=== PATIENT | male | born 1960 | race Caucasian/White ===

== ENCOUNTER 2018-11-25 16:34 | Emergency (ER) | payer BC ==
[2018-11-25] MEDS ORDERED: DIPH,PERTUS(ACELL)TETVAC-LF 0.5 ML VIAL IM ONE (17:23)
--- NOTE | 2018-11-25 17:48 | ED ---
General Adult HPI - General Chief complaint: Wound/Laceration Stated complaint: Finger Lac Time Seen by Provider: 11/25/18 16:54 Source: patient, RN notes reviewed Mode of arrival: ambulatory Limitations: no limitations - History of Present Illness Initial comments: 58-year-old male percent to the emergency department for a chief of an of laceration. This occurred about one hour prior to arrival. Patient was working on duct work in his house when he accidentally lacerated the third and fourth digit of his right hand. Patient denies any difficulty with movement of the fingers. He denies any other injuries. Tetanus is not up-to-date. Patient has no other complaints at this time including shortness of breath, chest pain, abdominal pain, nausea or vomiting, headache, or visual changes. - Related Data Previous Rx's Medication Instructions Recorded Cephalexin [Keflex] 500 mg PO Q6HR 3 Days #12 cap 11/25/18 Allergies Allergy/AdvReac Type Severity Reaction Status Date / Time No Known Allergies Allergy Verified 11/25/18 16:45 Review of Systems ROS Statement: Those systems with pertinent positive or pertinent negative responses have been documented in the HPI. ROS Other: All systems not noted in ROS Statement are negative. Past Medical History Past Medical History: No Reported History History of Any Multi-Drug Resistant Organisms: None Reported Past Surgical History: Tonsillectomy Past Psychological History: No Psychological Hx Reported Smoking Status: Never smoker Past Alcohol Use History: Occasional Past Drug Use History: None Reported General Exam Limitations: no limitations General appearance: alert, in no apparent distress Head exam: Present: atraumatic, normocephalic, normal inspection Eye exam: Present: normal appearance, PERRL, EOMI. Absent: scleral icterus, conjunctival injection, periorbital swelling ENT exam: Present: normal exam, mucous membranes moist Neck exam: Present: normal inspection, full ROM. Absent: tenderness, meningismus, lymphadenopathy Respiratory exam: Present: normal lung sounds bilaterally. Absent: respiratory distress, wheezes, rales, rhonchi, stridor Cardiovascular Exam: Present: regular rate, normal rhythm, normal heart sounds. Absent: systolic murmur, diastolic murmur, rubs, gallop, clicks Extremities exam: Present: full ROM (Full range of motion of the right third MCP , PIP, and DIP joint. Full range of motion of the fourth right MCP, PIP, DIP joint.), normal capillary refill (Capillary refill less than 2 seconds in the third and fourth right fingers. Radial pulse 2+.), other (Patient does have a 1 cm laceration over the third dorsal DIP joint of the right finger as well as a 1.5 cm laceration over the fourth dorsal DIP joint of the right finger. No evidence of deep structure involvement. No foreign bodies on exam.) Neurological exam: Present: alert, oriented X3, CN II-XII intact Psychiatric exam: Present: normal affect, normal mood Course Vital Signs 11/25/18 16:42 Temperature 98.6 F Pulse Rate 65 Respiratory 20 Rate Blood Pressure 150/85 O2 Sat by Pulse 100 Oximetry Procedures - Laceration Laceration #1 Indication: laceration Site: other (Third right finger) Size (cm): 1 Description: linear Depth: simple, single layer Anesthetic Used: lidocaine 1% Anesthesia Technique: local infiltration Amount (mls): 2 Pre-repair: wound explored, irrigated extensively, deep structures intact Type of Sutures: other (ethilon) Size of Sutures: 5-0 Number of Sutures: 2 Technique: simple, interrupted Patient Tolerated Procedure: well, no complications Laceration #2 Consent Obtained: verbal consent Indication: laceration Site: other (4th finger) Size (cm): 2 Description: linear Depth: simple, single layer Anesthetic Used: lidocaine 1% Anesthesia Technique: local infiltration Amount (mls): 2 Pre-repair: wound explored, irrigated extensively, deep structures intact Type of Sutures: other (ethilon) Size of Sutures: 5-0 Number of Sutures: 3 Technique: simple, interrupted Patient Tolerated Procedure: well, no complications Medical Decision Making - Medical Decision Making 50-year-old male presents to the emergency department for chief complaint of laceration to the right third and fourth digits. Tetanus was updated. Patient has full range motion of the joints in the right third and fourth fingers, no evidence of tendon injury. No foreign bodies evident. Wound was cleaned thoroughly with soap and water and saline pressure irrigation. It was then sutured with simple interrupted sutures without any Medications. Patient was given 3 days of antibiotics as lacerations are on dorsal fingers. Discussed watching for signs of infection. Discussed returning in 7-10 days to have sutures removed. Patient will follow up with primary care for a wound recheck in one to 2 days. Disposition Clinical Impression: Laceration Disposition: HOME SELF-CARE Condition: Good Instructions (If sedation given, give patient instructions): Care For Your Stitches (ED), Laceration (ED) Additional Instructions: Please keep area clean. Monitor for signs of infection such as spreading or streaking redness and return if these occur. Take antibiotic as directed. Follow up with primary care for a wound recheck in one to 2 days. Return to have Sutures removed in 7-10 days. Return if you have any worsening symptoms or signs of infection. Prescriptions: Cephalexin [Keflex] 500 mg PO Q6HR 3 Days #12 cap Is patient prescribed a controlled substance at d/c from ED?: No Referrals: Rick Ventura MD [Primary Care Provider] - 1-2 days Time of Disposition: 17:46
[2018-11-25 18:05] VITALS: BP 139/81; PULSE 68; RESP 18; TEMP 98.1
== END 2018-11-25 18:05 | disposition home or self-care (01) ==
LOC: EC 16:34
DX: S61.212A Laceration without foreign body of right middle finger without damage to nail, initial encounter (principal); S61.214A Laceration without foreign body of right ring finger without damage to nail, initial encounter; Z23 Encounter for immunization; W26.8XXA Contact with other sharp object(s), not elsewhere classified, initial encounter; Y93.89 Activity, other specified; Y92.009 Unspecified place in unspecified non-institutional (private) residence as the place of occurrence of the external cause
CPT/HCPCS: 12002; 90471; 90715; 99282

== ENCOUNTER 2020-07-02 17:00 | Emergency (ER) | payer BC ==
[2020-07-02 17:10] VITALS: TEMP 98.3
--- NOTE | 2020-07-02 17:45 | ED ---
General Adult HPI - General Chief complaint: Wound/Laceration Stated complaint: wrist lac Time Seen by Provider: 07/02/20 17:16 Source: patient, RN notes reviewed Mode of arrival: ambulatory Limitations: no limitations - History of Present Illness Initial comments: 60-year-old male presents to the ER for laceration of the right wrist. Patient reports that he was using a utility knife when it slipped and cut him in the right wrist. States it was bleeding. Denies any pulsatile bleeding. Denies any numbness in his hand. Denies any difficulty flexing or extending his wrist. Patient is up-to-date on tetanus.Patient has no other complaints at this time including shortness of breath, chest pain, abdominal pain, nausea or vomiting, headache, or visual changes. - Related Data Previous Rx's Medication Instructions Recorded Cephalexin [Keflex] 500 mg PO Q6HR 3 Days #12 cap 11/25/18 Cephalexin [Keflex] 500 mg PO TID 7 Days #21 cap 07/02/20 Allergies Allergy/AdvReac Type Severity Reaction Status Date / Time No Known Allergies Allergy Verified 07/02/20 17:08 Review of Systems ROS Statement: Those systems with pertinent positive or pertinent negative responses have been documented in the HPI. ROS Other: All systems not noted in ROS Statement are negative. Past Medical History Past Medical History: Hyperlipidemia, Hypertension History of Any Multi-Drug Resistant Organisms: None Reported Past Surgical History: Tonsillectomy Past Psychological History: No Psychological Hx Reported Smoking Status: Former smoker Past Alcohol Use History: Daily Past Drug Use History: None Reported General Exam Limitations: no limitations General appearance: alert, in no apparent distress Head exam: Present: atraumatic, normocephalic, normal inspection Eye exam: Present: normal appearance ENT exam: Present: normal exam, mucous membranes moist Neck exam: Present: normal inspection. Absent: tenderness, meningismus, lymphadenopathy Respiratory exam: Present: normal lung sounds bilaterally. Absent: respiratory distress, wheezes, rales, rhonchi, stridor Cardiovascular Exam: Present: regular rate, normal rhythm, normal heart sounds. Absent: systolic murmur, diastolic murmur, rubs, gallop, clicks Extremities exam: Present: other (Patient has a 7 mm duration noted to the volar aspect of the right distal forearm about 6 cm from the flexor crease of the wrist. This is in the midline of the wrist and is not near radial or ulnar arteries.) Course Vital Signs 07/02/20 17:05 Temperature 98.3 F Pulse Rate 73 Respiratory 18 Rate Blood Pressure 198/98 O2 Sat by Pulse 98 Oximetry Procedures - Laceration Laceration #1 Consent Obtained: verbal consent Indication: laceration Site: upper extremity Size (cm): 1 Description: linear Depth: simple, single layer Type of Sutures: nylon Size of Sutures: 5-0 Number of Sutures: 1 Technique: simple, interrupted Patient Tolerated Procedure: well, no complications Medical Decision Making - Medical Decision Making No bleeding at this time. No history of pulsatile bleeding. Laceration does not involve area near arteries. It is less than a centimeter. No obvious tendon injury. Patient was started on antibiotics given dirty nature of wound. Sutured with one suture after thorough irrigation to approximate wound margins. Patient was given return parameters and follow-up instructions. Disposition Clinical Impression: Laceration Disposition: HOME SELF-CARE Condition: Good Instructions (If sedation given, give patient instructions): Care For Your Stitches (ED), Laceration (ED) Additional Instructions: Please clean the area thoroughly. Monitor for signs of infection such as spreading or streaking redness, drainage, fever and return if these occur. Take antibiotic as directed. Follow-up with your doctor. Return in 7-10 days for suture removal. Prescriptions: Cephalexin [Keflex] 500 mg PO TID 7 Days #21 cap Is patient prescribed a controlled substance at d/c from ED?: No Referrals: Rick Ventura MD [Primary Care Provider] - 1-2 days Time of Disposition: 17:44
[2020-07-02 18:01] VITALS: BP 143/98; PULSE 60; RESP 16
== END 2020-07-02 18:00 | disposition home or self-care (01) ==
LOC: EC 17:00
DX: S61.511A Laceration without foreign body of right wrist, initial encounter (principal); Z87.891 Personal history of nicotine dependence; W26.0XXA Contact with knife, initial encounter; Y93.9 Activity, unspecified
CPT/HCPCS: 12002; 99282

== ENCOUNTER → 2024-02-10 | Outpatient (CLI) | payer BC | END | disposition home or self-care (01) | LOC: LABWHC1 07:10 | PROVIDERS: ATTEND Urology | DX: R97.20 Elevated prostate specific antigen [PSA] (principal) | CPT/HCPCS: 36415; 84153 ==

== ENCOUNTER → 2024-03-08 | Outpatient (CLI) | payer BC ==
--- NOTE | 2024-03-08 20:18 | MR ---
EXAMINATION TYPE: MR Prostate wo/w con DATE OF EXAM: 03/08/2024 7:11 AM COMPARISON: None. CLINICAL INDICATION:Male, 64 years old with history of R97.20 ELEVATED PSA; Elevated PSA. TECHNIQUE: Multi-planar, multi-sequence imaging of the pelvis is performed prior to and following the uncomplicated administration of bolus intravenous gadolinium. CONTRAST: 9 Gadavist Interpretive Criteria: PI-RADS v2.1 SERUM PSA: 8.4 on 02/10/2024. 5.9 on 08/19/23. SURGICAL PATHOLOGY: No data available. FINDINGS: Prostatic dimensions: 4.5 x 5.2 x 3.1 cm. "Bullet" Volume:47.48 (PSA density=0.18 ng/mL/mL CENTRAL GLAND (Central and Transition Zones/CZ+TZ): Multiple bilateral, heterogenous appearing hypertrophic stromal nodules, without suspicious lesion. (PI-RADS 2) PERIPHERAL ZONE (PZ): No evidence of masslike abnormality, or localized perfusional hypervascularity, to further suggest a focus of clinically significant prostate cancer. (PI-RADS 2) SEMINAL VESICLES (SV): Symmetric and unremarkable. PERIPROSTATIC TISSUES: Unremarkable. LYMPH NODES: No enlarged pelvic lymph node. REMAINING PELVIS: Bladder wall is within normal limits given distention. No abnormal free or organized intrapelvic fluid collection. No pathologic bowel dilation or mural thickening. Bilateral fat containing inguinal hernias. OSSEOUS STRUCTURES: No suspicious osseous abnormality. IMPRESSION: 1. No specific features for high-risk prostate cancer. Maximum PI-RADS score: 2. 2. Mild BPH, estimated gland volume 47.48 mL. 3. No suspicious osseous lesion. No lymphadenopathy. No evidence of prostate adenocarcinoma involving the periprostatic tissues.
== END | disposition home or self-care (01) ==
LOC: RADMRIMAIN 06:05
PROVIDERS: ATTEND Urology
DX: N40.0 Benign prostatic hyperplasia without lower urinary tract symptoms (principal); R97.20 Elevated prostate specific antigen [PSA]
CPT/HCPCS: 72197; A9585

== ENCOUNTER → 2024-03-10 | Day surgery (SDC) | payer BC ==
[2024-03-06 15:03] VITALS: BMI 26.4
[~2024-03-10] MED LIST: PROPOFOL 10 MG/ML 20 ML VIAL IV ONE
[2024-03-10 10:31] VITALS: RESP 16; TEMP 97.6
[2024-03-10] MEDS: LACTATED RINGERS 1,000 ML IV SCH (10:34)
--- NOTE | 2024-03-10 11:38 | P.PCN ---
Date of Procedure: 03/10/24 Procedure(s) Performed: BRIEF HISTORY: Patient is a 64-year-old pleasant white male scheduled for an elective colonoscopy as a part of screening for colon cancer. PROCEDURE PERFORMED: Colonoscopy. PREOPERATIVE DIAGNOSIS: Screening for colon cancer. IV sedation per Anesthesia. PROCEDURE: After informed consent was obtained, the patient, was brought into the endoscopy unit. IV sedation was administered by Anesthesia under continuous monitoring. Digital rectal examination was normal. Initially the Olympus CF-160 flexible video colonoscope was then inserted in the rectum, gradually advanced into the cecum without any difficulty. Careful examination was performed as the scope was gradually being withdrawn. Ileocecal valve and the appendiceal orifice were visualized and appeared normal. Prep was excellent. Mucosa of the cecum, ascending colon, transverse colon, descending colon, sigmoid colon, and rectum appeared normal. Scattered sigmoid diverticulosis. Retroflexion was performed in the rectum and no lesions were seen. The patient tolerated the procedure well. IMPRESSION: Normal-appearing colon from rectum to cecum with no evidence of colorectal neoplasia. Scattered sigmoid diverticulosis. RECOMMENDATIONS: Findings of this examination were discussed with the patient as well as his family. He was advised to have repeat screening colonoscopy in 10 years..
[2024-03-10 12:25] VITALS: BP 121/65; PULSE 54
== END ==
LOC: ORWHC2ENDO 09:54
PROVIDERS: ATTEND Internal Medicine Gastroenterology
DX: Z12.11 Encounter for screening for malignant neoplasm of colon (principal); K57.30 Diverticulosis of large intestine without perforation or abscess without bleeding; I10 Essential (primary) hypertension; E78.5 Hyperlipidemia, unspecified; F17.200 Nicotine dependence, unspecified, uncomplicated; Z79.899 Other long term (current) drug therapy
CPT/HCPCS: 45378; J2704

== ENCOUNTER 2024-07-19 21:25 | Inpatient (IN) | payer BC ==
--- NOTE | 2024-07-19 21:53 | ED ---
Chest Pain HPI - General Source: patient, RN notes reviewed Mode of arrival: ambulatory Limitations: no limitations <Sita Summers - Last Filed: 07/19/24 21:51> <Basim Peacock - Last Filed: 07/20/24 05:03> - General Chief Complaint: Chest Pain Stated Complaint: Chest Pressure, Hypertension Time Seen by Provider: 07/19/24 21:45 - History of Present Illness Initial Comments: Quick Note: This is a 64-year-old male who presents to the emergency department for concerns of chest pressure. States that last night he started to develop a slight pressure in the left side of his chest. Reports some left arm discomfort as well. States that this is along the biceps, but may be related to an ongoing shoulder issue he has been dealing with. Denies any history of heart problems. Denies any shortness of breath. (Sita Summers) 64-year-old male history of hypertension hypercholesterolemia presenting with chest pressure over the past 24 hours with radiation to the left arm and shoulder. No known history of coronary artery disease. No diaphoresis. Pain is nonexertional and has been present for 24 hours. (Basim Peacock) - Related Data Home Medications Medication Instructions Recorded Confirmed Aspirin 81 mg PO DAILY 03/06/24 03/06/24 Labetalol HCl 300 mg PO BID 03/06/24 03/06/24 Pravastatin Sodium [Pravachol] 40 mg PO DAILY 03/06/24 03/06/24 amLODIPine BESYLATE/BENAZEPRIL 1 cap PO HS 03/06/24 03/06/24 [amLODIPine BESYLATE/BENAZEPRIL 10-40 mg] Allergies Allergy/AdvReac Type Severity Reaction Status Date / Time No Known Allergies Allergy Verified 03/10/24 10:16 Review of Systems ROS Other: All systems not noted in ROS Statement are negative. <Sita Summers - Last Filed: 07/19/24 21:51> ROS Other: All systems not noted in ROS Statement are negative. <Basim Peacock - Last Filed: 07/20/24 05:03> ROS Statement: Those systems with pertinent positive or pertinent negative responses have been documented in the HPI. Past Medical History Past Medical History: Hyperlipidemia, Hypertension Additional Past Medical History / Comment(s): prostate ca-radiation tx History of Any Multi-Drug Resistant Organisms: None Reported Past Surgical History: Prostate Surgery, Tonsillectomy Past Psychological History: No Psychological Hx Reported Smoking Status: Former smoker Past Alcohol Use History: Daily Past Drug Use History: None Reported <Sita Summers - Last Filed: 07/19/24 21:51> General Exam Limitations: no limitations <Sita Summers - Last Filed: 07/19/24 21:51> General appearance: alert, in no apparent distress Head exam: Present: atraumatic, normocephalic Eye exam: Present: normal appearance, PERRL ENT exam: Present: normal exam Neck exam: Present: normal inspection. Absent: tenderness, meningismus Respiratory exam: Present: normal lung sounds bilaterally. Absent: respiratory distress, wheezes Cardiovascular Exam: Present: normal rhythm, bradycardia GI/Abdominal exam: Present: soft. Absent: distended, tenderness Extremities exam: Present: normal inspection, normal capillary refill Neurological exam: Present: alert, oriented X3 Psychiatric exam: Present: normal affect, normal mood Skin exam: Present: warm, dry, intact. Absent: cyanosis, diaphoretic <Basim Peacock - Last Filed: 07/20/24 05:03> - General Exam Comments Initial Comments: Visual Physical Exam Vital signs reviewed General: Well-appearing, nontoxic, no acute distress. Head: Normocephalic, atraumatic Eyes: PERRLA, EOMI ENT: Airway patent Chest: Nonlabored breathing Skin: No visual rash, normal skin tone Neuro: Alert and oriented 3 Musculoskeletal: No gross abnormalities (Sita Summers) Course <Basim Peacock - Last Filed: 07/20/24 05:03> Vital Signs 07/19/24 07/20/24 07/20/24 23:58 00:10 00:20 Pulse Rate 50 L 47 L 50 L Respiratory 22 16 18 Rate Blood Pressure 116/62 153/80 O2 Sat by Pulse 96 98 97 Oximetry 07/20/24 07/20/24 07/20/24 00:23 02:00 04:00 Pulse Rate 49 L 52 L 49 L Respiratory 18 18 16 Rate Blood Pressure 153/80 147/83 125/74 O2 Sat by Pulse 96 96 95 Oximetry - Reevaluation(s) Reevaluation #1: 07/20/24 04:46 Patient reevaluated, resting comfortably. Patient denies current chest pain (Basim Peacock) Chest Pain MDM <Sita Summers - Last Filed: 07/19/24 21:51> <EmigdioBasim dubon Lucina - Last Filed: 07/20/24 05:03> - MDM I performed the QuickNote portion of this chart. Signed Sita Summers PA-C. (Sita Summers) Was pt. sent in by a medical professional or institution ([facility], [employer] [facility], urgent care, hospital, or residential...) When possible be specific @ -No Did you speak to anyone other than the patient for history (EMS, parent, family, police, friend...)? What history was obtained from this source @ -No Did you review nursing and triage notes (agree or disagree)? Why? @ -I reviewed and agree with nursing and triage notes Were old charts reviewed (outside hosp., previous admission, EMS record, old EKG, old radiological studies, urgent care reports/EKG's, residential records)? Report findings @ -No old charts were reviewed Differential Chest Pain: Stable Angina, Unstable Angina, STEMI, NSTEMI Aortic Dissection, Pneumothorax, Musculoskeletal, Esophageal Spasm GERD, Cholecystitis, Pancreatitis, Zoster, this is not meant to be an all-inclusive list. EKG interpreted by me (3pts min.). @ -Sinus bradycardia rate of 51, TX interval 171, QRS duration 92, QTc 387, no ST segment elevation X-rays interpreted by me (1pt min.). @ -Chest x-ray is clear CT interpreted by me (1pt min.). @ -None done U/S interpreted by me (1pt. min.). @ -None done What testing was considered but not performed or refused? (CT, X-rays, U/S, labs)? Why? @ -None What meds were considered but not given or refused? Why? @ -None Did you discuss the management of the patient with other professionals (professionals i.e. [facility], [employer] WAITRESS, lab, RT, psych nurse, social work supervisor, school photographs detailer, teacher, community services officer, immigration case manager)? Give summary @Dr. Duval will admit, case discussed with Dr. Gerald albrecht for Cardiology. Was smoking cessation discussed for >3mins.? @ -No Was critical care preformed (if so, how long)? @ -Yes, 35 minutes Were there social determinants of health that impacted care today? How? (Homelessness, low income, unemployed, alcoholism, drug addiction, transportation, low edu. Level, literacy, decrease access to med. care, senior living, rehab)? @ -No Was there de-escalation of care discussed even if they declined (Discuss DNR or withdrawal of care, Hospice)? DNR status @ -No What co-morbidities impacted this encounter? (DM, HTN, Smoking, COPD, CAD, Cancer, CVA, ARF, Chemo, Hep., AIDS, mental health diagnosis, sleep apnea, morbid obesity)? @Hypertension hyperlipidemia Was patient admitted / discharged? Hospital course, mention meds given and route, prescriptions, significant lab abnormalities, going to OR and other pertinent info. @ -64-year-old male with chest pain over the past 24 hours. EKG shows Q-wave in lead III and aVF, no ST segment elevation. Patient appears comfortable on exam. Chest x-ray is clear. Normal CBC, normal CMP, initial troponin is 0.38 consistent with non-ST segment elevated [place]. Patient admitted to internal medicine with cardiology on consultation. Undiagnosed new problem with uncertain prognosis? @ -No Drug Therapy requiring intensive monitoring for toxicity (Heparin, Nitro, Insulin, Cardizem)? @ -No Were any procedures done? @ -No Diagnosis/symptom? @ -NSTEMI Acute, or Chronic, or Acute on Chronic? @ -Acute Uncomplicated (without systemic symptoms) or Complicated (systemic symptoms)? @ -Default Side effects of treatment? @ -No Exacerbation, Progression, or Severe Exacerbation? @ -No Poses a threat to life or bodily function? How? (Chest pain, [place], [place], pneumonia, PE, COPD, DKA, ARF, appy, cholecystitis, CVA, Diverticulitis, Homicidal, Suicidal, threat to staff... and all critical care pts) @ -[Yes, ACS (Basim Peacock) Critical Care Time Critical Care Time: Yes Total Critical Care Time: 35 <Basim Peacock - Last Filed: 07/20/24 05:03> Disposition <Sita Summers - Last Filed: 07/19/24 21:51> Is patient prescribed a controlled substance at d/c from ED?: No Time of Disposition: 00:21 <Basim Peacock - Last Filed: 07/20/24 05:03> Clinical Impression: Acute non-ST elevation myocardial infarction (NSTEMI) Disposition: ADMITTED IP TO THIS HOSP Condition: Stable
[2024-07-19 22:26] LABS: Basophils % (A) 0 %; Eosinophils # (A) 0.3 k/uL (0-0.7); Eosinophils % (A) 4 %; HCT 41.5 % (39.0-53.0); HGB 13.4 gm/dL (13.0-17.5); Lymphocytes # (A) 1.4 k/uL (1.0-4.8); Lymphocytes % (A) 22 %; MCH 29.6 pg (25.0-35.0); MCHC 32.3 g/dL (31.0-37.0); MCV 91.6 fL (80.0-100.0); Mean Platelet Volume 7.1; Monocytes # (A) 0.4 k/uL (0-1.0); Monocytes % (A) 6 %; Neutrophils # (A) 4.2 k/uL (1.3-7.7); Neutrophils % (A) 66 %; Platelet Count 314 k/uL (150-450); RBC 4.53 m/uL (4.30-5.90); RDW 13.1 % (11.5-15.5); WBC 6.4 k/uL (3.8-10.6)
[2024-07-19 22:35] LABS: ALT 21 U/L (4-49); African American GFR (CKD) >90 (>60 ml/min/1.73 sqM); Anion Gap 5 mmol/L; Blood Urea Nitrogen 14 mg/dL (9-20); Calcium 9.7 mg/dL (8.4-10.2); Carbon Dioxide 22 mmol/L (22-30); Chloride 110 mmol/L (98-107); Glucose 117 mg/dL (74-99); Non-African American GFR(CKD) >90 (>60 ml/min/1.73 sqM); Sodium 137 mmol/L (137-145); Total Bilirubin 0.7 mg/dL (0.2-1.3)
[2024-07-19 22:38] LABS: INR 0.9 (<1.2); Partial Thromboplastin Time 25.6 sec (22.0-30.0); Prothrombin Time 10.1 sec (10.0-12.5)
[2024-07-19 22:39] LABS: AST 38 U/L (17-59); Albumin 4.2 g/dL (3.5-5.0); Alkaline Phosphatase 49 U/L (38-126); Magnesium 1.9 mg/dL (1.6-2.3); Potassium 4.6 mmol/L (3.5-5.1); Total Protein 6.8 g/dL (6.3-8.2)
--- NOTE | 2024-07-20 00:08 | XR ---
EXAM: XR Chest, 2 Views CLINICAL HISTORY: ITS.REASON XR Reason: Chest Pain TECHNIQUE: Frontal and lateral views of the chest. COMPARISON: No relevant prior studies available. FINDINGS: Lungs: Unremarkable. No consolidation. Pleural space: Unremarkable. No pneumothorax. Heart: Unremarkable. No cardiomegaly. Mediastinum: Unremarkable. Normal mediastinal contour. Bones/joints: Unremarkable. No acute fracture. IMPRESSION: No consolidation.
[2024-07-20] MEDS ORDERED: NITROGLYCERIN SL TABS 0.4 MG TAB SUBLINGUAL PRN ×2 (00:10→08:45)
[2024-07-20] MEDS: HEPARIN SODIUM 1,000 UN/ML (10ML VL) IV ONE (00:25)
[2024-07-20] MEDS: HEPARIN SOD,PORK IN 0.45% NACL 25,000 UNIT in 0.45% NACL 1 250ML.BAG IV SCH ×2 (00:27→17:51)
[2024-07-20] MEDS: ASPIRIN 325 MG TAB PO STA ×2 (00:39→09:23)
[2024-07-20] MEDS: NITROGLYCERIN OINT 1 INCH/GM PACKET TOPICAL STA (01:09)
--- NOTE | 2024-07-20 01:31 | P.HPIM ---
History of Present Illness H&P Date: 07/20/24 Patient is a 64-year-old male with a PMH of prostate cancer currently undergoing radiation therapy, hypertension, hyperlipidemia, and remote history of tobacco abuse who presented to the emergency room with complaints of chest and arm discomfort. Patient reported that over the past 3 to 4 days he has been experiencing left arm soreness which was making it difficult for him to sleep. He noted that roughly 24 hours ago he developed substernal chest pressure, 5 out of 10 at maximal intensity, with some radiation down to the left arm, nonexertional, with no alleviating or exacerbating features. Reported ongoing pain at the time of interview, 4 out of 10. He denied any associated symptoms. Denied experiencing shortness of breath, nausea, vomiting, diaphoresis, or dizziness. Also denies fever, chills, cough, abdominal pain, diarrhea. In the emergency room and EKG revealed sinus rhythm at 51 bpm with inferior lead Q waves with no additional ST/T wave changes noted as reviewed by me. Chest x- ray revealed no abnormalities. Laboratory evaluation was remarkable for troponin of 0.386 with a WBC count 6.4, hemoglobin 13.4, and sodium 137. ED documentation reviewed and case discussed with ED provider. Review of systems: Pertinent positives and negatives as discussed in HPI, a complete review of systems was performed and all other systems are negative. Physical examination: Vital signs reviewed General: non toxic, no distress, appears at stated age, overweight Derm: no unusual rashes/lesions, warm Head: atraumatic, normocephalic, symmetric Eyes: EOMI, no lid lag, anicteric sclera, pupils equal round reactive to light ENT: Nose and ears atraumatic Neck: No cervical lymphadenopathy, trachea midline, supple Mouth: no lip lesion, mucus membranes moist Cardiovascular: S1S2 reg, no murmur, positive dorsalis pedis pulse bilateral, no edema Lungs: CTA bilateral, no rhonchi, no rales, no accessory muscle use Abdominal: soft, nontender to palpation, no guarding Ext: muscle strength 5 out of 5 in all 4 extremities grossly, no gross muscle atrophy, no contractures, Neuro: CN II-XI grossly intact, no gross focal neuro deficits Psych: Alert, oriented, appropriate affect Assessment: Non-ST elevation TN Chronic conditions: Hypertension, hyperlipidemia Imaging: In the emergency room and EKG revealed sinus rhythm at 51 bpm with inferior lead Q waves with no additional ST/T wave changes noted as reviewed by me. Chest x- ray revealed no abnormalities. Data Review: Laboratory evaluation was remarkable for troponin of 0.386 with a WBC count 6.4, hemoglobin 13.4, and sodium 137. Plan: Continue with heparin infusion Cardiology consulted Cardiac monitoring N.p.o. for now Continue with aspirin and statin Trend troponin Echocardiogram ordered Follow-up A1c and lipid panel Resume home antihypertensive once reconciled Nitro-Bid ordered DVT prophylaxis: Heparin infusion The patient is admitted with an anticipated greater than 2 midnight stay for evaluation of non-ST elevation TN CODE STATUS: Full Code Discussed with: Patient Anticipated discharge place: Home Past Medical History Past Medical History: Hyperlipidemia, Hypertension Additional Past Medical History / Comment(s): prostate ca-radiation tx History of Any Multi-Drug Resistant Organisms: None Reported Past Surgical History: Prostate Surgery, Tonsillectomy Past Psychological History: No Psychological Hx Reported Smoking Status: Former smoker Past Alcohol Use History: Daily Past Drug Use History: None Reported - Past Family History Father Additional Family Medical History / Comment(s): prostate cancer in uncle Medications and Allergies Home Medications Medication Instructions Recorded Confirmed Type Aspirin 81 mg PO DAILY 03/06/24 03/06/24 History Labetalol HCl 300 mg PO BID 03/06/24 03/06/24 History Pravastatin Sodium [Pravachol] 40 mg PO DAILY 03/06/24 03/06/24 History amLODIPine BESYLATE/BENAZEPRIL 1 cap PO HS 03/06/24 03/06/24 History [amLODIPine BESYLATE/BENAZEPRIL 10-40 mg] Allergies Allergy/AdvReac Type Severity Reaction Status Date / Time No Known Allergies Allergy Verified 03/10/24 10:16 Physical Exam Vitals: Vital Signs Pulse Resp BP Pulse Ox 07/20/24 00:20 50 L 18 153/80 97 07/20/24 00:10 47 L 16 98 07/19/24 23:58 50 L 22 116/62 96 Intake and Output 07/19/24 07/19/24 07/20/24 14:59 22:59 06:59 Other: Weight 86.183 kg Results CBC & Chem 7: 07/19/24 22:14 07/19/24 22:14 Labs: Abnormal Lab Results - Last 24 Hours (Table) 07/19/24 07/19/24 Range/Units 22:14 22:14 Chloride 110 H (98-107) mmol/L Glucose 117 H (74-99) mg/dL Troponin I 0.386 H* (0.000-0.034) ng/mL
[2024-07-20] MEDS: ATORVASTATIN 80 MG TAB PO ONE (01:58)
[2024-07-20] MEDS: HEPARIN SODIUM 1,000 UN/ML (10ML VL) MISCELLANE ONE (06:08)
[2024-07-20] MEDS: ASPIRIN 81 MG PO SCH (07:53)
[2024-07-20] MEDS ORDERED: ALPRAZolam 0.5 MG TAB PO PRN (08:45)
[2024-07-20] MEDS ORDERED: ALPRAZolam 0.25 MG TAB PO PRN (08:45)
[2024-07-20] MEDS ORDERED: METOPROLOL TARTRATE 25 MG TAB PO SCH (09:00)
[2024-07-20] MEDS: LABETALOL 100 MG TAB PO SCH (09:21)
[2024-07-20] MEDS: ATORVASTATIN 80 MG TAB PO STA (09:21)
[2024-07-20] MEDS: SODIUM CHLORIDE 0.9% 1,000 ML IV SCH ×2 (09:21→12:08)
[2024-07-20] MEDS: ASPIRIN 81 MG PO STA (09:21)
[2024-07-20 09:42] LABS: Chol/HDL Ratio 3.16 Ratio; LDL Cholesterol,Calculated 96.6 mg/dL (0.0-131.0); VLDL Calculation 13.36 mg/dL (5.00-40.00)
[2024-07-20] MEDS: SODIUM CHLORIDE 0.9% 1,000 ML IV ONE (11:14)
[2024-07-20] MEDS: HEPARIN SODIUM,PORCINE 10,000 UNIT in SODIUM CHLORIDE 0.9% 1,000 ML IRRIGATION ONE (11:14)
[2024-07-20] MEDS: HEPARIN SODIUM,PORCINE (1 ML) 2,500 UNIT in SODIUM CHLORIDE 0.9% 250 ML IRRIGATION ONE (11:14)
[2024-07-20] MEDS: fentaNYL (PF) 50 MCG/ML 2 ML AMP IVP ONE (11:35)
[2024-07-20] MEDS: LIDOCAINE 1% INJ 10MG/ML (20 ML MDV) SQ ONE (11:39)
[2024-07-20] MEDS: VERAPAMIL SYRINGE (5 MG/10 ML) INTRAARTER ONE (11:40)
[2024-07-20] MEDS: HEPARIN SODIUM 1,000 UN/ML (10ML VL) IVP ONE (11:44)
[2024-07-20] MEDS: IOPAMIDOL-370 100ML BTL INJ ONE (11:53)
[2024-07-20] MEDS ORDERED: RX INFO: IV CONTRAST WAS GIVEN 1 EACH MISC MISCELLANE PRN (12:11)
--- NOTE | 2024-07-20 12:20 | P.CARDCATH ---
Date of Procedure: 07/20/24 Description of Procedure: Cardiac Catheterization: The patient is a 64-year-old male with known history of hypertension, hyperlipidemia, history of prostate cancer who is being evaluated for radiation therapy who presented with symptoms of chest discomfort, radiating to the left arm with no significant EKG changes but with troponin abnormalities consistent with non-STEMI. Recommendations were made regarding cardiac catheterization, the risks and the complications were discussed with the patient who is in full understanding and agreement. Procedure Description: Patient was brought to parking lot laborer in fasting semi-sedated state after receiving Fentanyl and Benadryl achieiving moderate conscious sedated state. Using Xylocaine Anesthesia and modified Seldinger technique, a 6-Moroccan sheath was introduced in the right radial artery . Subsequently, selective coronary angiography was performed using a 5-Moroccan 3.5 bend Viji catheter. Multiple views of the coronary artery including hemiaxial views were obtained. The 6 Moroccan pigtail catheter was used to cross the aortic valve and LVEDP was calculated. Following that, catheter and sheath were removed. Hemostasis was obtained with deployment of vascular band . There was no immediate complication. Patient was returned to room in stable condition. Of note, the patient received a total of 4500 units of intravenous heparin as well as intra-arterial verapamil. Findings: Fluoroscopy: Calcifications in the proximal LAD was noted Left main: This is a large size vessel, bifurcating into LAD and left circumflex, left main has no high-grade stenosis LAD: This is a large size vessel, reaching to the apex with a wraparound apex segment. In the proximal LAD at the takeoff of the first septal supplier quality specialist and the diagonal branch there is a 90% stenosis involving the takeoff of the diagonal branch. The diagonal branch is moderate to large in caliber. The rest of the vessel has mild intimal disease with no high-grade stenosis. Left circumflex: This is a codominant vessel, large in caliber, giving rise to 2 obtuse marginal branch. The first obtuse marginal branch has a 70% stenosis proximally. The left circumflex after the obtuse marginal branch takeoff is tortuous the second obtuse marginal branch has no high-grade stenosis. RCA: This is a codominant, bifurcating distally to PDA and PLV. The PLV is subtotally occluded with a NINA I flow. The takeoff of the PLV has a 99% stenosis. The proximal RCA has a 70% stenosis and there is another 60 to 70% plaque in the mid RCA after the takeoff of the acute marginal branch that has a tubular lesion proximally of about 70%. Left Ventriculogram: Not performed Hemodynamics: There was no gradient across aortic valve, LVEDP was 26-30 mmHg Conclusion: 1. Severe triple-vessel disease with slow flow in the PLV that could be the culprit lesion 2. Codominant system 3. Elevated LVEDP Recommendations: In view of the anatomy I have recommended to obtain surgical evaluation for CABG in the meantime he will continue on aggressive coronary risks modifications awaiting the input of the cardiovascular surgical team. The findings and the recommendations were discussed with the patient and the family and they were in full understanding and agreement. Duration of sedation is 18 minutes.
[2024-07-20 13:26] LABS: Basophils % (A) 0 %; Eosinophils # (A) 0.2 k/uL (0-0.7); Eosinophils % (A) 3 %; HCT 40.1 % (39.0-53.0); Lymphocytes # (A) 1.2 k/uL (1.0-4.8); Lymphocytes % (A) 20 %; MCHC 32.5 g/dL (31.0-37.0); MCV 92.5 fL (80.0-100.0); Mean Platelet Volume 7.7; Monocytes # (A) 0.2 k/uL (0-1.0); Monocytes % (A) 4 %; Neutrophils # (A) 4.5 k/uL (1.3-7.7); Neutrophils % (A) 72 %; Platelet Count 306 k/uL (150-450); RBC 4.33 m/uL (4.30-5.90); RDW 13.2 % (11.5-15.5); WBC 6.3 k/uL (3.8-10.6)
[2024-07-20 13:34] LABS: Prothrombin Time 10.7 sec (10.0-12.5)
--- NOTE | 2024-07-20 13:43 | P.GSCN ---
History of Present Illness Consult date: 07/20/24 Reason for Consult: Coronary artery disease, non-STEMI this admission Requesting physician: Meir Castillo History of present illness: This is a 64-year-old gentleman who follows outpatient with Dr. Dey for internal medicine and Dr. Castillo for cardiology. He has a previous medical history of hypertension, hyperlipidemia, prostate cancer in the process of getting radiation therapy, previous tobacco dependence, and daily wine usage. He presented to [facility] emergency room with complaints of chest pain with radiation to the left arm, denied shortness of breath, nausea, diaphoresis, or any other significant symptoms. States he has never had this kind of pain before. EKG demonstrated sinus bradycardia with heart rate in the low 50s. Chest x-ray was unremarkable. Lab work was unremarkable except elevated troponin 0.386, patient was ruled in for non-STEMI and admitted for evaluation and treatment. He was taken to the [facility] this morning by Dr. Castillo, catheterization showed proximal LAD stenosis 90%, first obtuse marginal artery stenosis 70%, PLV subtotally occluded, proximal RCA stenosis 70%, and mid RCA stenosis 60 to 70%. Due to these findings consultation was placed to Dr. Dey for surgical revascularization recommendations. Review of Systems Review of systems was completed and was negative except as noted - Cardiovascular Reports as per HPI, Reports chest pain Past Medical History Past Medical History: Coronary Artery Disease (CAD), Hyperlipidemia, Hypertension Additional Past Medical History / Comment(s): prostate ca-radiation tx History of Any Multi-Drug Resistant Organisms: None Reported Past Surgical History: Tonsillectomy Past Psychological History: No Psychological Hx Reported Smoking Status: Former smoker Past Alcohol Use History: Daily Additional Past Alcohol Use History / Comment(s): Drinks wine daily Past Drug Use History: None Reported Additional History: Quit smoking 34 years ago - Past Family History Father Family Medical History: Myocardial Infarction (DC) Additional Family Medical History / Comment(s): Parkinson's; prostate cancer in uncle Medications and Allergies Home Medications Medication Instructions Recorded Confirmed Type Aspirin 81 mg PO DAILY 03/06/24 07/20/24 History Labetalol HCl 300 mg PO Q12H 03/06/24 07/20/24 History Pravastatin Sodium [Pravachol] 40 mg PO DAILY 03/06/24 07/20/24 History amLODIPine BESYLATE/BENAZEPRIL 1 cap PO HS 03/06/24 07/20/24 History [amLODIPine BESYLATE/BENAZEPRIL 10-40 mg] Allergies Allergy/AdvReac Type Severity Reaction Status Date / Time No Known Allergies Allergy Verified 07/20/24 07:24 Surgical - Exam Vital Signs Pulse Resp BP Pulse Ox 50 L 22 116/62 96 07/19/24 23:58 07/19/24 23:58 07/19/24 23:58 07/19/24 23:58 CONSTITUTIONAL: Awake and alert, appears comfortable, cooperative, well- developed, well-nourished, no pain, no acute distress EYES: Pupils equal, round, reactive to light, normal ocular movement ENT: Moist mucous membranes without oral lesions present NECK: No masses, no bruits, trachea midline RESPIRATORY: Lungs sounds clear to auscultation bilaterally. Respirations even, nonlabored. Currently on room air with oxygen saturation 96%. Strong cough. No chest wall deformities. No clubbing or cyanosis present CARDIOVASCULAR: S1, S2 present. Regular rate and rhythm, sinus rhythm on telemetry. Palpable peripheral pulses bilaterally. No edema present. No calf pain or tenderness noted. No significant lower extremity varicosities noted GASTROINTESTINAL: Abdomen soft, nontender, nondistended without masses or organomegaly noted. There is no rebound or guarding present. Active bowel sounds present 4 quadrants. GENITOURINARY: Deferred INTEGUMENTARY: Skin is warm and dry with evidence of good perfusion. NEUROLOGIC: Cranial nerves II through XII intact, normal coordination, no obvious motor or sensory deficits, speech is normal MUSKULOSKELETAL: Able to move all extremities, strength equal bilaterally, normal posture PSYCHIATRIC: Alert and oriented to person place and time, appropriate affect, intact judgment and insight CLINICAL FRAILTY SCORE 2 Results - Labs 07/20/24 13:04 07/19/24 22:14 Abnormal Lab Results - Last 24 Hours (Table) 07/19/24 07/19/24 07/20/24 Range/Units 22:14 22:14 00:09 APTT (22.0-30.0) sec Chloride 110 H (98-107) mmol/L Glucose 117 H (74-99) mg/dL Troponin I 0.386 H* 1.130 H* (0.000-0.034) ng/mL 07/20/24 07/20/24 07/20/24 Range/Units 04:08 04:12 09:46 APTT 39.3 H 52.0 H (22.0-30.0) sec Chloride (98-107) mmol/L Glucose (74-99) mg/dL Troponin I 2.530 H* (0.000-0.034) ng/mL Diabetes panel 07/19/24 07/20/24 07/20/24 Range/Units 22:14 04:12 04:12 Sodium 137 (137-145) mmol/L Potassium 4.6 (3.5-5.1) mmol/L Chloride 110 H (98-107) mmol/L Carbon Dioxide 22 (22-30) mmol/L BUN 14 (9-20) mg/dL Creatinine 0.85 (0.66-1.25) mg/dL Glucose 117 H (74-99) mg/dL Hemoglobin A1c 5.7 (<=6.0) % Calcium 9.7 (8.4-10.2) mg/dL AST 38 (17-59) U/L ALT 21 (4-49) U/L Alkaline Phosphatase 49 (38-126) U/L Total Protein 6.8 (6.3-8.2) g/dL Albumin 4.2 (3.5-5.0) g/dL Triglycerides 66.80 (0.00-149.00) mg/dL HDL Cholesterol 51.00 (40.00-60.00) mg/dL Calcium panel 07/19/24 Range/Units 22:14 Calcium 9.7 (8.4-10.2) mg/dL Albumin 4.2 (3.5-5.0) g/dL Pituitary panel 07/19/24 Range/Units 22:14 Sodium 137 (137-145) mmol/L Potassium 4.6 (3.5-5.1) mmol/L Chloride 110 H (98-107) mmol/L Carbon Dioxide 22 (22-30) mmol/L BUN 14 (9-20) mg/dL Creatinine 0.85 (0.66-1.25) mg/dL Glucose 117 H (74-99) mg/dL Calcium 9.7 (8.4-10.2) mg/dL Adrenal panel 07/19/24 Range/Units 22:14 Sodium 137 (137-145) mmol/L Potassium 4.6 (3.5-5.1) mmol/L Chloride 110 H (98-107) mmol/L Carbon Dioxide 22 (22-30) mmol/L BUN 14 (9-20) mg/dL Creatinine 0.85 (0.66-1.25) mg/dL Glucose 117 H (74-99) mg/dL Calcium 9.7 (8.4-10.2) mg/dL Total Bilirubin 0.7 (0.2-1.3) mg/dL AST 38 (17-59) U/L ALT 21 (4-49) U/L Alkaline Phosphatase 49 (38-126) U/L Total Protein 6.8 (6.3-8.2) g/dL Albumin 4.2 (3.5-5.0) g/dL - Imaging Chest x-ray: report reviewed, image reviewed EKG: image reviewed Additional studies: Heart catheterization films reviewed with Dr. Dey Assessment and Plan Assessment: Triple-vessel coronary artery disease, non-STEMI this admission Chest pain on admission History of hypertension Hyperlipidemia, treated, cholesterol 161, LDL 97 Previous tobacco dependence Daily wine usage Prostate cancer, pending radiation therapy Plan: The patient was seen and examined at the bedside on the cardiac stepdown unit sitting up in no acute distress. Currently denies any chest pain or shortness of breath. The usual perioperative course of open heart surgery was discussed in detail with the patient and his , risks and benefits were reviewed, all questions were answered. We will initiate preoperative testing, once completed we will calculate STS risk score and discuss with the patient. Will perform 5 m walk test. The case will be discussed in detail with Dr. Dey. Recommend continuing aspirin, statin, beta-eliud therapy. Increase activity as tolerated. More recommendations to follow once testing has been completed. Thank you Dr. Castillo for this consult. I have personally seen and examined the patient, performed the documentation and the assessment and plan as written. Number of minutes spent on the visit: 30. DAVINA Aguilar
[2024-07-20 13:45] LABS: Anion Gap 5 mmol/L; Carbon Dioxide 24 mmol/L (22-30); Chloride 111 mmol/L (98-107); Glucose 125 mg/dL (74-99); Potassium 4.1 mmol/L (3.5-5.1); Sodium 140 mmol/L (137-145)
[2024-07-20 13:46] LABS: African American GFR (CKD) >90 (>60 ml/min/1.73 sqM); Blood Urea Nitrogen 11 mg/dL (9-20); Calcium 9.6 mg/dL (8.4-10.2); Non-African American GFR(CKD) >90 (>60 ml/min/1.73 sqM)
--- NOTE | 2024-07-20 14:01 | P.CRDCN ---
History of Present Illness Consult date: 07/20/24 ( ) Reason for Consult (text): NSTEMI History of present illness: This is a 64-year-old male with no previous cardiac history and does not follow with a lab tech. Patient has a past medical history of hypertension hyperlipidemia. He states he developed chest pain and soreness in the left arm which he never had before. It started during the night it went away initially and then came back. No shortness of breath, no sweats, no dizziness. No palpitations. He states he is normally very active he does not have any symptom s of chest pain or dyspnea on exertion. He has no pain at the time of this evaluation. He denies any lower extremity edema no fever no cough no wheezing. He does have a history of smoking but quit many years ago. Blood pressure 127/84, heart rate 54, pulse ox 97% on room air. EKG: Sinus rhythm, 51 bpm, no acute ST-T wave changes. Chest x-ray: No consolidation Laboratory studies: CBC unremarkable. Potassium 4.1, creatinine 0.87. Troponins 2.53, 1.13, 0.386.Triglycerides 66, cholesterol 161, LDL 96, HDL 51 Home cardiac medications: Amlodipine/benazepril 10-40 mg 1 at bedtime, aspirin 81 mg daily, labetalol 300 mg every 12 hours, pravastatin 40 mg daily. Review Of Systems: At the time of my exam: CONSTITUTIONAL: Denies fever or chills. HEENT: Denies blurred vision, vision changes, or eye pain. Denies hemoptysis CARDIOVASCULAR: Denies chest pain. Denies orthopnea. Denies PND. Denies palpitations RESPIRATORY: Denies shortness of breath. GASTROINTESTINAL: Denies abdominal pain. Denies nausea or vomiting. HEMATOLOGIC: Denies bleeding disorders. GENITOURINARY: Denies any blood in urine. SKIN: Denies puritis. Denies rash. Physical examination: Gen: This is a 64-year-old male in no acute distress he had a murmur that seem VS: reviewed HEENT: Head is atraumatic, normocephalic. Pupils equal, round. Sclerae is anicteric. NECK: Supple. No JVD. LUNGS: Clear to auscultation. No wheezes or rhonchi. No intercostal retractions. HEART: Regular rate and rhythm. 2/6 holosystolic murmur, 2/6 systolic ejection murmur. ABDOMEN: Soft No tenderness. EXTREMITIES: No pedal edema. No calf tenderness. NEUROLOGICAL: Patient is awake, alert and oriented x3. Assessment: Non-ST elevated myocardial infarction Hypertension Hyperlipidemia Plan: Start patient on aspirin 81 mg daily, atorvastatin 80 mg at bedtime, resume labetalol 300 mg every 12 hours, lisinopril 5 mg twice daily Continue heparin drip Schedule patient for cardiac catheterization today with Dr. Castillo Obtain 2-D echocardiogram and Doppler study to assess cardiac structure and function Further recommendations to follow based upon clinical course Thank you kindly for this consultation. Nurse practitioner note has been reviewed, I agree with documented findings and plan of care. Patient was seen and examined. Past Medical History Past Medical History: Hyperlipidemia, Hypertension Additional Past Medical History / Comment(s): prostate ca-radiation tx History of Any Multi-Drug Resistant Organisms: None Reported Past Surgical History: Prostate Surgery, Tonsillectomy Past Psychological History: No Psychological Hx Reported Smoking Status: Former smoker Past Alcohol Use History: Daily Past Drug Use History: None Reported - Past Family History Father Additional Family Medical History / Comment(s): prostate cancer in uncle Medications and Allergies Home Medications Medication Instructions Recorded Confirmed Type Aspirin 81 mg PO DAILY 03/06/24 07/20/24 History Labetalol HCl 300 mg PO Q12H 03/06/24 07/20/24 History Pravastatin Sodium [Pravachol] 40 mg PO DAILY 03/06/24 07/20/24 History amLODIPine BESYLATE/BENAZEPRIL 1 cap PO HS 03/06/24 07/20/24 History [amLODIPine BESYLATE/BENAZEPRIL 10-40 mg] Allergies Allergy/AdvReac Type Severity Reaction Status Date / Time No Known Allergies Allergy Verified 07/20/24 07:24 Physical Exam Vitals: Vital Signs Temp Pulse Resp BP Pulse Ox 07/20/24 07:50 99.1 F 54 L 16 127/84 97 07/20/24 05:08 98.0 F 07/20/24 04:00 49 L 16 125/74 95 07/20/24 02:00 52 L 18 147/83 96 07/20/24 00:23 49 L 18 153/80 96 07/20/24 00:20 50 L 18 153/80 97 07/20/24 00:10 47 L 16 98 07/19/24 23:58 50 L 22 116/62 96 Intake and Output 07/19/24 07/20/24 07/20/24 22:59 06:59 14:59 Intake Total 56.316 Balance 56.316 Intake: Intake, IV Titration 56.316 Amount Heparin Sod,Pork in 0.45% 56.316 NaCl 25,000 unit In 0.45 % NaCl 1 250ml.bag @ 11.6 UNITS/KG/HR 9.997 mls/hr IV .Q24H [facility] Rx#: [id number] Other: Weight 86.183 kg Results 07/20/24 13:04 07/19/24 22:14 Cardiac Enzymes 07/19/24 07/19/24 07/20/24 Range/Units 22:14 22:14 00:09 AST 38 (17-59) U/L Troponin I 0.386 H* 1.130 H* (0.000-0.034) ng/mL 07/20/24 Range/Units 04:08 AST (17-59) U/L Troponin I 2.530 H* (0.000-0.034) ng/mL Coagulation 07/19/24 07/20/24 Range/Units 22:14 04:12 PT 10.1 (10.0-12.5) sec APTT 25.6 39.3 H (22.0-30.0) sec CBC 07/19/24 Range/Units 22:14 WBC 6.4 (3.8-10.6) k/uL RBC 4.53 (4.30-5.90) m/uL Hgb 13.4 (13.0-17.5) gm/dL Hct 41.5 (39.0-53.0) % Plt Count 314 (150-450) k/uL Comprehensive Metabolic Panel 07/19/24 Range/Units 22:14 Sodium 137 (137-145) mmol/L Potassium 4.6 (3.5-5.1) mmol/L Chloride 110 H (98-107) mmol/L Carbon Dioxide 22 (22-30) mmol/L BUN 14 (9-20) mg/dL Creatinine 0.85 (0.66-1.25) mg/dL Glucose 117 H (74-99) mg/dL Calcium 9.7 (8.4-10.2) mg/dL AST 38 (17-59) U/L ALT 21 (4-49) U/L Alkaline Phosphatase 49 (38-126) U/L Total Protein 6.8 (6.3-8.2) g/dL Albumin 4.2 (3.5-5.0) g/dL Current Medications Generic Name Dose Route Start Last Admin Trade Name Freq PRN Reason Stop Dose Admin Acetaminophen 650 mg 07/20/24 01:03 Acetaminophen Tab 325 Mg Tab PO Q6HR PRN Fever and/ or Pain Aspirin 325 mg 07/21/24 09:00 Aspirin 325 Mg Tab PO DAILY [facility] Aspirin 81 mg 07/20/24 09:00 07/20/24 07:53 Aspirin 81 Mg PO 81 mg DAILY [facility] Administration Atorvastatin Calcium 80 mg 07/20/24 21:00 Atorvastatin 80 Mg Tab PO HS [facility] Heparin Sodium/Sodium Chloride 250 mls @ 9.997 mls/hr 07/20/24 00:15 07/20/24 06:05 25,000 unit/ Sodium Chloride IV 13.6 units/kg/hr .Q24H KRYS 11.721 mls/hr Titration Protocol 11.6 UNITS/KG/HR Nitroglycerin 0.4 mg 07/20/24 00:10 Nitroglycerin Sl Tabs 0.4 Mg Tab SUBLINGUAL Q5M PRN Chest Pain Intake and Output 07/19/24 07/20/24 07/20/24 22:59 06:59 14:59 Intake Total 56.316 Balance 56.316 Intake: Intake, IV Titration 56.316 Amount Heparin Sod,Pork in 0.45% 56.316 NaCl 25,000 unit In 0.45 % NaCl 1 250ml.bag @ 11.6 UNITS/KG/HR 9.997 mls/hr IV .Q24H [facility] [place] Rx#: [id number] Other: Weight 86.183 kg 07/19/24 22:14 07/19/24 22:14
--- NOTE | 2024-07-20 14:45 | US ---
EXAMINATION TYPE: Pre-Operative Non-Invasive Evaluation of the hand for Potential Radial Artery Mary Ellen wong, Measurements only DATE OF EXAM: 07/20/2024 2:36 PM Exam done portable CLINICAL INDICATION: Male, 64 years old with history of measurements only; Pre op cardiac surgery SIDE PERFORMED: Left TECHNIQUE: Radial artery is measured utilizing real time linear array sonography. Dominant hand: Right Duplex Findings: Radial Artery: Color flow seen Measurements in mm, transverse view: Left Radial: Proximal: 2.8 x 3.0 mm Mid: 2.7 x 2.6 mm Distal: 2.1 x 2.5 mm IMPRESSION: 1. Left Radial artery measurements listed above. 2. Performing surgeon to determine viability as conduit. [facility], , 07/20/2024 2:42 PM
--- NOTE | 2024-07-20 14:52 | US ---
EXAMINATION TYPE: US vein mapping BILAT DATE OF EXAM: 07/20/2024 2:36 PM Exam done portable COMPARISON: NONE CLINICAL INDICATION: Male, 64 years old with history of preop cardiac surgery; Pre op cardiac surgery SIDE PERFORMED: Bilateral TECHNIQUE: Lower extremity saphenous vein is examined and measured utilizing real time linear array sonography. DUPLEX FINDINGS: Greater Saphenous: Color flow seen Lesser Saphenous: Color flow seen Measurements in mm: Right Greater Saphenous: Groin: 9.7 x 9.6 mm High Thigh: 7.4 x 7.7 mm Mid Thigh: 6.8 x 7.8 mm Above Knee: 6.3 x 6.6 mm Knee: 6.1 x 6.7 mm Below Knee: 6.3 x 6.2 mm Mid Calf: 4.6 x 5.3 mm At Ankle: 3.7 x 4.0 mm Left Greater Saphenous: Groin: 5.3 x 5.3 mm High Thigh: 3.5 x 3.5 mm Mid Thigh: 3.2 x 3.1 mm Above Knee: 2.6 x 3.1 mm Knee: 3.5 x 4.0 mm Below Knee: 2.5 x 3.0 mm Mid Calf: 1.5 x 1.6 mm At Ankle: 2.8 x 3.1 mm IMPRESSION: 1. Bilateral GSV measurements listed above. 2. Performing surgeon to determine viability as conduit. [facility], , 07/20/2024 2:49 PM
--- NOTE | 2024-07-20 15:00 | CT ---
EXAMINATION TYPE: CT chest wo con DATE OF EXAM: 07/20/2024 COMPARISON: None HISTORY: eval aorta for sx CT DLP: 412.[address] of the chest was performed with lung and mediastinal window settings submitted. The la ck of contrast limits evaluation of the vascular, mediastinal and parenchymal structures including th e upper abdomen. LUNGS: The lungs are clear and free of infiltrate. No atelectasis. There are a few scattered pulmonar y nodules noted bilaterally largest at the left lung base measuring 6.8 mm. Follow-up CT in 6 months is recommended of the chest. No pleural effusion. No CT evidence of interstitial lung disease. MEDIASTINUM/ABBY: Thoracic aorta is of normal caliber with limited evaluation given lack of contrast . Ascending thoracic aorta measures 3.8 cm without significant atheromatous change. Mild atheromatou s changes noted at the distal aortic arch. Ascending thoracic aorta is normal caliber with scattered calcific plaque. Small hiatal hernia seen. The heart is not enlarged. No evidence for mediastinal ma ss. No lymph nodes greater than 1cm. UPPER ABDOMEN: No significant abnormality is seen. OTHER: No significant other abnormality. IMPRESSION: 1. Normal caliber ascending thoracic aorta without significant calcific atheromatous change seen. 2. Scattered pulmonary nodules see above. [facility], , 07/20/2024 2:58 PM
--- NOTE | 2024-07-20 15:20 | US ---
EXAMINATION TYPE: US arterial LE single level DATE OF EXAM: 07/20/2024 3:11 PM CLINICAL INDICATION: Male, 64 years old with history of Ankle Brachial Index (ROBERT); pre open heart Doppler Waveforms: Right: Multiphasic Left: Multiphasic Right Brachial Pressure: radial cath site Left Brachial Pressure: 144 Ankle-Brachial Indices: Right: 1.3 Left: 1.3 (Vessel hardening > 1.4; Normal 0.9 - 1.4, Moderate 0.7 - 0.9, Severe 0.5-0.7) IMPRESSION: Normal bilateral ROBERT. [facility], , 07/20/2024 3:18 PM
[2024-07-20] MEDS: NITROGLYCERIN OINT 1 INCH/GM PACKET TOPICAL SCH (17:50)
[2024-07-20] MEDS: ATORVASTATIN 80 MG TAB PO SCH (19:54)
[2024-07-20] MEDS: ACETAMINOPHEN TAB 325 MG TAB PO PRN (19:54)
[2024-07-20] MEDS: hydrALAZINE HCL 25 MG TAB PO SCH (19:54)
--- NOTE | 2024-07-20 20:04 | CA ---
Transthoracic Echo Report Name: Anibal Kamara Age: 64 Gender: M : 1960 Exam Date: 07/20/2024 16:22 Exam Location: [place] Echo Ht (in): 71 Wt (lb): 190 Ordering Physician: Basim Peacock MD Attending/Referring Phys: [id number], Ayush [employer] Consultant Denice Presley RDCS Procedure CPT: Indications: nstemi Cardiac Hx: Technical Quality: Fair Contrast 1: Total Dose (mL): Contrast 2: Total Dose (mL): MEASUREMENTS (Male / Female) Normal Values 2D ECHO LV Diastolic Diameter PLAX 5.5 cm 4.2 - 5.9 / 3.9 - 5.3 cm LV Systolic Diameter PLAX 2.5 cm IVS Diastolic Thickness 1.3 cm 0.6 - 1.0 / 0.6 - 0.9 cm LVPW Diastolic Thickness 0.9 cm 0.6 - 1.0 / 0.6 - 0.9 cm LV Relative Wall Thickness 0.4 RV Internal Dim ED PLAX 3.8 cm LVOT Diameter 2.2 cm LA Volume 59.0 cm??? 18 - 58 / 22 - 52 cm??? LA Volume Index 28.2 cm???/m??? 16 - 28 cm???/m??? M-MODE Aortic Root Diameter MM 2.8 cm LA Systolic Diameter MM 4.5 cm LA Ao Ratio MM 1.6 AV Cusp Separation MM 1.6 cm DOPPLER AV Peak Velocity 269.7 cm/s AV Peak Gradient 29.1 mmHg AV Mean Velocity 142.4 cm/s AV Mean Gradient 12.5 mmHg AV Velocity Time Integral 52.5 cm AI Peak Velocity 479.1 cm/s AI Peak Gradient 91.8 mmHg AI Pressure Half Time 504.0 ms LVOT Peak Velocity 125.0 cm/s LVOT Peak Gradient 6.2 mmHg LVOT Velocity Time Integral 28.2 cm LVOT Stroke Volume 107.2 cm??? LVOT Stroke Volume Index 51.9 ml/m??? LVOT Cardiac Index 2973.8 cm???/min???m??? AV Area Cont Eq vti 2.0 cm??? AV Area Cont Eq pk 1.8 cm??? MV Area PHT 3.6 cm??? Mitral E Point Velocity 123.3 cm/s Mitral A Point Velocity 84.7 cm/s Mitral E to A Ratio 1.5 MV Deceleration Time 209.3 ms MV E' Velocity 8.9 cm/s Mitral E to MV E' Ratio 13.8 TR Peak Velocity 232.9 cm/s TR Peak Gradient 21.7 mmHg Right Ventricular Systolic Press 24.7 mmHg FINDINGS Left Ventricle Mildly increased left ventricular wall thickness. Left ventricular cavity size normal. Normal left ventricular systolic function with no obvious regional wall motion abnormalities. Grade 1 diastolic dysfunction. Left ventricular ejection fraction is estimated at 55-60 %. Right Ventricle Mild right ventricular dilatation. Right ventricular systolic pressure within normal limits. Right Atrium Mild right atrial dilatation. Left Atrium Mildly increased left atrial volume. Mildly increased left atrial area. Mitral Valve Structurally normal mitral valve. No evidence for mitral valve prolapse. No mitral stenosis. Trace mitral regurgitation. Aortic Valve Trileaflet aortic valve. Mild aortic stenosis with a peak gradient of 29 mmHg and a mean gradient of 13 mmHg. Mild aortic regurgitation. Tricuspid Valve Structurally normal tricuspid valve. Mild tricuspid regurgitation. Pulmonic Valve Structurally normal pulmonic valve. Mild pulmonic regurgitation. Pericardium No pericardial effusion. Aorta Normal size aortic root and proximal ascending aorta. CONCLUSIONS Diagnosis chest pain non-Q wave myocardial infarction Preserved LV size and function Biatrial enlargement Mild aortic stenosis Previewed by: Dr. Addi Hughes MD (Electronically Signed) Final Date: 20 July 2024 20:03
[2024-07-20] MEDS ORDERED: lisinopriL 5 MG TAB PO SCH (21:00)
[2024-07-20] MEDS: MUPIROCIN 2% OINT 22 GM TUBE NASAL SCH (21:09)
[2024-07-21 01:57] LABS: Partial Thromboplastin Time 33.4 sec (22.0-30.0); Prothrombin Time 10.7 sec (10.0-12.5)
[2024-07-21] MEDS ORDERED: HEPARIN SODIUM,PORCINE 10,000 UNIT in SODIUM CHLORIDE 0.9% 1,000 ML IRRIGATION PRN (07:00)
[2024-07-21] MEDS ORDERED: HEPARIN SODIUM,PORCINE (1 ML) 2,500 UNIT in SODIUM CHLORIDE 0.9% 250 ML IRRIGATION PRN (07:00)
[2024-07-21 08:31] LABS: Basophils % (A) 0 %; Eosinophils # (A) 0.2 k/uL (0-0.7); Eosinophils % (A) 3 %; Lymphocytes # (A) 1.4 k/uL (1.0-4.8); Lymphocytes % (A) 20 %; MCH 29.5 pg (25.0-35.0); MCHC 31.8 g/dL (31.0-37.0); MCV 92.7 fL (80.0-100.0); Mean Platelet Volume 7.2; Monocytes # (A) 0.3 k/uL (0-1.0); Monocytes % (A) 4 %; Neutrophils % (A) 72 %; Platelet Count 289 k/uL (150-450); RBC 4.42 m/uL (4.30-5.90); RDW 13.3 % (11.5-15.5); WBC 6.9 k/uL (3.8-10.6)
[2024-07-21] MEDS ORDERED: ASPIRIN 325 MG TAB PO SCH (09:00)
--- NOTE | 2024-07-21 13:19 | P.PN ---
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 Patient has a past medical history of hypertension hyperlipidemia. He states he developed chest pain and soreness in the left arm which he never had before. It started during the night it went away initially and then came back. No shortness of breath, no sweats, no dizziness. No palpit ations. He states he is normally very active he does not have any symptoms of chest pain or dyspnea on exertion. He has no pain at the time of this evaluation. He denies any lower extremity edema no fever no cough no wheezing. He does have a history of smoking but quit many years ago. Blood pressure 127/84, heart rate 54, pulse ox 97% on room air. EKG: Sinus rhythm, 51 bpm, no acute ST-T wave changes. Chest x-ray: No consolidation Laboratory studies: CBC unremarkable. Potassium 4.1, creatinine 0.87. Troponins 2.53, 1.13, 0.386.Triglycerides 66, cholesterol 161, LDL 96, HDL 51 Home cardiac medications: Amlodipine/benazepril 10-40 mg 1 at bedtime, aspirin 81 mg daily, labetalol 300 mg every 12 hours, pravastatin 40 mg daily. 07/21 Patient is seen today in follow-up. Yesterday he underwent cardiac catheterization which revealed severe triple-vessel coronary artery disease with slow flow in the PLV that could be the culprit lesion. Codominant system, elevated LVEDP. Patient was seen by cardiothoracic surgery with plan for CABG on Wednesday. Patient has been maintained on heparin drip. Medication changes made yesterday by cardiothoracic surgery and relationship to amlodipine, lisinopril were both discontinued and patient started on hydralazine. Blood p ressure 169/81, heart rate 63, pulse ox 96% on room air. Repeat CBC unremarkable. Physical examination: Gen: This is a 64-year-old male in no acute distress VS: reviewed HEENT: Head is atraumatic, normocephalic. Pupils equal, round. Sclerae is anicteric. NECK: Supple. No JVD. LUNGS: Clear to auscultation. No wheezes or rhonchi. No intercostal retractions. HEART: Regular rate and rhythm. 2/6 holosystolic murmur, 2/6 systolic ejection murmur. ABDOMEN: Soft No tenderness. EXTREMITIES: No pedal edema. No calf tenderness. NEUROLOGICAL: Patient is awake, alert and oriented x3. Assessment: Non-ST elevated myocardial infarction with triple-vessel disease found on cardiac cath Hypertension Hyperlipidemia Plan: Continue patient on aspirin 81 mg daily, atorvastatin 80 mg at bedtime, hydra lazine 25 mg twice daily, labetalol 300 mg every 12 hours, Nitropaste every 8 hours Continue heparin drip Patient is scheduled for CABG on Wednesday Further recommendations to follow based upon clinical course Nurse practitioner note has been reviewed, I agree with documented findings and plan of care. Patient was seen and examined. Objective - Vital Signs Vital signs: Vital Signs Temp 98.6 F 07/21/24 00:23 Pulse 79 07/21/24 00:23 Resp 14 07/21/24 00:23 BP 120/66 07/21/24 00:23 Pulse Ox 96 07/21/24 07:41 FiO2 21 07/21/24 07:41 Intake & Output 07/20/24 07/21/24 07/21/24 18:59 06:59 18:59 Intake Total 150 89.980 442.628 Balance 150 89.980 442.628 Weight 86.183 kg 89.1 kg Intake: IV 75 Intake, IV Titration 75 89.980 82.628 Amount Heparin Sod,Pork in 0.45% 89.980 82.628 NaCl 25,000 unit In 0.45 % NaCl 1 250ml.bag @ 11. 603 UNITS/KG/HR 10 mls/hr IV .Q24H KRYS Rx#: [id number] Sodium Chloride 0.9% 1, 75 000 ml @ 75 mls/hr IV . [id number] KRYS Rx#:[id number] Oral 360 Other: Voiding Method Toilet # Voids 2 - Labs CBC & Chem 7: 07/21/24 07:49 07/20/24 13:17 Labs: Abnormal Lab Results - Last 24 Hours (Table) 07/20/24 07/20/24 07/20/24 Range/Units 09:46 13:04 13:17 APTT 52.0 H 67.0 H (22.0-30.0) sec Chloride 111 H (98-107) mmol/L Glucose 125 H (74-99) mg/dL Troponin I (0.000-0.034) ng/mL 07/21/24 07/21/24 07/21/24 Range/Units 01:17 07:49 07:49 APTT 33.4 H 39.5 H (22.0-30.0) sec Chloride (98-107) mmol/L Glucose (74-99) mg/dL Troponin I 3.660 H* (0.000-0.034) ng/mL
--- NOTE | 2024-07-21 14:20 | P.PN ---
Subjective Progress Note Date: 07/21/24 64-year-old male with a PMH of prostate cancer currently undergoing radiation therapy, hypertension, hyperlipidemia, and remote history of tobacco abuse who presented to the emergency room with complaints of chest and arm discomfort. In the emergency room and EKG revealed sinus rhythm at 51 bpm with inferior lead Q waves with no additional ST/T wave changes. Chest x-ray revealed no abnormalities. Laboratory evaluation was remarkable for troponin of 0.386 with a WBC count 6.4, hemoglobin 13.4, and sodium 137. He was started on a heparin infusion and admitted for Cardiology evaluation. Troponin trended 1.13, 2.53. He underwent cardiac cath which showed proximal LAD stenosis 90%, first obtuse marginal artery stenosis 70%, PLV subtotally occluded, proximal RCA stenosis 70%, and mid RCA stenosis 60 to 70%. Cardiothoracic surgery consulted. 07/21 Patient was seen and examined. No chest pain. CBC unremarkable. Troponin 3.660. Echo shows EF 55-60% G1DD and mild . CT chest shows pulmonary nodules. Lipid panel T. Chol 161, LDL 96.6. A1c 5.7. APTT today 33.4. Maintained on Heparin drip at 14.6 units/kg/hr. General: non toxic, no distress, appears at stated age Derm: warm, dry Head: atraumatic, normocephalic, symmetric Eyes: EOMI, no lid lag, anicteric sclera Mouth: no lip lesion, mucus membranes moist Cardiovascular: S1S2 reg, no murmur Lungs: Clear to auscultation bilaterally, no rhonchi, no rales , no accessory muscle use Ext: no gross muscle atrophy, no edema, no contractures Neuro: no focal neuro deficits Psych: Alert, oriented, appropriate affect Based on my assessment of this patient, this patient meets a high complexity level of care. NSTEMI: ASA 81 mg PO QD. Lipitor 80 mg PO QHS. Continue Heparin drip. CT surgery evaluating for possible CABG on Wednesday. Telemetry monitoring. Cardiology on board. Hypertension: Labetalol 300 mg PO BID. Hydralazine 25 mg PO BID. Dyslipidemia: Lipitor as above. CODE STATUS: FULL CODE. DVT Prophylaxis: Heparin drip GI Prophylaxis: Designated medical POA if patient is not able to make medical decisions for themselves: Dispo: Pending clinical course. I have reviewed the following customer sales consultant notes: Cardiology, CT surgery, cath note. I have reviewed the results of the following tests: Echo. CT chest. Lipid panel. Coag panel. I have ordered the following tests: I have discussed the care of this patient with the following independent historian: . I have independently interpreted the following test below: I have discussed the management of this patient with the following physician: Objective - Vital Signs Vital signs: Vital Signs Temp 98.6 F 07/21/24 00:23 Pulse 79 07/21/24 00:23 Resp 14 07/21/24 00:23 BP 120/66 07/21/24 00:23 Pulse Ox 96 07/21/24 07:41 FiO2 21 07/21/24 07:41 Intake & Output 07/20/24 07/21/24 07/21/24 18:59 06:59 18:59 Intake Total 150 89.980 Balance 150 89.980 Weight 86.183 kg 89.1 kg Intake: IV 75 Intake, IV Titration 75 89.980 Amount Heparin Sod,Pork in 0.45% 89.980 NaCl 25,000 unit In 0.45 % NaCl 1 250ml.bag @ 11. 603 UNITS/KG/HR 10 mls/hr IV .Q24H KRYS Rx#: [id number] Sodium Chloride 0.9% 1, 75 000 ml @ 75 mls/hr IV . [id number] KRYS Rx#:[id number] Other: Voiding Method Toilet # Voids 2 - Labs CBC & Chem 7: 07/21/24 07:49 07/20/24 13:17 Labs: Abnormal Lab Results - Last 24 Hours (Table) 07/20/24 07/20/24 07/20/24 Range/Units 09:46 13:04 13:17 APTT 52.0 H 67.0 H (22.0-30.0) sec Chloride 111 H (98-107) mmol/L Glucose 125 H (74-99) mg/dL 07/21/24 Range/Units 01:17 APTT 33.4 H (22.0-30.0) sec Chloride (98-107) mmol/L Glucose (74-99) mg/dL
[2024-07-21] MEDS ORDERED: LIDOCAINE 1% (10MG/ML) FOR IV START INTRADERMA PRN (14:37)
[2024-07-21] MEDS: LACTATED RINGERS 1,000 ML IV SCH (14:52)
--- NOTE | 2024-07-21 14:55 | US ---
EXAMINATION TYPE: US carotid duplex BILAT DATE OF EXAM: 07/21/2024 COMPARISON: NONE CLINICAL INDICATION: Male, 64 years old with history of Pre op cardiac surgery; Open heart TECHNIQUE: Carotid duplex ultrasound examination. Indirect Doppler criteria was utilized. FINDINGS: EXAM MEASUREMENTS: RIGHT: Peak Systolic Velocity (PSV) cm/sec ----- Right CCA: 117 ----- Right ICA: 248 ----- Right ECA: 190 ICA/CCA ratio: 2.1 RIGHT: End Diastole cm/sec ----- Right CCA: 15.6 ----- Right ICA: 37.7 ----- Right ECA: 0 LEFT: Peak Systolic Velocity (PSV) cm/sec ----- Left CCA: 102 ----- Left ICA: 205 ----- Left ECA: 275 ICA/CCA ratio: 2.0 LEFT: End Diastole cm/sec ----- Left CCA: 15.2 ----- Left ICA: 18.6 ----- Left ECA: 0 VERTEBRALS (direction of flow): Right Vertebral: Antegrade Left Vertebral: Antegrade Rhythm: Normal SCENE SHIFTER NOTES: Bilateral plaque visualized. No significant stenosis seen IMPRESSION: Bilateral plaque with findings suggestive of a 50-69% stenosis bilaterally. Consider CTA correlation. Criteria for Assigning % of Stenosis / Diameter reduction (Estimation based on the indirect measurements of the internal carotid artery velocities (ICA PSV). 1. Normal (no stenosis)=ICA PSV < 125 cm/s: ratio < 2.0: ICA EDV<40 cm/s. 2. Less than 50% stenosis=ICA PSV < 125 cm/s: ratio < 2.0: ICA EDV<40 cm/s. 3. 50 to 69% stenosis=ICA PSV of 125 to 230 cm/s: ration 2.0 ? 4.0: ICA EDV 40-100 cm/s. 4. Greater than 70% stenosis to near occlusion= ICA PSV > 230 cm/s: ratio > 4.0: ICA EDV > 100 cm/s. 5. Near occlusion= ICA PSV velocities may be low or undetectable: variable ratio and ICA EDV. 6. Total occlusion=unable to detect flow. [facility], , 07/21/2024 2:52 PM
--- NOTE | 2024-07-21 15:46 | P.PN ---
Subjective Progress Note Date: 07/21/24 Principal diagnosis: Coronary artery disease, non-STEMI this admission. Past medical history of hypertension, hyperlipidemia, prostate cancer in the process of getting radiation therapy, previous tobacco dependence, and daily wine usage. The patient was seen and examined in follow-up today July 21, 2024 at his bedside on the third floor cardiac stepdown unit. Patient is currently sitting up to the bedside edge, is awake, alert, oriented x 3 and is in no acute apparen t distress. He denies any complaints of pain or shortness of breath at this time. Denies any further symptoms of chest pressure at this time. Heparin drip is infusing per protocol. Oxygen saturations are 96% on room air and he is achieving 3500 mL on his incentive spirometry with encouragement. Remote telemetry showing normal sinus rhythm heart rate 65 bpm. Preoperative testing and preoperative teaching is in progress. A 5 m walk test was completed with the patient, time 1: 3.40 Seconds, time 2: 3.88 Seconds, time 3: 3.58 Seconds. The patient tolerated the 5 m walk test well without complaints. A clinical frailty score was calculated yesterday which equaled 2. An STS risk or has been also calculated and discussed with the patient. The patient is scheduled for myocardial vascularization surgery on July 24 to be performed by Dr. Briggs with left internal mammary artery, endoscopic vein harvest, endoscopic left radial artery harvest, intraoperative transesophageal echocardiogram and exclusion left atrial appendage. Objective - Vital Signs Vital signs: Vital Signs Temp 98.1 F 07/21/24 08:00 Pulse 54 L 07/21/24 12:00 Resp 14 07/21/24 08:00 BP 150/75 07/21/24 12:00 Pulse Ox 96 07/21/24 12:00 FiO2 21 07/21/24 07:41 Intake & Output 07/20/24 07/21/24 07/21/24 18:59 06:59 18:59 Intake Total 150 89.980 442.628 Balance 150 89.980 442.628 Weight 86.183 kg 89.1 kg Intake: IV 75 Intake, IV Titration 75 89.980 82.628 Amount Heparin Sod,Pork in 0.45% 89.980 82.628 NaCl 25,000 unit In 0.45 % NaCl 1 250ml.bag @ 11. 603 UNITS/KG/HR 10 mls/hr IV .Q24H KRYS Rx#: [id number] Sodium Chloride 0.9% 1, 75 000 ml @ 75 mls/hr IV . [id number] KRYS Rx#:[id number] Oral 360 Other: Voiding Method Toilet Toilet # Voids 2 - Exam CONSTITUTIONAL: Appears comfortable, cooperative, no apparent acute distress. HEENT: Neck is supple, no JVD, no lymphadenopathy. RESPIRATORY: Lungs sounds essentially clear throughout. Respirations are symmetrical and nonlabored. CARDIOVASCULAR: Regular rhythm and rate. S1 and S2 present, negative for S3, gallop or murmur. GASTROINTESTINAL: Abdomen soft, nontender, nondistended. Active bowel sounds present 4 quadrants. Tolerating diet. Passing flatus. No guarding or rigidity. GENITOURINARY: Continues to void. INTEGUMENTARY: Skin is warm and dry with no evidence of clubbing or cyanosis. NEUROLOGIC: Cranial nerves II through XII intact. No focal deficits. MUSKULOSKELETAL: Able to move all extremities, strength equal bilaterally. PSYCHIATRIC: Alert and oriented to person place and time, appropriate affect, intact judgment and insight. - Allied health notes Allied health notes reviewed: nursing - Labs CBC & Chem 7: 07/21/24 07:49 07/20/24 13:17 Labs: Abnormal Lab Results - Last 24 Hours (Table) 07/20/24 07/20/24 07/21/24 Range/Units 13:04 13:17 01:17 APTT 67.0 H 33.4 H (22.0-30.0) sec Chloride 111 H (98-107) mmol/L Glucose 125 H (74-99) mg/dL Troponin I (0.000-0.034) ng/mL 07/21/24 07/21/24 Range/Units 07:49 07:49 APTT 39.5 H (22.0-30.0) sec Chloride (98-107) mmol/L Glucose (74-99) mg/dL Troponin I 3.660 H* (0.000-0.034) ng/mL - Imaging and Cardiology Chest x-ray: report reviewed, image reviewed CT scan - chest: report reviewed, image reviewed Transthoracic 2D echocardiogram results reviewed. Assessment and Plan Assessment: Triple-vessel coronary artery disease Non-STEMI this admission Chest pain on admission History of hypertension Hyperlipidemia, treated, cholesterol 161, LDL 97 Previous tobacco dependence, preoperative FEV1 76% of predicted value Daily wine usage Prostate cancer, pending radiation therapy Plan: A 5 m walk test was completed with the patient, time 1: 3.40 Seconds, time 2: 3.88 Seconds, time 3: 3.58 Seconds. A clinical frailty score was calculated yesterday which equaled 2. An STS risk or has been also calculated and discussed with the patient. The patient is scheduled for myocardial vascularization surgery on Wednesday, July 24 to be performed by Dr. Briggs with left internal mammary artery, endoscopic vein harvest, endoscopic left radial artery harvest, intraoperative transesophageal echocardiogram and exclusion left atrial appendage. N.p.o. after midnight on July 24, 2024. Continue to discuss and reinforce preoperative teaching. Heparin drip management and recommendations per cardiology. Medical management and other comorbidities per internal medicine service and cardiology. More recommendations to follow based on patient's clinical course. Time with Patient: Greater than 30
--- NOTE | 2024-07-22 11:23 | P.PN ---
Subjective HISTORY OF PRESENT ILLNESS: This is a 64-year-old male with no previous cardiac history and does not follow with a environmental compliance engineer. Patient has a past medical history of hypertension hyperlipidemia. He states he developed chest pain and soreness in the left arm which he never had before. It started during the night it went away initially and then came back. No shortness of breath, no sweats, no dizziness. No palpitations. He states he is normally very active he does not have any symptoms of chest pain or dyspnea on exertion. He has no pain at the time of this evaluation. He denies any lower extremity edema no fever no cough no wheezing. He does have a history of smoking but quit many years ago. Blood pressure 127/84, heart rate 54, pulse ox 97% on room air. EKG: Sinus rhythm, 51 bpm, no acute ST-T wave changes. Chest x-ray: No consolidation Laboratory studies: CBC unremarkable. Potassium 4.1, creatinine 0.87. Troponins 2.53, 1.13, 0.386.Triglycerides 66, cholesterol 161, LDL 96, HDL 51 Home cardiac medications: Amlodipine/benazepril 10-40 mg 1 at bedtime, aspirin 81 mg daily, labetalol 300 mg every 12 hours, pravastatin 40 mg daily. 07/21 Patient is seen today in follow-up. Yesterday he underwent cardiac catheterization which revealed severe triple-vessel coronary artery disease with slow flow in the PLV that could be the culprit lesion. Codominant system, elevated LVEDP. Patient was seen by cardiothoracic surgery with plan for CABG on Wednesday. Patient has been maintained on heparin drip. Medication changes made yesterday by cardiothoracic surgery and relationship to amlodipine, shahzad nopril were both discontinued and patient started on hydralazine. Blood pressure 169/81, heart rate 63, pulse ox 96% on room air. Repeat CBC unremarkable. 07/22/2024 Patient examined this morning at the bedside. Patient's family is present. Patient currently denies chest pain or pressure. He denies shortness of breath. He is about to take a shower at the time of examination. He remains on IV heparin. Blood pressure slightly elevated with recent readings of 146/72 and 168/84. PHYSICAL EXAM: VITAL SIGNS: Reviewed. GENERAL: Well-developed in no acute distress. NECK: Supple. No JVD or thyromegaly LUNGS: Respirations even and unlabored. Lungs essentially clear to auscultation bilaterally. HEART: Regular rate and rhythm. S1 and S2 heard. Systolic murmur noted EXTREMITIES: Normal range of motion. No clubbing or cyanosis. Peripheral pulses intact. No lower extremity edema ASSESSMENT: Non-STEMI, status post cardiac catheterization revealing triple-vessel disease Hypertension Hyperlipidemia Daily alcohol use Prostate cancer Former nicotine dependence PLAN: Continue current cardiac medications Increase hydralazine to TID dosing for optimal blood pressure control Continue IV Heparin Patient is tentatively scheduled for CABG on Wednesday, August 23, 2024 Further recommendations pending patient course Nurse practitioner note has been reviewed by physician. Signing provider agrees with the documented findings, assessment, and plan of care documented by AD OPERATIONS COORDINATOR as a scribe. Objective - Vital Signs Vital signs: Vital Signs Temp 98.2 F 07/22/24 08:40 Pulse 63 07/22/24 08:40 Resp 16 07/22/24 08:40 BP 146/72 07/22/24 08:40 Pulse Ox 97 07/22/24 08:40 FiO2 21 07/21/24 07:41 Intake & Output 07/21/24 07/22/24 07/22/24 18:59 06:59 18:59 Intake Total 1212.009 360 Output Total 1700 Balance 1212.009 -1700 360 Weight 91.6 kg Intake: Intake, IV Titration 734.009 Amount Heparin Sod,Pork in 0.45% 134.009 NaCl 25,000 unit In 0.45 % NaCl 1 250ml.bag @ 11. 603 UNITS/KG/HR 10 mls/hr IV .Q24H [facility] Rx#: [id number] Sodium Chloride 0.9% 1, 600 000 ml @ 75 mls/hr IV . [id number] [facility] Rx#:[id number] Oral 478 360 Output: Urine 1700 Other: Voiding Method Toilet Toilet Toilet # Voids 1 - Labs CBC & Chem 7: 07/21/24 07:49 07/20/24 13:17 Labs: Abnormal Lab Results - Last 24 Hours (Table) 07/21/24 07/22/24 Range/Units 15:38 07:00 APTT 45.2 H 44.4 H (22.0-30.0) sec
--- NOTE | 2024-07-22 11:39 | P.PN ---
Subjective Progress Note Date: 07/22/24 64-year-old male with a PMH of prostate cancer currently undergoing radiation therapy, hypertension, hyperlipidemia, and remote history of tobacco abuse who presented to the emergency room with complaints of chest and arm discomfort. In the emergency room and EKG revealed sinus rhythm at 51 bpm with inferior lead Q waves with no additional ST/T wave changes. Chest x-ray revealed no abnormalities. Laboratory evaluation was remarkable for troponin of 0.386 with a WBC count 6.4, hemoglobin 13.4, and sodium 137. He was started on a heparin infusion and admitted for Cardiology evaluation. Troponin trended 1.13, 2.53. He underwent cardiac cath which showed proximal LAD stenosis 90%, first obtuse marginal artery stenosis 70%, PLV subtotally occluded, proximal RCA stenosis 70%, and mid RCA stenosis 60 to 70%. Cardiothoracic surgery consulted, workup underway for CABG planned on Wednesday. 07/22 Patient was seen and examined. No chest pain. APTT today 44.4. Maintained on Heparin drip at 14.6 units/kg/hr. General: non toxic, no distress, appears at stated age Derm: warm, dry Head: atraumatic, normocephalic, symmetric Eyes: EOMI, no lid lag, anicteric sclera Mouth: no lip lesion, mucus membranes moist Cardiovascular: S1S2 reg, no murmur Lungs: Clear to auscultation bilaterally, no rhonchi, no rales , no accessory muscle use Ext: no gross muscle atrophy, no edema, no contractures Neuro: no focal neuro deficits Psych: Alert, oriented, appropriate affect Based on my assessment of this patient, this patient meets a high complexity level of care. NSTEMI: ASA 81 mg PO QD. Lipitor 80 mg PO QHS. NitroBid TOP Q8H. Continue Heparin drip. CT surgery evaluating for CABG on Wednesday. Telemetry monitoring. Cardiology on board. Pulmonary nodules: Repeat CT chest in 6 months. Hypertension: Labetalol 300 mg PO BID. Hydralazine 25 mg PO BID. Dyslipidemia: Lipitor as above. CODE STATUS: FULL CODE. DVT Prophylaxis: Heparin drip GI Prophylaxis: Designated medical POA if patient is not able to make medical decisions for themselves: Dispo: Pending clinical course. I have reviewed the following application development consultant notes: Cardiology, CT surgery. I have reviewed the results of the following tests: APTT. I have ordered the following tests: Monitor coag panel while on Heparin drip. I have discussed the care of this patient with the following independent historian: . RN I have independently interpreted the following test below: I have discussed the management of this patient with the following physician: Objective - Vital Signs Vital signs: Vital Signs Temp 98.1 F 07/22/24 03:52 Pulse 63 07/22/24 03:52 Resp 16 07/22/24 03:52 BP 168/84 07/22/24 03:52 Pulse Ox 96 07/22/24 03:52 FiO2 21 07/21/24 07:41 Intake & Output 07/21/24 07/22/24 07/22/24 18:59 06:59 18:59 Intake Total 1212.009 Output Total 1700 Balance 1212.009 -1700 Weight 91.6 kg Intake: Intake, IV Titration 734.009 Amount Heparin Sod,Pork in 0.45% 134.009 NaCl 25,000 unit In 0.45 % NaCl 1 250ml.bag @ 11. 603 UNITS/KG/HR 10 mls/hr IV .Q24H [facility] Rx#: [id number] Sodium Chloride 0.9% 1, 600 000 ml @ 75 mls/hr IV . [id number] [facility] Rx#:[id number] Oral 478 Output: Urine 1700 Other: Voiding Method Toilet Toilet # Voids 1 - Labs CBC & Chem 7: 07/21/24 07:49 07/20/24 13:17 Labs: Abnormal Lab Results - Last 24 Hours (Table) 07/21/24 07/21/24 07/21/24 Range/Units 07:49 07:49 15:38 APTT 39.5 H 45.2 H (22.0-30.0) sec Troponin I 3.660 H* (0.000-0.034) ng/mL 07/22/24 Range/Units 07:00 APTT 44.4 H (22.0-30.0) sec Troponin I (0.000-0.034) ng/mL
--- NOTE | 2024-07-22 15:15 | P.PN ---
Subjective Progress Note Date: 07/22/24 Principal diagnosis: Coronary artery disease, non-STEMI this admission. Past medical history of hypertension, hyperlipidemia, prostate cancer in the process of getting radiation therapy, previous tobacco dependence, and daily wine usage. The patient was seen and examined at his bedside today July 22, 2024. He is currently sitting up to the bedside edge, is awake, alert, oriented x 3 and is in no acute apparent distress. Dr. Briggs met with the patient today and his present at his bedside. Dr. Briggs discussed risks and benefits of surgery including the STS risk score. He is scheduled for myocardial vascularization surgery with left internal mammary artery, endoscopic vein harvest and left endoscopic radial artery harvest on Wednesday, July 24, 2024 to be completed by Dr. Briggs. Patient's questions were answered by Dr. Briggs. Objective - Vital Signs Vital signs: Vital Signs Temp 98.2 F 07/22/24 08:40 Pulse 63 07/22/24 08:40 Resp 16 07/22/24 08:40 BP 146/72 07/22/24 08:40 Pulse Ox 97 07/22/24 08:40 FiO2 21 07/21/24 07:41 Intake & Output 07/21/24 07/22/24 07/22/24 18:59 06:59 18:59 Intake Total 1212.009 360 Output Total 1700 Balance 1212.009 -1700 360 Weight 91.6 kg Intake: Intake, IV Titration 734.009 Amount Heparin Sod,Pork in 0.45% 134.009 NaCl 25,000 unit In 0.45 % NaCl 1 250ml.bag @ 11. 603 UNITS/KG/HR 10 mls/hr IV .Q24H [facility] Rx#: [id number] Sodium Chloride 0.9% 1, 600 000 ml @ 75 mls/hr IV . [id number] [facility] Rx#:[id number] Oral 478 360 Output: Urine 1700 Other: Voiding Method Toilet Toilet Toilet # Voids 1 - Exam CONSTITUTIONAL: Appears comfortable, cooperative, no apparent acute distress. HEENT: Neck is supple, no JVD, no lymphadenopathy. RESPIRATORY: Lungs sounds essentially clear throughout. Respirations are symmetrical and nonlabored. CARDIOVASCULAR: Regular rhythm and rate. S1 and S2 present, negative for S3, gallop or murmur. GASTROINTESTINAL: Abdomen soft, nontender, nondistended. Active bowel sounds present 4 quadrants. Tolerating diet. Passing flatus. No guarding or rigidity. GENITOURINARY: Continues to void. INTEGUMENTARY: Skin is warm and dry with no evidence of clubbing or cyanosis. NEUROLOGIC: Cranial nerves II through XII intact. No focal deficits. MUSKULOSKELETAL: Able to move all extremities, strength equal bilaterally. PSYCHIATRIC: Alert and oriented to person place and time, appropriate affect, intact judgment and insight. - Allied health notes Allied health notes reviewed: nursing - Labs CBC & Chem 7: 07/21/24 07:49 07/20/24 13:17 Labs: Abnormal Lab Results - Last 24 Hours (Table) 07/21/24 07/22/24 Range/Units 15:38 07:00 APTT 45.2 H 44.4 H (22.0-30.0) sec Microbiology - Last 24 Hours (Table) 07/20/24 16:45 Nasal Screen MRSA/MSSA - Final Nasal Swab Assessment and Plan Assessment: Triple-vessel coronary artery disease Non-STEMI this admission Chest pain on admission Bilateral carotid artery stenosis 50 to 69% per carotid duplex study History of hypertension Hyperlipidemia, treated, cholesterol 161, LDL 97 Previous tobacco dependence, preoperative FEV1 76% of predicted value Daily wine usage Prostate cancer, pending radiation therapy Plan: A 5 m walk test was completed yesterday July 21, 2024 with the patient, time 1: 3.40 Seconds, time 2: 3.88 Seconds, time 3: 3.58 Seconds. A clinical frailty score has been calculated yesterday which equaled 2. An STS risk or has been also calculated and discussed with the patient. The patient is scheduled for myocardial vascularization surgery on July 24 to be performed by Dr. Briggs with left internal mammary artery, endoscopic vein harvest, endoscopic left radial artery harvest, intraoperative transesophageal echocardiogram and exclusion left atrial appendage. N.p.o. after midnight on July 24, 2024. Continue to discuss and reinforce preoperative teaching. Heparin drip management and recommendations per cardiology. Medical management and other comorbidities per internal medicine service and c ardiology. More recommendations to follow based on patient's clinical course. Time with Patient: Greater than 30
[2024-07-22] MEDS: hydrALAZINE HCL 25 MG TAB PO SCH (16:03)
[2024-07-23 07:35] LABS: Basophils % (A) 0 %; Eosinophils # (A) 0.1 k/uL (0-0.7); Eosinophils % (A) 2 %; HCT 37.7 % (39.0-53.0); HGB 12.4 gm/dL (13.0-17.5); Lymphocytes # (A) 1.3 k/uL (1.0-4.8); Lymphocytes % (A) 18 %; MCH 30.2 pg (25.0-35.0); MCHC 32.9 g/dL (31.0-37.0); MCV 91.8 fL (80.0-100.0); Mean Platelet Volume 7.6; Monocytes # (A) 0.4 k/uL (0-1.0); Monocytes % (A) 6 %; Neutrophils # (A) 5.1 k/uL (1.3-7.7); Neutrophils % (A) 72 %; Platelet Count 276 k/uL (150-450); RDW 13.2 % (11.5-15.5); WBC 7.1 k/uL (3.8-10.6)
[2024-07-23 07:54] LABS: ALT 36 U/L (4-49); AST 44 U/L (17-59); African American GFR (CKD) >90 (>60 ml/min/1.73 sqM); Albumin 3.4 g/dL (3.5-5.0); Alkaline Phosphatase 60 U/L (38-126); Anion Gap 8 mmol/L; Blood Urea Nitrogen 7 mg/dL (9-20); Calcium 9.2 mg/dL (8.4-10.2); Carbon Dioxide 23 mmol/L (22-30); Chloride 110 mmol/L (98-107); Glucose 90 mg/dL (74-99); Non-African American GFR(CKD) >90 (>60 ml/min/1.73 sqM); Potassium 3.9 mmol/L (3.5-5.1); Sodium 141 mmol/L (137-145); Total Bilirubin 0.5 mg/dL (0.2-1.3); Total Protein 5.9 g/dL (6.3-8.2)
--- NOTE | 2024-07-23 08:55 | P.PN ---
Subjective Progress Note Date: 07/23/24 Principal diagnosis: Coronary artery disease, non-STEMI this admission. Past medical history of hypertension, hyperlipidemia, prostate cancer in the process of getting radiation therapy, previous tobacco dependence, and daily wine usage. The patient was seen and examined at his bedside today July 23, 2024. He is currently sitting up to the bedside chair, is awake, alert, oriented x 3 and is in no acute apparent distress. Denies any complaints of shortness of breath, nausea, vomiting, chest pain or chest pressure. Heparin drip remains infusing per protocol and will be turned off on-call to the operating room tomorrow July 24, 2024. Preoperative testing has been completed, and preoperative teaching has been reinforced with the patient. He is scheduled for myocardial revascularization surgery with left internal mammary artery, endoscopic vein harvest, endoscopic left radial artery harvest, exclusion left atrial appendage and intraoperative transesophageal echocardiogram tomorrow Wednesday, July 24, 2024 to be performed by Dr. Joss Briggs. Laboratory results reviewed. Objective - Vital Signs Vital signs: Vital Signs Temp 98.6 F 07/23/24 04:14 Pulse 76 07/23/24 04:14 Resp 16 07/23/24 04:14 BP 151/71 07/23/24 04:14 Pulse Ox 95 07/23/24 06:54 FiO2 21 07/21/24 07:41 Intake & Output 07/22/24 07/23/24 07/23/24 18:59 06:59 18:59 Intake Total 728 540 Output Total 1900 Balance 728 -1360 Weight 91.7 kg Intake: Intake, IV Titration 250 Amount Heparin Sod,Pork in 0.45% 250 NaCl 25,000 unit In 0.45 % NaCl 1 250ml.bag @ 11. 603 UNITS/KG/HR 10 mls/hr IV .Q24H [facility] Rx#: [id number] Oral 478 540 Output: Urine 1900 Other: Voiding Method Toilet Toilet # Voids 2 1 - Exam CONSTITUTIONAL: Appears comfortable, cooperative, no apparent acute distress. HEENT: Neck is supple, no JVD, no lymphadenopathy. RESPIRATORY: Lungs sounds essentially clear throughout. Respirations are symmetrical and nonlabored. CARDIOVASCULAR: Regular rhythm and rate. S1 and S2 present, negative for S3, gallop or murmur. GASTROINTESTINAL: Abdomen soft, nontender, nondistended. Active bowel sounds present 4 quadrants. Tolerating diet. Passing flatus. No guarding or rigidity. GENITOURINARY: Continues to void. INTEGUMENTARY: Skin is warm and dry with no evidence of clubbing or cyanosis. NEUROLOGIC: Cranial nerves II through XII intact. No focal deficits. MUSKULOSKELETAL: Able to move all extremities, strength equal bilaterally. PSYCHIATRIC: Alert and oriented to person place and time, appropriate affect, intact judgment and insight. - Allied health notes Allied health notes reviewed: nursing - Labs CBC & Chem 7: 07/23/24 06:47 07/23/24 06:47 Labs: Abnormal Lab Results - Last 24 Hours (Table) 07/22/24 Range/Units 07:00 APTT 44.4 H (22.0-30.0) sec Microbiology - Last 24 Hours (Table) 07/20/24 16:45 Nasal Screen MRSA/MSSA - Final Nasal Swab Assessment and Plan Assessment: Triple-vessel coronary artery disease Non-STEMI this admission Chest pain on admission Bilateral carotid artery stenosis 50 to 69% per carotid duplex study History of hypertension Hyperlipidemia, treated, cholesterol 161, LDL 97 Previous tobacco dependence, preoperative FEV1 76% of predicted value Daily wine usage Prostate cancer, pending radiation therapy Plan: A 5 m walk test was completed with the patient on July 21, 2024 with the patient, time 1: 3.40 Seconds, time 2: 3.88 Seconds, time 3: 3.58 Seconds. A clinical frailty score has been calculated yesterday which equaled 2. An STS risk or has been also calculated and discussed with the patient. The patient is scheduled for myocardial vascularization surgery tomorrow July 24 to be performed by Dr. Briggs with left internal mammary artery, endoscopic vein harvest, endoscopic left radial artery harvest, intraoperative transesophageal echocardiogram and exclusion left atrial appendage. N.p.o. after midnight on July 24, 2024. Continue to discuss and reinforce preoperative teaching. Heparin drip management and recommendations per cardiology. Heparin drip will be discontinued on-call to the operating room. Medical management and other comorbidities per internal medicine service and cardiology. More recommendations to follow based on patient's clinical course. Time with Patient: Greater than 30
[2024-07-23] MEDS: HEPARIN SODIUM 1,000 UN/ML (10ML VL) IV PRN (10:40)
--- NOTE | 2024-07-23 11:09 | P.PN ---
Subjective Progress Note Date: 07/23/24 64-year-old male with a PMH of prostate cancer currently undergoing radiation therapy, hypertension, hyperlipidemia, and remote history of tobacco abuse who presented to the emergency room with complaints of chest and arm discomfort. In the emergency room and EKG revealed sinus rhythm at 51 bpm with inferior lead Q waves with no additional ST/T wave changes. Chest x-ray revealed no abnormalities. Laboratory evaluation was remarkable for troponin of 0.386 with a WBC count 6.4, hemoglobin 13.4, and sodium 137. He was started on a heparin infusion and admitted for Cardiology evaluation. Troponin trended 1.13, 2.53. He underwent cardiac cath which showed proximal LAD stenosis 90%, first obtuse marginal artery stenosis 70%, PLV subtotally occluded, proximal RCA stenosis 70%, and mid RCA stenosis 60 to 70%. Cardiothoracic surgery consulted, workup underway for CABG planned on Wednesday. 07/23 Patient was seen and examined. No chest pain. APTT today 42.6. Maintained on Heparin drip at 14.6 units/kg/hr and Nitropaste. CBC, CMP significant for RBC 4.1, Hg 12.4, Hct 37.7, Cl 110, BUN 7, alb 3.4. General: non toxic, no distress, appears at stated age Derm: warm, dry Head: atraumatic, normocephalic, symmetric Eyes: EOMI, no lid lag, anicteric sclera Mouth: no lip lesion, mucus membranes moist Cardiovascular: S1S2 reg, no murmur Lungs: Clear to auscultation bilaterally, no rhonchi, no rales , no accessory muscle use Ext: no gross muscle atrophy, no edema, no contractures Neuro: no focal neuro deficits Psych: Alert, oriented, appropriate affect Based on my assessment of this patient, this patient meets a high complexity level of care. NSTEMI: ASA 81 mg PO QD. Lipitor 80 mg PO QHS. NitroBid TOP Q8H. Continue Heparin drip. CT surgery evaluating for CABG on Wednesday. Telemetry monitoring. Cardiology on board. Pulmonary nodules: Repeat CT chest in 6 months. Hypertension: Labetalol 300 mg PO BID. Hydralazine 25 mg PO BID. Dyslipidemia: Lipitor as above. CODE STATUS: FULL CODE. DVT Prophylaxis: Heparin drip GI Prophylaxis: Designated medical POA if patient is not able to make medical decisions for themselves: Dispo: Pending clinical course. I have reviewed the following databases software consultant notes: CT surgery. I have reviewed the results of the following tests: APTT. CBC, CMP. I have ordered the following tests: Monitor coag panel while on Heparin drip. I have discussed the care of this patient with the following independent historian: , RN. I have independently interpreted the following test below: I have discussed the management of this patient with the following physician: Objective - Vital Signs Vital signs: Vital Signs Temp 98.6 F 07/23/24 04:14 Pulse 76 07/23/24 04:14 Resp 16 07/23/24 04:14 BP 151/71 07/23/24 04:14 Pulse Ox 95 07/23/24 06:54 FiO2 21 07/21/24 07:41 Intake & Output 07/22/24 07/23/24 07/23/24 18:59 06:59 18:59 Intake Total 728 540 Output Total 1900 Balance 728 -1360 Weight 91.7 kg Intake: Intake, IV Titration 250 Amount Heparin Sod,Pork in 0.45% 250 NaCl 25,000 unit In 0.45 % NaCl 1 250ml.bag @ 11. 603 UNITS/KG/HR 10 mls/hr IV .Q24H [facility] Rx#: [id number] Oral 478 540 Output: Urine 1900 Other: Voiding Method Toilet Toilet # Voids 2 1 - Labs CBC & Chem 7: 07/23/24 06:47 07/23/24 06:47 Labs: Abnormal Lab Results - Last 24 Hours (Table) 07/23/24 07/23/24 07/23/24 Range/Units 06:47 06:47 06:47 RBC 4.10 L (4.30-5.90) m/uL Hgb 12.4 L (13.0-17.5) gm/dL Hct 37.7 L (39.0-53.0) % APTT 42.6 H (22.0-30.0) sec Chloride 110 H (98-107) mmol/L BUN 7 L (9-20) mg/dL Total Protein 5.9 L (6.3-8.2) g/dL Albumin 3.4 L (3.5-5.0) g/dL Microbiology - Last 24 Hours (Table) 07/20/24 16:45 Nasal Screen MRSA/MSSA - Final Nasal Swab
--- NOTE | 2024-07-23 11:52 | P.PN ---
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 Patient has a past medical history of hypertension hyperlipidemia. He states he developed chest pain and soreness in the left arm which he never had before. It started during the night it went away initially and then came back. No shortness of breath, no sweats, no dizziness. No palpitations. He states he is normally very active he does not have any symptoms of chest pain or dyspnea on exertion. He has no pain at the time of this evaluation. He denies any lower extremity edema no fever no cough no wheezing. He does have a history of smoking but quit many years ago. Blood pressure 127/84, heart rate 54, pulse ox 97% on room air. EKG: Sinus rhythm, 51 bpm, no acute ST-T wave changes. Chest x-ray: No consolidation Laboratory studies: CBC unremarkable. Potassium 4.1, creatinine 0.87. Troponins 2.53, 1.13, 0.386.Triglycerides 66, cholesterol 161, LDL 96, HDL 51 Home cardiac medications: Amlodipine/benazepril 10-40 mg 1 at bedtime, aspirin 81 mg daily, labetalol 300 mg every 12 hours, pravastatin 40 mg daily. 07/21 Patient is seen today in follow-up. Yesterday he underwent cardiac catheterization which revealed severe triple-vessel coronary artery disease with slow flow in the PLV that could be the culprit lesion. Codominant system, elevated LVEDP. Patient was seen by cardiothoracic surgery with plan for CABG on Wednesday. Patient has been maintained on heparin drip. Medication changes made yesterday by cardiothoracic surgery and relationship to amlodipine, shahzad nopril were both discontinued and patient started on hydralazine. Blood pressure 169/81, heart rate 63, pulse ox 96% on room air. Repeat CBC unremarkable. 07/22/2024 Patient examined this morning at the bedside. Patient's family is present. Patient currently denies chest pain or pressure. He denies shortness of breath. He is about to take a shower at the time of examination. He remains on IV heparin. Blood pressure slightly elevated with recent readings of 146/72 and 168/84. 07/23/2024 Patient examined this morning the bedside. Patient's family is present. He currently denies chest pain or pressure. He denies shortness of breath. He remains on IV heparin. Blood pressure this morning 151/71. His hydralazine was increased yesterday. He is anticipating surgery tomorrow. PHYSICAL EXAM: VITAL SIGNS: Reviewed. GENERAL: Well-developed in no acute distress. NECK: Supple. No JVD or thyromegaly LUNGS: Respirations even and unlabored. Lungs essentially clear to auscultation bilaterally. HEART: Regular rate and rhythm. S1 and S2 heard. Systolic murmur noted EXTREMITIES: Normal range of motion. No clubbing or cyanosis. Peripheral pulses intact. No lower extremity edema ASSESSMENT: Non-STEMI, status post cardiac catheterization revealing triple-vessel disease Hypertension Hyperlipidemia Daily alcohol use Prostate cancer Former nicotine dependence PLAN: Continue current cardiac medications Continue IV Heparin Patient is tentatively scheduled for CABG on Wednesday, August 23, 2024 Further recommendations pending patient course Nurse practitioner note has been reviewed by physician. Signing provider agrees with the documented findings, assessment, and plan of care documented by SOFTWARE LICENSING SPECIALIST as a scribe. Objective - Vital Signs Vital signs: Vital Signs Temp 97.5 F L 07/23/24 10:00 Pulse 57 L 07/23/24 10:00 Resp 16 07/23/24 10:00 BP 189/88 07/23/24 10:00 Pulse Ox 98 07/23/24 10:00 FiO2 21 07/21/24 07:41 Intake & Output 07/22/24 07/23/24 07/23/24 18:59 06:59 18:59 Intake Total 728 540 362.321 Output Total 1900 Balance 728 -1360 362.321 Weight 91.7 kg Intake: Intake, IV Titration 250 162.321 Amount Heparin Sod,Pork in 0.45% 250 162.321 NaCl 25,000 unit In 0.45 % NaCl 1 250ml.bag @ 11. 603 UNITS/KG/HR 10 mls/hr IV .Q24H [facility] Rx#: [id number] Oral 478 540 200 Output: Urine 1900 Other: Voiding Method Toilet Toilet # Voids 2 1 - Labs CBC & Chem 7: 07/23/24 06:47 07/23/24 06:47 Labs: Abnormal Lab Results - Last 24 Hours (Table) 07/23/24 07/23/24 07/23/24 Range/Units 06:47 06:47 06:47 RBC 4.10 L (4.30-5.90) m/uL Hgb 12.4 L (13.0-17.5) gm/dL Hct 37.7 L (39.0-53.0) % APTT (22.0-30.0) sec Chloride 110 H (98-107) mmol/L BUN 7 L (9-20) mg/dL Total Protein 5.9 L (6.3-8.2) g/dL Albumin 3.4 L (3.5-5.0) g/dL Crossmatch See Detail 07/23/24 Range/Units 06:47 RBC (4.30-5.90) m/uL Hgb (13.0-17.5) gm/dL Hct (39.0-53.0) % APTT 42.6 H (22.0-30.0) sec Chloride (98-107) mmol/L BUN (9-20) mg/dL Total Protein (6.3-8.2) g/dL Albumin (3.5-5.0) g/dL Crossmatch Microbiology - Last 24 Hours (Table) 07/20/24 16:45 Nasal Screen MRSA/MSSA - Final Nasal Swab
--- NOTE | 2024-07-23 13:27 | P.CNPUL ---
History of Present Illness Consult date: 07/23/24 Reason for consult: chest pain History of present illness: This is a 64-year-old male patient with known history of hypertension hyperlipidemia prostate cancer and remote history of smoking, came into the hospital because of chest pain and the patient was found to have elevated troponins and he ruled in for non-ST segment elevation myocardial infarction. Subsequent cardiac catheterization showed 90% LAD, 70% first obtuse marginal branch, subtotally occluded PLV, 70% proximal RCA and 60 to 70% mid RCA. Following that, patient was seen by cardiothoracic surgery and the patient is being considered for bypass surgery. In fact, the patient will be taken for bypass tomorrow. CAT scan of the chest was done on 07/20/2024 and showed some sc attered bilateral pulmonary nodules that needs to be further monitored on outpatient basis. These are nonspecific findings. No other acute abnormalities have been noted. Echocardiogram done on 07/20/2024 preserved LV function without any significant abnormalities. The white cell count is at 7.1 with a hemoglobin 12.4 and a platelet count of 276. Electrolytes are all within normal limits. The patient is currently on room air oxygen. Is ambulating. Bedside spirometry was done and his FEV1 is in order of 76% of predicted. Review of Systems Constitutional: Denies chills, Denies fever Eyes: denies as per HPI, denies blurred vision, denies bulging eye, denies decreased vision, denies diplopia, denies discharge, denies dry eye, denies irritation, denies itching, denies pain, denies photophobia, denies loss of peripheral vision, denies loss of vision, denies tunnel vision/blind spots Ears: deny: decreased hearing, ear discharge, earache, tinnitus Ears, nose, mouth and throat: Reports as per HPI Breasts: absent: as per HPI, gynecomastia Cardiovascular: Reports chest pain Respiratory: Reports as per HPI Gastrointestinal: Reports as per HPI Genitourinary: Reports as per HPI Musculoskeletal: Reports as per HPI Musculoskeletal: absent: ankle pain, ankle stiffness, ankle swelling, as per HPI, elbow pain, elbow stiffness, elbow swelling, foot pain, foot stiffness, foot swelling, hand pain, hand stiffness, hand swelling, hip pain, hip stiffness, hip swelling, knee pain, knee stiffness, knee swelling, shoulder pain, shoulder stiffness, shoulder swelling, wrist pain, wrist stiffness, wrist swelling Integumentary: Reports as per HPI Neurological: Reports as per HPI Psychiatric: Reports as per HPI Endocrine: Reports as per HPI Hematologic/Lymphatic: Reports as per HPI Allergic/Immunologic: Reports as per HPI Past Medical History Past Medical History: Coronary Artery Disease (CAD), Hyperlipidemia, Hyp ertension Additional Past Medical History / Comment(s): prostate ca-radiation tx History of Any Multi-Drug Resistant Organisms: None Reported Past Surgical History: Prostate Surgery, Tonsillectomy Past Psychological History: No Psychological Hx Reported Smoking Status: Former smoker Past Alcohol Use History: Daily Past Drug Use History: None Reported - Past Family History Father Family Medical History: Myocardial Infarction ([place]) Additional Family Medical History / Comment(s): prostate cancer in uncle Medications and Allergies Home Medications Medication Instructions Recorded Confirmed Type Aspirin 81 mg PO DAILY 03/06/24 07/20/24 History Labetalol HCl 300 mg PO Q12H 03/06/24 07/20/24 History Pravastatin Sodium [Pravachol] 40 mg PO DAILY 03/06/24 07/20/24 History amLODIPine BESYLATE/BENAZEPRIL 1 cap PO HS 03/06/24 07/20/24 History [amLODIPine BESYLATE/BENAZEPRIL 10-40 mg] Allergies Allergy/AdvReac Type Severity Reaction Status Date / Time No Known Allergies Allergy Verified 07/20/24 07:24 Physical Exam Vitals: Vital Signs Temp Pulse Pulse Resp BP Pulse Ox 07/23/24 06:54 95 07/23/24 04:14 98.6 F 76 16 151/71 96 07/22/24 23:39 98.4 F 60 16 160/79 94 L 07/22/24 19:56 98.4 F 56 L 16 161/85 96 07/22/24 16:00 98.2 F 57 L 16 168/78 97 07/22/24 14:00 63 16 07/22/24 12:00 97.8 F 59 L 16 152/74 97 Intake and Output 07/22/24 07/23/24 07/23/24 22:59 06:59 14:59 Intake Total 658 200 Output Total 1000 900 Balance -342 -900 200 Intake: Oral 658 200 Output: Urine 1000 900 Other: Voiding Method Toilet Toilet # Voids 1 Weight 91.7 kg The patient appeared well nourished and normally developed. Vital signs as documented. Head exam is unremarkable. No scleral icterus or corneal arcus noted. Neck is without jugular venous distension, thyromegaly, or carotid bruits. Carotid upstrokes are brisk bilaterally. Lungs are clear to auscultation and percussion. Cardiac exam reveals the PMI to be normally sized and situated. Rhythm is re gular. First and second heart sounds normal. No murmurs, rubs or gallops. Abdominal exam reveals normal bowel sounds, no masses, no organomegaly and no aortic enlargement. Extremities are nonedematous and both femoral and pedal pulses are normal. Examination of the skin revealed no evidence of significant rashes, suspicious appearing nevi or other concerning lesions. Neurologically, the patient is awake and alert and the patient does not have any focal neurological deficit. Cranial nerves are essentially intact. Results - Laboratory Findings CBC and BMP: 07/23/24 06:47 07/23/24 06:47 PT/INR, D-dimer PT 10.7 sec (10.0-12.5) 07/21/24 01:17 INR 1.0 (<1.2) 07/21/24 01:17 Abnormal lab findings: Abnormal Labs 07/19/24 07/19/24 07/20/24 22:14 22:14 00:09 RBC Hgb Hct APTT Chloride 110 H BUN Glucose 117 H Troponin I 0.386 H* 1.130 H* Total Protein Albumin 07/20/24 07/20/24 07/20/24 04:08 04:12 09:46 RBC Hgb Hct APTT 39.3 H 52.0 H Chloride BUN Glucose Troponin I 2.530 H* Total Protein Albumin 07/20/24 07/20/24 07/21/24 13:04 13:17 01:17 RBC Hgb Hct APTT 67.0 H 33.4 H Chloride 111 H BUN Glucose 125 H Troponin I Total Protein Albumin 07/21/24 07/21/24 07/21/24 07:49 07:49 15:38 RBC Hgb Hct APTT 39.5 H 45.2 H Chloride BUN Glucose Troponin I 3.660 H* Total Protein Albumin 07/22/24 07/23/24 07/23/24 07:00 06:47 06:47 RBC 4.10 L Hgb 12.4 L Hct 37.7 L APTT 44.4 H Chloride 110 H BUN 7 L Glucose Troponin I Total Protein 5.9 L Albumin 3.4 L 07/23/24 06:47 RBC Hgb Hct APTT 42.6 H Chloride BUN Glucose Troponin I Total Protein Albumin - Diagnostic Findings CT scan - chest: image reviewed Assessment and Plan Plan: Triple-vessel coronary artery disease, awaiting coronary bypass surgery and the patient is scheduled to undergo bypass on 07/24/2024. Clinically stable. Hemodynamically stable. Acute Non-STEMI secondary to above Bilateral carotid artery stenosis 50 to 69% per carotid duplex study hypertension Hyperlipidemia, , LDL 97 Previous tobacco dependence, preoperative FEV1 76% of predicted value Prostate cancer, pending radiation therapy Plan Patient is currently on room air oxygen. The patient is using incentive spirometer. The patient is hemodynamically stable. The patient has been free of any chest pain. The plan is to proceed with coronary artery bypass surgery this will be done tomorrow. Will be involved in the postoperative care including managing the mechanical ventilator and attending to any postoperative pulmonary issues. The patient has no other complaints for now. Will continue to follow.
[2024-07-23 15:58] LABS: Appearance,Urine Clear (Clear); Bilirubin,Urine Negative (Negative); Blood,Urine Negative (Negative); Color,Urine Colorless; Glucose,Urine (UA) Negative (Negative); Ketones,Urine Negative (Negative); Leukocyte Esterase,Urine Negative (Negative); Nitrite,Urine Negative (Negative); Protein,Urine Negative (Negative); Specific Gravity,Urine 1.008 (1.001-1.035); Urobilinogen,Urine <2.0 mg/dL (<2.0)
[2024-07-24] MEDS: ATORVASTATIN 10 MG TAB PO ONE (04:48)
[2024-07-24] MEDS: ASPIRIN 325 MG TAB PO ONE (04:48)
[2024-07-24] MEDS: METOPROLOL TARTRATE 12.5 MG TAB PO ONE (04:48)
[2024-07-24] MEDS ORDERED: NOREPINEPHRINE 4 MG in SODIUM CHLORIDE 0.9% 250 ML IV SCH (05:00)
[2024-07-24] MEDS ORDERED: INSULIN REGULAR 100 UNIT in SODIUM CHLORIDE 0.9% 100 ML IV SCH (05:00)
[2024-07-24 05:34] LABS: Glucose,Whole Blood 103 mg/dL (70-110)
[2024-07-24] MEDS: IV FLUID CONTINUATION 1,000 ML IV ONE (06:47)
[2024-07-24] MEDS ORDERED: VECURONIUM 10 MG VIAL IV ONE (07:31)
[2024-07-24] MEDS ORDERED: PROPOFOL 10 MG/ML 20 ML VIAL IV ONE (07:31)
[2024-07-24] MEDS ORDERED: PROTAMINE SULFATE 10 MG/ML 25 ML VIAL IV ONE (07:31)
[2024-07-24] MEDS ORDERED: TRANEXAMIC 1,000 MG/100ML-NACL PREMIX BAG ONE (07:31)
[2024-07-24] MEDS ORDERED: MIDAZOLAM HCL 10 MG/10 ML VIAL ONE (07:31)
[2024-07-24] MEDS ORDERED: ePHEDrine 50 MG/ML 1 ML VIAL ONE (07:31)
[2024-07-24] MEDS ORDERED: fentaNYL (PF) 50 MCG/ML 50 ML VIAL ONE (07:31)
[2024-07-24] MEDS: SODIUM CHLORIDE 0.9% 50 ML with ceFAZolin 2,000 MG IV ONE (08:20)
[2024-07-24] MEDS: SODIUM CHLORIDE 0.9% 500 ML 500 ML with HEPARIN SODIUM,PORCINE (1 ML) 5,000 UNIT IV ONE (09:03)
[2024-07-24] MEDS: PAPAVERINE 360 MG in SODIUM CHLORIDE 0.9% 90 ML IV ONE (09:04)
[2024-07-24] MEDS: ceFAZolin 1,000 MG in SODIUM CHLORIDE 0.9% 1,000 ML IRRIGATION ONE (09:04)
[2024-07-24] MEDS ORDERED: DEXMEDETOMIDINE/0.9% NACL(PMX) 400 MCG in EMPTY BAG 1 BAG IV SCH (14:47)
[2024-07-24] MEDS ORDERED: CALCIUM GLUCONATE IN NACL 2 GM in SALINE 1 100ML.BAG IVPB PRN (14:47)
[2024-07-24] MEDS ORDERED: Magnesium Replacement Protocol 1 EACH MISC MISCELLANE PRN (14:47)
[2024-07-24] MEDS ORDERED: DEXTROSE 50% SYRINGE 50 ML IVP PRN ×2 (14:47)
[2024-07-24] MEDS ORDERED: IPRATROPIUM-ALBUTEROL 3 ML NEB INHALATION PRN (14:47)
[2024-07-24] MEDS ORDERED: BENZOCAINE/MENTHOL LOZENG 1 EACH LOZENGE MUCOUS MEM PRN (14:47)
[2024-07-24] MEDS ORDERED: hydrALAZINE HCL 20 MG/ML 1 ML VIAL IVP PRN (14:47)
[2024-07-24] MEDS ORDERED: ONDANSETRON 4 MG/2 ML VIAL IVP PRN (14:47)
[2024-07-24] MEDS ORDERED: Phosphorus Replacement Protoco 1 EACH MISC MISCELLANE PRN (14:47)
[2024-07-24] MEDS ORDERED: Potassium Replacement Protocol 1 EACH MISC MISCELLANE PRN (14:47)
[2024-07-24] MEDS: IPRATROPIUM-ALBUTEROL 3 ML NEB INHALATION SCH ×2 (15:14→20:30)
[2024-07-24 15:25] LABS: Basophils % (A) 0 %; Eosinophils # (A) 0.1 k/uL (0-0.7); Eosinophils % (A) 1 %; HCT 31.1 % (39.0-53.0); HGB 10.1 gm/dL (13.0-17.5); Lymphocytes # (A) 1.3 k/uL (1.0-4.8); Lymphocytes % (A) 11 %; MCHC 32.5 g/dL (31.0-37.0); MCV 92.3 fL (80.0-100.0); Mean Platelet Volume 8.6; Monocytes # (A) 0.3 k/uL (0-1.0); Monocytes % (A) 3 %; Neutrophils # (A) 9.9 k/uL (1.3-7.7); Neutrophils % (A) 84 %; Platelet Count 173 k/uL (150-450); RBC 3.37 m/uL (4.30-5.90); RDW 13.5 % (11.5-15.5); WBC 11.8 k/uL (3.8-10.6)
[2024-07-24] MEDS: CLEVIDIPINE BUTYRATE 25 MG in EMPTY BAG 1 BAG IV SCH (15:25)
[2024-07-24] MEDS: SODIUM CHLORIDE 0.9% 1,000 ML IV SCH (15:26)
[2024-07-24] MEDS: NITROGLYCERIN-D5W PMX 50 MG in DEXTROSE/WATER 1 250ML.BAG IV SCH (15:26)
[2024-07-24 15:36] LABS: INR 1.1 (<1.2); Partial Thromboplastin Time 28.3 sec (22.0-30.0); Prothrombin Time 12.3 sec (10.0-12.5)
[2024-07-24 15:39] LABS: Ionized Calcium 4.7 mg/dL (4.5-5.3)
[2024-07-24 15:44] LABS: Glucose,Whole Blood 123 mg/dL (70-110)
[2024-07-24 15:49] LABS: ALT 58 U/L (4-49); AST 90 U/L (17-59); African American GFR (CKD) >90 (>60 ml/min/1.73 sqM); Albumin 2.5 g/dL (3.5-5.0); Alkaline Phosphatase 45 U/L (38-126); Anion Gap 2 mmol/L; Blood Urea Nitrogen 10 mg/dL (9-20); Calcium 8.1 mg/dL (8.4-10.2); Carbon Dioxide 24 mmol/L (22-30); Chloride 115 mmol/L (98-107); Glucose 104 mg/dL (74-99); Magnesium 2.5 mg/dL (1.6-2.3); Non-African American GFR(CKD) >90 (>60 ml/min/1.73 sqM); Sodium 141 mmol/L (137-145); Total Bilirubin 0.8 mg/dL (0.2-1.3); Total Protein 4.4 g/dL (6.3-8.2)
--- NOTE | 2024-07-24 15:58 | XR ---
EXAMINATION TYPE: XR chest 1V portable DATE OF EXAM: 07/24/2024 3:52 PM CLINICAL INDICATION: Male, 64 years old with history of Post Operative Cardiac Surgery; [facility] COMPARISON: Chest radiographs from 07/19/2024 TECHNIQUE: XR chest 1V portable Frontal view of the chest. FINDINGS: Lungs/Pleura: There is no evidence of pleural effusion, focal consolidation, or pneumothorax. Pulmonary vascularity: Unremarkable. Heart/mediastinum: Cardiomediastinal silhouette is unremarkable. Musculoskeletal: No acute osseous pathology. Midline sternotomy wires are noted. Other findings: None Lines/Tubes: Poorly visualized in the thecal tube tip due to overlapping structures but is thought to be above the adwoa at least 1.8 cm. Nasogastric tube with side-port projecting over the distal esophagus. There is a Mckean-Konrad catheter with tip projecting over the spine. Left thoracotomy tube is present without evidence of pneumothorax. Drainage tubes with tips projecting over the mediastinum. IMPRESSION: 1. Nasogastric tube side-port near the distal esophagus consider advancement of [address] acement. 2. Poorly visualized endotracheal tube tip but it is thought to be above the adwoa. 3. No postop location definitively visualized. [facility], , 07/24/2024 3:56 PM
[2024-07-24 16:02] LABS: ABG Base Excess -2.5 mmol/L; ABG HCO3 24 mmol/L (21-25); ABG Oxygen Saturation 99.3 % (94-97); ABG PCO2 47 mmHg (35-45); ABG PH 7.32 (7.35-7.45); ABG PO2 141 mmHg (83-108); ABG TCO2 25 mmol/L (19-24)
[2024-07-24] MEDS: HEPARIN SODIUM,PORCINE 5,000 UNIT/ML 1 ML VIAL SQ SCH (16:46)
[2024-07-24] MEDS: ACETAMINOPHEN IV (For NPO) 1,000 MG in EMPTY BAG 1 BAG IVPB SCH (16:46)
[2024-07-24 16:59] LABS: Glucose,Whole Blood 132 mg/dL (70-110)
[2024-07-24 17:03] LABS: Basophils % (A) 0 %; Eosinophils # (A) 0.1 k/uL (0-0.7); Eosinophils % (A) 1 %; HCT 33.8 % (39.0-53.0); HGB 11.4 gm/dL (13.0-17.5); Lymphocytes % (A) 7 %; MCH 30.8 pg (25.0-35.0); MCHC 33.6 g/dL (31.0-37.0); MCV 91.7 fL (80.0-100.0); Monocytes # (A) 0.4 k/uL (0-1.0); Monocytes % (A) 3 %; Neutrophils # (A) 12.3 k/uL (1.3-7.7); Neutrophils % (A) 88 %; Platelet Count 239 k/uL (150-450); RBC 3.69 m/uL (4.30-5.90); RDW 13.8 % (11.5-15.5); WBC 13.9 k/uL (3.8-10.6)
[2024-07-24] MEDS: INSULIN REGULAR 100 UNIT in SODIUM CHLORIDE 0.9% 100 ML IV SCH (17:07)
--- NOTE | 2024-07-24 17:09 | P.ANPRN ---
Procedure Note - Anesthesia - Invasive Line Right Tripoli Konrad Time Out Performed: Yes (0707) Date of Procedure: 07/24/24 Time of Procedure: 07:22 Location of Patient: PreOp Preparation: Sterile Prep, Sterile Dressing [place] Konrad Line Location: Internal Jugular (right) Ultrasound Used: No Purpose - Visualization and Identification of Vasculature: No Image Stored and Saved: No Narrative: Invasive line placement per sterile protocol utilized. Anesthesia note Procedure right Tri[place]i-Konrad catheter placed through right internal jugular central venous catheter Sterile protocol maintained from previous procedure. [place]-Konrad catheter sterilely placed in sheath and flushed prior to insertion. After advancing 15 cm Tri[place]-Konrad catheter was then slowly inserted with balloon up. Advanced through CVP, RV to PA waveform. [place]-Konrad catheter wedged around 51 cm. Balloon down. Catheter withdrawn 5 cm. . No wedge. Proximal and distal sites locked on sheath. Attempts x1. Sterile drapes removed and dressings applied.
--- NOTE | 2024-07-24 17:09 | P.ANPRN ---
Procedure Note - Anesthesia - Invasive Line Right Central Line Time Out Performed: Yes (0707) Date of Procedure: 07/24/24 Time of Procedure: 07:08 Location of Patient: Phase I Preparation: Sterile Prep, Sterile Dressing Central Line Location: Internal Jugular (right IJ Cordis) Ultrasound Used: Yes Purpose - Visualization and Identification of Vasculature: Yes Needle Guage: 18g angio Image Stored and Saved: Yes Narrative: Invasive line placement per sterile protocol utilized. Anesthesia note Procedure: Internal jugular central venous catheter insertion: 8.5-Serbian Cordis Sterile protocol followed. Right neck prepped. Ultrasound used. Lidocaine 1% used. Using ultrasound local anesthetic was instilled site over right Internal Jugular vein. Angiocath was used to gain access via ultrasound. Once free flow non-pulsatile blood flow was confirmed, 12 inch extension tubing was then placed on Angiocath. Once central venous pressure was confirmed, J-wire was then placed through Angiocath. Angiocath was then withdrawn. Local was instilled at J-wire site. Small skin krystian was then made with provided sterile scalpel. 8.5- Serbian Cordis was then inserted over the wire while maintaining control of wire at all times. Uneventful insertion with dilation. Free flow nonpulsatile blood flow through Cordis. Hooked up to IV tubing. Secured with suture. Dressings applied. Drapes Removed. Attempts x1.
--- NOTE | 2024-07-24 17:12 | P.ANPRN ---
Procedure Note - Anesthesia - KALPESH Intraop Post Bypass KALPESH Intraop Post Bypass Procedure Performed: CABG Left Ventricle: wnl Ejection Fraction: Normal Regional Wall Motion Abnormalities: None Right Ventricle: wnl R. Ventricle Function: Normal Aortic Valve: Unchanged Mitral Valve: Unchanged Tricuspid: Unchanged Pulmonic: Unchanged Aortic Dissection: No
--- NOTE | 2024-07-24 17:12 | P.ANPRN ---
Procedure Note - Anesthesia - KALPESH Intraop Pre Bypass KALPESH Intraop - Anesthesia Indication: CAD Date of Procedure: 07/24/24 Pre-operative Diagnosis: CAD Post-operative Diagnosis: CAD s/p CABGx5 Surgeon: Joss Briggs Left Ventricle: wnl. Ejection Fraction: Normal Regional Wall Motion Abnormalities: None Left Ventricle Hypertrophy: No R. Ventricle Function: Normal Anatomy: Trileaflet Aortic Stenosis: Mild Aortic Regurgitation: Trace Mitral Stenosis: None Mitral Regurgitation: None Tricuspid Regurgitation: Trace Pulmonic Stenosis: None Pulmonic Regurgitation: None R. Atrial Dilation: No R. Atrial PFO: No L. Atrial Dilation: No Aortic Dissection: No Aortic Calcification: None Plural Effusion: None
--- NOTE | 2024-07-24 17:19 | P.PN ---
Subjective Progress Note Date: 07/24/24 Principal diagnosis: Triple-vessel coronary artery disease /status post CABG postoperative day #0 This is a 64-year-old male patient with known history of hypertension hyperlipi demia prostate cancer and remote history of smoking, came into the hospital because of chest pain and the patient was found to have elevated troponins and he ruled in for non-ST segment elevation myocardial infarction. Subsequent cardiac catheterization showed 90% LAD, 70% first obtuse marginal branch, subtotally occluded PLV, 70% proximal RCA and 60 to 70% mid RCA. Following that, patient was seen by cardiothoracic surgery and the patient is being considered for bypass surgery. In fact, the patient will be taken for bypass tomorrow. CAT scan of the chest was done on 07/20/2024 and showed some scattered bilateral pulmonary nodules that needs to be further monitored on outpatient basis. These are nonspecific findings. No other acute abnormalities have been noted. Echocardiogram done on 07/20/2024 preserved LV function without any significant abnormalities. The white cell count is at 7.1 with a hemoglobin 12.4 and a platelet count of 276. Electrolytes are all within normal limits. The patient is currently on room air oxygen. Is ambulating. Bedside spirometry was done and his FEV1 is in order of 76% of predicted. Patient was evaluated today 07/24/2024, patient underwent CABG, for triple-vessel coronary artery disease, brought back to the ICU intubated and mechanically vent ilated, and I am seeing him on follow-up. Patient is on assist-control rate of 12 tidal volume 500 FiO2 100% and PEEP of 5 ABG showed a pO2 of 141 pCO2 47 pH of 7.32 hence his FiO2 was cut down and his rate was increased to 14. Patient has cardiac output of 5.6, cardiac index of 2.7, patient is on multiple drips including Cleviprex at 8 mg/h, nitro at 5 mcg /min, and he is on propofol at 30 mcg/kg/min chest x-ray postoperatively showed nasogastric tube in distal esophagus, endotracheal tube above the adwoa, and no acute process noted.Cannot rule out pneumonia WBC 13.9 hemoglobin is 11.4 Patient is sedated, on propofol Objective - Vital Signs Vital signs: Vital Signs Temp 97.3 F L 07/24/24 16:00 Pulse 80 07/24/24 16:00 Resp 12 07/24/24 16:00 BP 144/82 07/24/24 06:48 Pulse Ox 98 07/24/24 16:00 FiO2 60 07/24/24 16:42 Intake & Output 07/23/24 07/24/24 07/24/24 18:59 06:59 18:59 Intake Total 690.000 400 243.671 Output Total 1450 Balance 690.000 400 -1206.329 Weight 90.9 kg Intake: IV 400 211 CO/CI 40 Pressure Bag 18 Sodium Chloride 0.9% 1, 100 000 ml @ 50 mls/hr IV . Q20H KR[facility] Rx#:[id number] Intake, IV Titration 250.000 32.671 Amount Clevidipine Butyrate 25 10.400 mg In Empty Bag 1 bag @ 1 MG/HR 2 mls/hr IV .Q24H [facility] Rx#:[id number] Heparin Sod,Pork in 0.45% 250.000 NaCl 25,000 unit In 0.45 % NaCl 1 250ml.bag @ 11. 603 UNITS/KG/HR 10 mls/hr IV .Q24H [facility] Rx#: [id number] propofoL 1,000 mg In 22.271 Empty Bag 1 bag @ Titrate IV .Q0M KRYS Rx#: [id number] Oral 440 Output: Chest Tube Drainage 100 Left Pleural 60 Mediastinal 40 Urine 850 Estimated Blood Loss 500 Other: Voiding Method Toilet Toilet Indwelling Catheter # Voids 2 2 ABP, PAP, CO, CI - Last Documented Arterial Blood Pressure 118/56 Pulmonary Artery Pressure 32/17 Cardiac Output 5.4 Cardiac Index 2.6 - Exam General:: revealed a 64-year-old white male in no distress, intubated and mechanically ventilated. Endotracheal tube and orogastric tube are intact. HEENT: Neck is supple, no JVD, no lymphadenopathy. RESPIRATORY: Good breath sound bilaterally no crackles rhonchi or wheezes CARDIOVASCULAR: Regular rhythm and rate. S1 and S2 present, negative for S3, gallop or murmur. GASTROINTESTINAL: Soft nontender No rebound no guarding INTEGUMENTARY: Skin is warm and dry with no evidence of clubbing or cyanosis. NEUROLOGIC: Could not assess, patient is sedated and mechanically ventilated on propofol MUSKULOSKELETAL: No deformities noted PSYCHIATRIC: Could not assess, patient is sedated - Labs CBC & Chem 7: 07/24/24 16:55 07/24/24 15:15 Labs: Abnormal Lab Results - Last 24 Hours (Table) 07/23/24 07/23/24 07/24/24 Range/Units 06:47 16:54 15:15 WBC 11.8 H (3.8-10.6) k/uL RBC 3.37 L (4.30-5.90) m/uL Hgb 10.1 L (13.0-17.5) gm/dL Hct 31.1 L (39.0-53.0) % Neutrophils # 9.9 H (1.3-7.7) k/uL APTT 52.4 H (22.0-30.0) sec ABG pH (7.35-7.45) ABG pCO2 (35-45) mmHg ABG pO2 (83-108) mmHg ABG Total CO2 (19-24) mmol/L ABG O2 Saturation (94-97) % Chloride (98-107) mmol/L Glucose (74-99) mg/dL POC Glucose (mg/dL) (70-110) mg/dL Calcium (8.4-10.2) mg/dL Magnesium (1.6-2.3) mg/dL AST (17-59) U/L ALT (4-49) U/L Total Protein (6.3-8.2) g/dL Albumin (3.5-5.0) g/dL Crossmatch See Detail 07/24/24 07/24/24 07/24/24 Range/Units 15:15 15:42 15:43 WBC (3.8-10.6) k/uL RBC (4.30-5.90) m/uL Hgb (13.0-17.5) gm/dL Hct (39.0-53.0) % Neutrophils # (1.3-7.7) k/uL APTT (22.0-30.0) sec ABG pH 7.32 L (7.35-7.45) ABG pCO2 47 H (35-45) mmHg ABG pO2 141 H (83-108) mmHg ABG Total CO2 25 H (19-24) mmol/L ABG O2 Saturation 99.3 H (94-97) % Chloride 115 H (98-107) mmol/L Glucose 104 H (74-99) mg/dL POC Glucose (mg/dL) 123 H (70-110) mg/dL Calcium 8.1 L (8.4-10.2) mg/dL Magnesium 2.5 H (1.6-2.3) mg/dL AST 90 H (17-59) U/L ALT 58 H (4-49) U/L Total Protein 4.4 L (6.3-8.2) g/dL Albumin 2.5 L (3.5-5.0) g/dL Crossmatch 07/24/24 07/24/24 Range/Units 16:55 16:57 WBC 13.9 H (3.8-10.6) k/uL RBC 3.69 L (4.30-5.90) m/uL Hgb 11.4 L (13.0-17.5) gm/dL Hct 33.8 L (39.0-53.0) % Neutrophils # 12.3 H (1.3-7.7) k/uL APTT (22.0-30.0) sec ABG pH (7.35-7.45) ABG pCO2 (35-45) mmHg ABG pO2 (83-108) mmHg ABG Total CO2 (19-24) mmol/L ABG O2 Saturation (94-97) % Chloride (98-107) mmol/L Glucose (74-99) mg/dL POC Glucose (mg/dL) 132 H (70-110) mg/dL Calcium (8.4-10.2) mg/dL Magnesium (1.6-2.3) mg/dL AST (17-59) U/L ALT (4-49) U/L Total Protein (6.3-8.2) g/dL Albumin (3.5-5.0) g/dL Crossmatch Microbiology - Last 24 Hours (Table) 07/22/24 14:36 Nasal Screen MRSA/MSSA - Final Nasopharyngeal Swab Assessment and Plan Assessment: Impression: Triple-vessel coronary artery disease, status post CABG postoperative day #0 Acute non-ST elevation myocardial infarction on this admission Benign essential hypertension Dyslipidemia Ex-smoker, preoperative FEV1 of 76% History of prostate cancer pending radiation therapy recommendation: Reviewed ventilatory settings and adjusted accordingly based on his ABG Reviewed patient's chest x-ray Reviewed hemodynamics including cardiac output and cardiac index Reviewed his present medications including IV drips/Cleviprex and nitroglycerin as well as propofol Continue ventilatory support Continue Cleviprex for management of blood pressure Continue propofol for now, however will consider stopping propofol in the next few hours and address weaning trials Patient is relatively critically ill, will continue to follow Critical care time is over 30. Time with Patient: Greater than 30
[2024-07-24 18:04] LABS: Glucose,Whole Blood 135 mg/dL (70-110)
--- NOTE | 2024-07-24 18:17 | P.PN ---
Subjective Progress Note Date: 07/24/24 64-year-old male with a PMH of prostate cancer currently undergoing radiation therapy, hypertension, hyperlipidemia, and remote history of tobacco abuse who presented to the emergency room with complaints of chest and arm discomfort. In the emergency room and EKG revealed sinus rhythm at 51 bpm with inferior lead Q waves with no additional ST/T wave changes. Chest x-ray revealed no abnormalities. Laboratory evaluation was remarkable for troponin of 0.386 with a WBC count 6.4, hemoglobin 13.4, and sodium 137. He was started on a heparin infusion and admitted for Cardiology evaluation. Troponin trended 1.13, 2.53. He underwent cardiac cath which showed proximal LAD stenosis 90%, first obtuse marginal artery stenosis 70%, PLV subtotally occluded, proximal RCA stenosis 70%, and mid RCA stenosis 60 to 70%. Cardiothoracic surgery consulted, workup underway for CABG planned on Wednesday. 07/24 Patient was seen and examined. Post CABG. Intubated off Propofol and responding by nodding his head. Currently on NS at 50 cc/hr. Insulin drip at 1 unit/hr. Clevidipine drip at 6 mg/hr. Nitroglycerine drip at 5 mcg/min. CBC WBC 13.9, RBC 3.69, Hg 11.4, Hct 33.8. ABG pH 7.32, pCO2 47, pO2 141 on FiO2 100. C MP Cl 115, glu 104, Ca 8.1, AST 90, ALT 58, alb 2.5. Mag 2.5. CXR shows NG tube near the distal esophagus, ET tube, [place]-Konrad, left thoracotomy tube, mediastinal drainage tube. General: non toxic, no distress, appears at stated age, Intubated Derm: warm, dry Head: atraumatic, normocephalic, symmetric Eyes: EOMI, no lid lag, anicteric sclera Mouth: no lip lesion, mucus membranes moist Cardiovascular: S1S2 reg, no murmur, mediastinal dressing c/d/i, heart hugger in place, mediastinal + L chest tube in place Lungs: Decreased BS bilaterally, no rhonchi, no rales , no accessory muscle use Ext: no gross muscle atrophy, no edema, no contractures, bilateral LE wrapped Neuro: no focal neuro deficits Psych: Alert, oriented, appropriate affect Based on my assessment of this patient, this patient meets a high complexity level of care. Acute hypoxic respiratory failure POD 0 CABG: Ventilator managed by Pulmonary. Hopeful extubation today. Pulmonary on board. NSTEMI status post CABG POD 0: ASA 325 mg PO QD. Lipitor 80 mg PO QHS Plavix 75 mg PO QD. Metoprolol 12.5 mg PO BID. Telemetry monitoring. Cardiology and CT surgery on board. Leukocytosis likely reactive with no signs of active infection. Acute blood loss anemia which is an expected result of surgery. Pulmonary nodules: Repeat CT chest in 6 months. Hypertension: Metoprolol as above. Clevidipine drip as above. Hydralazine IV PRN with parameters. Dyslipidemia: Lipitor as above. CODE STATUS: FULL CODE. DVT Prophylaxis: Heparin SQ GI Prophylaxis: Protonix IV Designated medical POA if patient is not able to make medical decisions for themselves: I have reviewed the following distributor sales consultant notes: Pulmonary. I have reviewed the results of the following tests: ABG. CBC, CMP. CXR. I have ordered the following tests: Daily CBC, CMP, Mag, CXR. I have discussed the care of this patient with the following independent historian: LIEN. I have independently interpreted the following test below: I have discussed the management of this patient with the following physician: Objective - Vital Signs Vital signs: Vital Signs Temp 97.3 F L 07/24/24 16:00 Pulse 80 07/24/24 17:15 Resp 14 07/24/24 17:15 BP 144/82 07/24/24 06:48 Pulse Ox 92 L 07/24/24 17:15 FiO2 60 07/24/24 17:00 Intake & Output 07/23/24 07/24/24 07/24/24 18:59 06:59 18:59 Intake Total 690.000 400 482.701 Output Total 1585 Balance 690.000 400 -1102.299 Weight 90.9 kg Intake: IV 400 440 ACETAMINOPHEN IV (For NPO 100 ) 1,000 mg In Empty Bag 1 bag @ 400 mls/hr IVPB Q6H [facility] Rx#:[id number] CO/CI 60 Pressure Bag 27 Sodium Chloride 0.9% 1, 150 000 ml @ 50 mls/hr IV . Q20H [facility] Rx#:[id number] ceFAZolin 2 gm In Sodium 50 Chloride 0.9% 50 ml @ 100 mls/hr IVPB ONCE ONE Rx# :[id number] Intake, IV Titration 250.000 42.701 Amount Clevidipine Butyrate 25 19.067 mg In Empty Bag 1 bag @ 1 MG/HR 2 mls/hr IV .Q24H [facility] Rx#:[id number] Heparin Sod,Pork in 0.45% 250.000 NaCl 25,000 unit In 0.45 % NaCl 1 250ml.bag @ 11. 603 UNITS/KG/HR 10 mls/hr IV .Q24H [facility] Rx#: [id number] propofoL 1,000 mg In 23.634 Empty Bag 1 bag @ Titrate IV .Q0M [facility] Rx#: [id number] Oral 440 Output: Chest Tube Drainage 135 Left Pleural 75 Mediastinal 60 Urine 950 Estimated Blood Loss 500 Other: Voiding Method Toilet Toilet Indwelling Catheter # Voids 2 2 ABP, PAP, CO, CI - Last Documented Arterial Blood Pressure 117/56 Pulmonary Artery Pressure 30/18 Cardiac Output 5.7 Cardiac Index 2.7 - Labs CBC & Chem 7: 07/24/24 16:55 07/24/24 15:15 Labs: Abnormal Lab Results - Last 24 Hours (Table) 07/23/24 07/23/24 07/24/24 Range/Units 06:47 16:54 15:15 WBC 11.8 H (3.8-10.6) k/uL RBC 3.37 L (4.30-5.90) m/uL Hgb 10.1 L (13.0-17.5) gm/dL Hct 31.1 L (39.0-53.0) % Neutrophils # 9.9 H (1.3-7.7) k/uL APTT 52.4 H (22.0-30.0) sec ABG pH (7.35-7.45) ABG pCO2 (35-45) mmHg ABG pO2 (83-108) mmHg ABG Total CO2 (19-24) mmol/L ABG O2 Saturation (94-97) % Chloride (98-107) mmol/L Glucose (74-99) mg/dL POC Glucose (mg/dL) (70-110) mg/dL Calcium (8.4-10.2) mg/dL Magnesium (1.6-2.3) mg/dL AST (17-59) U/L ALT (4-49) U/L Total Protein (6.3-8.2) g/dL Albumin (3.5-5.0) g/dL Crossmatch See Detail 07/24/24 07/24/24 07/24/24 Range/Units 15:15 15:42 15:43 WBC (3.8-10.6) k/uL RBC (4.30-5.90) m/uL Hgb (13.0-17.5) gm/dL Hct (39.0-53.0) % Neutrophils # (1.3-7.7) k/uL APTT (22.0-30.0) sec ABG pH 7.32 L (7.35-7.45) ABG pCO2 47 H (35-45) mmHg ABG pO2 141 H (83-108) mmHg ABG Total CO2 25 H (19-24) mmol/L ABG O2 Saturation 99.3 H (94-97) % Chloride 115 H (98-107) mmol/L Glucose 104 H (74-99) mg/dL POC Glucose (mg/dL) 123 H (70-110) mg/dL Calcium 8.1 L (8.4-10.2) mg/dL Magnesium 2.5 H (1.6-2.3) mg/dL AST 90 H (17-59) U/L ALT 58 H (4-49) U/L Total Protein 4.4 L (6.3-8.2) g/dL Albumin 2.5 L (3.5-5.0) g/dL Crossmatch 07/24/24 07/24/24 Range/Units 16:55 16:57 WBC 13.9 H (3.8-10.6) k/uL RBC 3.69 L (4.30-5.90) m/uL Hgb 11.4 L (13.0-17.5) gm/dL Hct 33.8 L (39.0-53.0) % Neutrophils # 12.3 H (1.3-7.7) k/uL APTT (22.0-30.0) sec ABG pH (7.35-7.45) ABG pCO2 (35-45) mmHg ABG pO2 (83-108) mmHg ABG Total CO2 (19-24) mmol/L ABG O2 Saturation (94-97) % Chloride (98-107) mmol/L Glucose (74-99) mg/dL POC Glucose (mg/dL) 132 H (70-110) mg/dL Calcium (8.4-10.2) mg/dL Magnesium (1.6-2.3) mg/dL AST (17-59) U/L ALT (4-49) U/L Total Protein (6.3-8.2) g/dL Albumin (3.5-5.0) g/dL Crossmatch Microbiology - Last 24 Hours (Table) 07/22/24 14:36 Nasal Screen MRSA/MSSA - Final Nasopharyngeal Swab
[2024-07-24 18:41] LABS: ABG Base Excess -2.8 mmol/L; ABG HCO3 22 mmol/L (21-25); ABG PCO2 35 mmHg (35-45); ABG PO2 115 mmHg (83-108); ABG TCO2 23 mmol/L (19-24)
[2024-07-24 18:55] LABS: Glucose,Whole Blood 122 mg/dL (70-110)
[2024-07-24 20:00] LABS: Glucose,Whole Blood 127 mg/dL (70-110)
[2024-07-24 20:10] LABS: Basophils % (A) 0 %; Eosinophils % (A) 0 %; HCT 32.6 % (39.0-53.0); HGB 10.7 gm/dL (13.0-17.5); Lymphocytes # (A) 0.5 k/uL (1.0-4.8); Lymphocytes % (A) 4 %; MCH 30.5 pg (25.0-35.0); MCHC 32.9 g/dL (31.0-37.0); MCV 92.7 fL (80.0-100.0); Mean Platelet Volume 9.2; Monocytes # (A) 0.4 k/uL (0-1.0); Monocytes % (A) 3 %; Neutrophils # (A) 12.5 k/uL (1.3-7.7); Neutrophils % (A) 92 %; Platelet Count 242 k/uL (150-450); RBC 3.52 m/uL (4.30-5.90); RDW 13.6 % (11.5-15.5); WBC 13.5 k/uL (3.8-10.6)
[2024-07-24 20:54] LABS: Glucose,Whole Blood 121 mg/dL (70-110)
[2024-07-24 21:57] LABS: Glucose,Whole Blood 134 mg/dL (70-110)
--- NOTE | 2024-07-24 22:17 | OP ---
OPERATIVE REPORT DATE OF SERVICE : 07/24/2024 PREOPERATIVE DIAGNOSIS: Coronary artery disease. POSTOPERATIVE DIAGNOSIS: Coronary artery disease. PROCEDURES: 1. Coronary artery bypass grafting x5 vessels (left internal mammary artery to left anterior descending artery, radial artery to obtuse marginal artery, saphenous vein graft to diagonal artery, saphenous vein graft to posterior descending artery, saphenous vein graft to posterior lateral branch of right coronary artery). 2. Endoscopic harvest of left radial artery. 3. Endoscopic harvest of bilateral greater saphenous veins. 4. Ligation of left atrial appendage using 35 mm AtriClip. 5. Epiaortic ultrasound. 6. Transesophageal echocardiogram. 7. Graft flow measurements using [employer] system. ASSISTANTS: 1. Edgar Scott NP. 2. FEDERICO Villagran. ANESTHESIA: General. SPECIMENS: None. COMPLICATION: None. INDICATION: The patient is a 64-year-old male with a past medical history significant for hypertension, hyperlipidemia, prostate cancer, and a remote history of tobacco use, who presented to the emergency department with chest pain radiating to the left upper extremity. Workup revealed a non-ST elevation myocardial infarction. Cardiac catheterization was performed and revealed multivessel coronary artery disease. A coronary artery bypass was recommended. The risks, benefits, and alternatives of the procedure were discussed with the patient. All of his questions were answered. Consent was obtained. FINDINGS: The left internal mammary artery was a good conduit with brisk flow. The saphenous vein was a good conduit. The radial artery was a good conduit. The LAD measured 1.5 mm. The diagonal artery contained calcific disease and measured 1.3 mm. The obtuse marginal artery was intramuscular in location and measured 1.5 mm. The PDA measured 1.3 mm. The PLB measured 1.0 mm. PROCEDURE IN DETAIL: The patient was taken to the operating room and placed supine on the operating table. After the induction of general anesthesia, he was prepped and draped in the usual sterile fashion. Preoperative transesophageal echocardiogram confirmed a preserved ejection fraction with no significant valvular pathology. A median sternotomy was performed. The left internal mammary artery was harvested in the standard fashion, taking care to clip all branches. Intravenous heparin was administered and the vessel was transected distally revealing brisk flow. Simultaneously, radial artery was harvested from the left upper extremity using endoscopic technique. In addition, saphenous vein was harvested from the left lower extremity using endoscopic technique. Above the knee it became quite large in diameter. For this reason, additional vein was harvested from the right lower extremity. It was mainly taken from below the knee. Again, above the knee, the vein was quite large. All branches were tied. A pericardial cradle was created. The ascending aorta was palpated. There was no significant calcific plaque noted. Epiaortic ultrasound was then performed on the ascending aorta. Again, no calcific plaque or atheromatous disease was identified. An arterial cannula was placed in the distal ascending aorta. A venous cannula was placed through the right atrial appendage and directed into the IVC. Both antegrade and retrograde catheters were placed as well. The patient was then placed on cardiopulmonary bypass with good decompression of the heart. The aortic cross- clamp was applied. Cold blood potassium cardioplegia was delivered in both antegrade and retrograde fashion to achieve arrest of the heart. Of note, cardioplegia was delivered every 15-20 minutes while the patient remained under crossclamp. I began by identifying the left atrial appendage. There was no clot noted based on preoperative transesophageal cardiogram. A 35 mm AtriClip was placed across its base to ensure ligation. Next, attention was turned to the inferior wall. Both the PDA and PLB branches were identified. A small arteriotomy was created in the PDA. Using saphenous vein in reverse fashion, an end-to-side anastomosis was created. This was performed using a running 7-0 Prolene suture. The graft was hemostatic and had great flow. The PLB was then dissected free. It was subtotally occluded on the preoperative angiogram. It was small in diameter, but I felt it would be amenable for bypass. An arteriotomy was created. This vessel barely accepted a 1.0 mm probe. Using saphenous vein in a reverse fashion, an end-to-side anastomosis was created. This was performed using a running 7-0 Prolene suture. The graft was hemostatic. Next, attention was turned to the lateral wall. The high obtuse marginal artery was identified. It was dissected free in an intramuscular position. A small arteriotomy was created. Using the radial artery, an end-to-side anastomosis was created. This was performed using running 7-0 Prolene suture. The graft was hemostatic and had a great flow. Next, attention was turned to the anterior wall. The diagonal artery was identified. It contained diffuse calcific disease. A soft spot amenable for bypass was noted just proximal to the distal bifurcation. A small arteriotomy was created. Using saphenous vein in reverse fashion, an end-to-side anastomosis was created. This was performed using a running 7-0 Prolene suture. The graft was hemostatic and had great flow. Finally, the left anterior descending artery was identified in its midportion and contained calcific disease. I dissected it out further distally where it became softer. A small arteriotomy was created here. Using the left internal mammary artery, an end-to-side anastomosis was created. This was performed using a running 8-0 Prolene suture. The graft was hemostatic. The mammary pedicle was then tacked down to the anterior surface of the heart. Attention was then turned to the proximal anastomoses. These were all performed in an end-to-side fashion using running 6-0 Prolene suture. 1 L of warm blood was delivered in retrograde fashion. Both lidocaine and magnesium were administered as well. The aortic cross-clamp was removed. The vein grafts were de-aired in the standard fashion. Distal anastomoses were inspected and appeared to be hemostatic. Temporary atrial and ventricular pacing wires were placed and brought through the skin. The patient was then weaned off cardiopulmonary bypass. He without difficulty. Followup transesophageal echocardiogram confirmed good left ventricular ejection fraction with movement of all villar. There was no valvular pathology. Graft flow measurements were performed using the [employer] system. The [place] to LAD graft had a flow of 42 mL/minute and a PI of 2.2. The vein graft to the diagonal artery had a flow of 55 mL/minute and a PI of 2.0. The radial artery to obtuse marginal artery had a flow of 47 mL/minute and a PI of 3.4. The vein graft to the PDA had a flow of 53 mL/minute and a PI of 1.8. There was flow noted within the vein graft to the PLB, but it was less than 10 mL/minute and the PI was elevated. Protamine was administered. There were no adverse reactions. The remaining cannulas were removed. The mediastinum was then copiously irrigated with warm saline solution. Again all surgical sites were inspected and appeared to be hemostatic. Soft tissue was reapproximated over the ascending aorta as well as over the majority of the heart. Chest tubes were placed in both the left pleural space and the mediastinum. These were secured to the skin using sutures. The right pleural space was opened slightly. The sternum was then reapproximated using the [place] [employer]. The cables were placed in a [id number] fashion. At the completion of the closure, the sternum was well aligned. The remainder of the wound was closed in layers. Sterile dressing was applied. The patient appeared to tolerate the procedure well. There were no immediate complications. He returned to the ICU in stable, but critical condition. He did not receive any intraoperative blood products. MMRAUL / IJN: [id number] / BONNIE
[2024-07-24 22:57] LABS: Glucose,Whole Blood 132 mg/dL (70-110)
[2024-07-25 00:04] LABS: Glucose,Whole Blood 137 mg/dL (70-110)
[2024-07-25 00:58] LABS: Glucose,Whole Blood 133 mg/dL (70-110)
[2024-07-25 01:58] LABS: Glucose,Whole Blood 131 mg/dL (70-110)
[2024-07-25 02:59] LABS: Glucose,Whole Blood 129 mg/dL (70-110)
[2024-07-25 03:57] LABS: Glucose,Whole Blood 127 mg/dL (70-110)
[2024-07-25 04:16] LABS: Ionized Calcium 4.8 mg/dL (4.5-5.3)
[2024-07-25 04:24] LABS: ALT 63 U/L (4-49); AST 91 U/L (17-59); African American GFR (CKD) >90 (>60 ml/min/1.73 sqM); Albumin 2.8 g/dL (3.5-5.0); Alkaline Phosphatase 51 U/L (38-126); Anion Gap 4 mmol/L; Blood Urea Nitrogen 13 mg/dL (9-20); Calcium 8.6 mg/dL (8.4-10.2); Carbon Dioxide 20 mmol/L (22-30); Chloride 113 mmol/L (98-107); Glucose 113 mg/dL (74-99); Non-African American GFR(CKD) >90 (>60 ml/min/1.73 sqM); Potassium 4.2 mmol/L (3.5-5.1); Sodium 137 mmol/L (137-145); Total Bilirubin 0.6 mg/dL (0.2-1.3); Total Protein 4.8 g/dL (6.3-8.2)
[2024-07-25 04:48] LABS: Basophils % (A) 0 %; Eosinophils % (A) 0 %; HCT 30.4 % (39.0-53.0); HGB 10.2 gm/dL (13.0-17.5); Lymphocytes # (A) 0.6 k/uL (1.0-4.8); Lymphocytes % (A) 5 %; MCH 30.9 pg (25.0-35.0); MCHC 33.6 g/dL (31.0-37.0); Mean Platelet Volume 8.4; Monocytes # (A) 0.4 k/uL (0-1.0); Monocytes % (A) 3 %; Neutrophils # (A) 10.9 k/uL (1.3-7.7); Neutrophils % (A) 91 %; Platelet Count 221 k/uL (150-450); RBC 3.31 m/uL (4.30-5.90); WBC 11.9 k/uL (3.8-10.6)
[2024-07-25 05:28] LABS: Glucose,Whole Blood 126 mg/dL (70-110)
[2024-07-25 06:51] LABS: Glucose,Whole Blood 128 mg/dL (70-110)
[2024-07-25] MEDS: METOCLOPRAMIDE 5 MG/ML 2 ML VIAL IVP PRN (07:08)
[2024-07-25 08:19] LABS: Glucose,Whole Blood 178 mg/dL (70-110)
--- NOTE | 2024-07-25 08:20 | XR ---
EXAMINATION TYPE: XR chest 1V portable DATE OF EXAM: 07/25/2024 5:49 AM CLINICAL INDICATION: Male, 64 years old with history of Post Operative Cardiac Surgery; [facility] COMPARISON: Chest radiograph from one day prior. TECHNIQUE: XR chest 1V portable Frontal view of the chest. FINDINGS: Lungs/Pleura: Low lung volumes are present. There is no evidence of pleural effusion, focal consolida tion, or pneumothorax. Pulmonary vascularity: Unremarkable. Heart/mediastinum: Cardiomediastinal silhouette is unremarkable. Left atrial appendage occlusion shanika ce is present. Musculoskeletal: No acute osseous pathology. Midline sternotomy wires are noted. Other findings: None Lines/Tubes: Interval removal of the endotracheal tube. Interval removal of the enteric tube, There is a Raphine-Konrad catheter with tip projecting over the spine. Left thoracotomy tube is present without evidence of pneumothorax. Drainage tubes with tips projecting over the mediastinum. IMPRESSION: 1. Removal of endotracheal nasogastric tubes. 2. Low lung volumes with mild pulmonary edema. [facility], , 07/25/2024 8:18 AM
--- NOTE | 2024-07-25 08:37 | P.PN ---
Subjective Progress Note Date: 07/25/24 Principal diagnosis: Coronary artery disease, non-STEMI this admission. Past medical history of hypertension, hyperlipidemia, prostate cancer in the process of getting radiation therapy, previous tobacco dependence, and daily wine usage. POD #1 coronary artery bypass grafting x 5 vessels (left internal mammary artery to the left anterior descending coronary artery, radial artery to the obtuse marginal coronary artery, saphenous vein graft to the diagonal coronary artery, saphenous vein graft to the posterior descending coronary artery, saphenous vein graft to the posterior lateral branch of the right coronary artery), endoscopic harvest left radial artery, endoscopic harvest of bilateral greater saphenous veins, ligation of left atrial appendage using a 35mm ArtiClip, intraoperative epiaortic ultrasound, graft flow measurements using the VoltServer system, intraoperative transesophageal echocardiogram completed by anesthesia. Acute blood loss anemia, expected given hemodilution and cardiopulmonary bypass. The patient was seen and examined in follow-up today July 25, 2024 at his bedside in the intensive care unit. He was successfully extubated at 6:36 PM la evening, is currently on room air with oxygen saturations 93% and he is achieving 1250 to 1500 mL on his incentive spirometry with encouragement. He is sitting up to the bedside chair, is awake, alert, oriented x 3 and is in no acute apparent distress. Denies any complaints of shortness of breath at this time, although is complaining of some surgical type pain to his chest tube insertion sites and with taking deep breaths, currently rating his pain 4-5 out of 10 on the pain scale. Bedside telemetry is showing normal sinus rhythm heart rate 81 bpm. Atrial and ventricular epicardial pacemaker wires remain in place and are currently on a VVI backup at 60 bpm connected to backup pacemaker generator. Right IJ cordis and Cooks-Konrad catheter remains in place, current hemodynamics are showing a cardiac output 4.3, cardiac index 2.0, PA pressures 32/9, CVP 6 mmHg and SVR 1133. Mediastinal and left pleural chest tubes remain in place to low continuous wall suction -20 cm H2O. No air leak is present. Mediastinal chest tube draining thin serosanguineous drainage with 80 mL output in the last 8 hours and 250 mL output since surgery. Left pleural chest tube drained 40 mL output in the last 8 hours and 170 mL output since surgery. Left arm BENI drain in place draining scant serosanguineous drainage with 15 mL output since surgery. Laboratory and chest x-ray results reviewed. Objective - Vital Signs Vital signs: Vital Signs Temp 97.3 F L 07/24/24 16:00 Pulse 81 07/25/24 08:11 Resp 12 07/25/24 07:00 BP 144/82 07/24/24 06:48 Pulse Ox 92 L 07/25/24 08:11 FiO2 21 07/25/24 08:11 Intake & Output 07/24/24 07/25/24 07/25/24 18:59 06:59 18:59 Intake Total 615.666 9391.978 Output Total 1855 720 Balance -8658.246 2919.978 Weight 94.7 kg Intake: IV 618 1498 ACETAMINOPHEN IV (For NPO 100 500 ) 1,000 mg In Empty Bag 1 bag @ 400 mls/hr IVPB Q6H [facility] Rx#:[id number] CO/CI 120 240 Pressure Bag 45 108 Sodium Chloride 0.9% 1, 250 600 000 ml @ 50 mls/hr IV . Q20H [facility] Rx#:[id number] ceFAZolin 2 gm In Sodium 50 50 Chloride 0.9% 50 ml @ 100 mls/hr IVPB ONCE ONE Rx# :[id number] Intake, IV Titration 44.502 1.978 Amount Clevidipine Butyrate 25 19.067 mg In Empty Bag 1 bag @ 1 MG/HR 2 mls/hr IV .Q24H [facility] Rx#:[id number] Insulin Regular 100 unit 1.801 1.978 In Sodium Chloride 0.9% 100 ml @ Per Protocol IV .Q0M [facility]YS Rx#:[id number] propofoL 1,000 mg In 23.634 Empty Bag 1 bag @ Titrate IV .Q0M KRYS Rx#: [id number] Oral 800 Output: Chest Tube Drainage 230 220 Left Pleural 115 60 Mediastinal 115 160 Drainage 15 Left Forearm 15 Urine 1125 485 Estimated Blood Loss 500 Other: Voiding Method Indwelling Catheter Indwelling Catheter ABP, PAP, CO, CI - Last Documented Arterial Blood Pressure 115/54 Pulmonary Artery Pressure 31/12 Cardiac Output 5 Cardiac Index 2.4 - Exam CONSTITUTIONAL: Sitting up to the bedside chair in the intensive care unit, ap pears comfortable, cooperative, no apparent acute distress. HEENT: Neck is supple, no JVD, no lymphadenopathy. Right IJ Cordis and Cooks- Konrad catheter in place and functioning. RESPIRATORY: Lungs sounds essentially clear throughout, diminished to his bilateral bases. Respirations are symmetrical and nonlabored. Currently on room air with oxygen saturations 93%. Able to achieve 1250 mL to 1500 mL mL on his incentive spirometry. Strong cough. CARDIOVASCULAR: Regular rhythm and rate. S1 and S2 present, negative for S3, gallop or murmur. Sternum is stable. Palpable peripheral pulses bilaterally. No calf pain or tenderness noted. Heart hugger in place with patient demonstrating appropriate use. Knee-high ALEJANDRINA hose and sequential compression devices in place to his bilateral lower extremities. GASTROINTESTINAL: Abdomen soft, nontender, nondistended. Hypoactive bowel sounds present 4 quadrants. Tolerating clear liquid diet. Passing flatus. No guarding or rigidity. GENITOURINARY: Doyle present draining clear, yellow urine. Urine output 300 mL in the last 8 hours. INTEGUMENTARY: Skin is warm and dry with no evidence of clubbing or cyanosis. Midline sternal incision clean dry and well approximated, covered with dry intact dressing. Bilateral lower extremity EVH sites well approximated without redness or drainage. Left arm radial artery harvest sites clean, dry and approximated. No drainage or redness is present. NEUROLOGIC: Cranial nerves II through XII intact. No focal deficits. MUSKULOSKELETAL: Able to move all extremities, strength equal bilaterally, ge neralized weakness. PSYCHIATRIC: Alert and oriented to person place and time, appropriate affect, i ntact judgment and insight. INVASIVE LINES AND TUBES: Mediastinal/left pleural chest tubes present and connected to low continuous wall suction, no air leaks present. Mediastinal tube with 80 mL of thin serosanguineous drainage overnight, 250 mL output in the last 24 hours. Left pleural chest tube with 40 mL of thin serosanguineous drainage overnight, 170 mL output in the last 24 hours. Atrial and ventricular epicardial pacemaker wires present, connected to generator, VVI backup rate 60 bpm. Right internal jugular Cooks/Cordis, right radial arterial line present. Last CO 4.3, CI 2.0, PA 32/9 and CVP 6 mmHg. Left arm BENI drain in place with scant thin serosanguineous drainage, 15 mL output since surgery. - Allied health notes Allied health notes reviewed: nursing - Labs CBC & Chem 7: 07/25/24 03:55 07/25/24 03:55 Labs: Abnormal Lab Results - Last 24 Hours (Table) 07/23/24 07/24/24 07/24/24 Range/Units 06:47 15:15 15:15 WBC 11.8 H (3.8-10.6) k/uL RBC 3.37 L (4.30-5.90) m/uL Hgb 10.1 L (13.0-17.5) gm/dL Hct 31.1 L (39.0-53.0) % Neutrophils # 9.9 H (1.3-7.7) k/uL Lymphocytes # (1.0-4.8) k/uL ABG pH (7.35-7.45) ABG pCO2 (35-45) mmHg ABG pO2 (83-108) mmHg ABG Total CO2 (19-24) mmol/L ABG O2 Saturation (94-97) % Chloride 115 H (98-107) mmol/L Carbon Dioxide (22-30) mmol/L Glucose 104 H (74-99) mg/dL POC Glucose (mg/dL) (70-110) mg/dL Calcium 8.1 L (8.4-10.2) mg/dL Magnesium 2.5 H (1.6-2.3) mg/dL AST 90 H (17-59) U/L ALT 58 H (4-49) U/L Total Protein 4.4 L (6.3-8.2) g/dL Albumin 2.5 L (3.5-5.0) g/dL Crossmatch See Detail 07/24/24 07/24/24 07/24/24 Range/Units 15:42 15:43 16:55 WBC 13.9 H (3.8-10.6) k/uL RBC 3.69 L (4.30-5.90) m/uL Hgb 11.4 L (13.0-17.5) gm/dL Hct 33.8 L (39.0-53.0) % Neutrophils # 12.3 H (1.3-7.7) k/uL Lymphocytes # (1.0-4.8) k/uL ABG pH 7.32 L (7.35-7.45) ABG pCO2 47 H (35-45) mmHg ABG pO2 141 H (83-108) mmHg ABG Total CO2 25 H (19-24) mmol/L ABG O2 Saturation 99.3 H (94-97) % Chloride (98-107) mmol/L Carbon Dioxide (22-30) mmol/L Glucose (74-99) mg/dL POC Glucose (mg/dL) 123 H (70-110) mg/dL Calcium (8.4-10.2) mg/dL Magnesium (1.6-2.3) mg/dL AST (17-59) U/L ALT (4-49) U/L Total Protein (6.3-8.2) g/dL Albumin (3.5-5.0) g/dL Crossmatch 07/24/24 07/24/24 07/24/24 Range/Units 16:57 18:01 18:24 WBC (3.8-10.6) k/uL RBC (4.30-5.90) m/uL Hgb (13.0-17.5) gm/dL Hct (39.0-53.0) % Neutrophils # (1.3-7.7) k/uL Lymphocytes # (1.0-4.8) k/uL ABG pH (7.35-7.45) ABG pCO2 (35-45) mmHg ABG pO2 115 H (83-108) mmHg ABG Total CO2 (19-24) mmol/L ABG O2 Saturation 99.0 H (94-97) % Chloride (98-107) mmol/L Carbon Dioxide (22-30) mmol/L Glucose (74-99) mg/dL POC Glucose (mg/dL) 132 H 135 H (70-110) mg/dL Calcium (8.4-10.2) mg/dL Magnesium (1.6-2.3) mg/dL AST (17-59) U/L ALT (4-49) U/L Total Protein (6.3-8.2) g/dL Albumin (3.5-5.0) g/dL Crossmatch 07/24/24 07/24/24 07/24/24 Range/Units 18:54 19:55 19:58 WBC 13.5 H (3.8-10.6) k/uL RBC 3.52 L (4.30-5.90) m/uL Hgb 10.7 L (13.0-17.5) gm/dL Hct 32.6 L (39.0-53.0) % Neutrophils # 12.5 H (1.3-7.7) k/uL Lymphocytes # 0.5 L (1.0-4.8) k/uL ABG pH (7.35-7.45) ABG pCO2 (35-45) mmHg ABG pO2 (83-108) mmHg ABG Total CO2 (19-24) mmol/L ABG O2 Saturation (94-97) % Chloride (98-107) mmol/L Carbon Dioxide (22-30) mmol/L Glucose (74-99) mg/dL POC Glucose (mg/dL) 122 H 127 H (70-110) mg/dL Calcium (8.4-10.2) mg/dL Magnesium (1.6-2.3) mg/dL AST (17-59) U/L ALT (4-49) U/L Total Protein (6.3-8.2) g/dL Albumin (3.5-5.0) g/dL Crossmatch 07/24/24 07/24/24 07/24/24 Range/Units 20:52 21:56 22:55 WBC (3.8-10.6) k/uL RBC (4.30-5.90) m/uL Hgb (13.0-17.5) gm/dL Hct (39.0-53.0) % Neutrophils # (1.3-7.7) k/uL Lymphocytes # (1.0-4.8) k/uL ABG pH (7.35-7.45) ABG pCO2 (35-45) mmHg ABG pO2 (83-108) mmHg ABG Total CO2 (19-24) mmol/L ABG O2 Saturation (94-97) % Chloride (98-107) mmol/L Carbon Dioxide (22-30) mmol/L Glucose (74-99) mg/dL POC Glucose (mg/dL) 121 H 134 H 132 H (70-110) mg/dL Calcium (8.4-10.2) mg/dL Magnesium (1.6-2.3) mg/dL AST (17-59) U/L ALT (4-49) U/L Total Protein (6.3-8.2) g/dL Albumin (3.5-5.0) g/dL Crossmatch 07/25/24 07/25/24 07/25/24 Range/Units 00:01 00:56 01:56 WBC (3.8-10.6) k/uL RBC (4.30-5.90) m/uL Hgb (13.0-17.5) gm/dL Hct (39.0-53.0) % Neutrophils # (1.3-7.7) k/uL Lymphocytes # (1.0-4.8) k/uL ABG pH (7.35-7.45) ABG pCO2 (35-45) mmHg ABG pO2 (83-108) mmHg ABG Total CO2 (19-24) mmol/L ABG O2 Saturation (94-97) % Chloride (98-107) mmol/L Carbon Dioxide (22-30) mmol/L Glucose (74-99) mg/dL POC Glucose (mg/dL) 137 H 133 H 131 H (70-110) mg/dL Calcium (8.4-10.2) mg/dL Magnesium (1.6-2.3) mg/dL AST (17-59) U/L ALT (4-49) U/L Total Protein (6.3-8.2) g/dL Albumin (3.5-5.0) g/dL Crossmatch 07/25/24 07/25/24 07/25/24 Range/Units 02:56 03:55 03:55 WBC 11.9 H (3.8-10.6) k/uL RBC 3.31 L (4.30-5.90) m/uL Hgb 10.2 L (13.0-17.5) gm/dL Hct 30.4 L (39.0-53.0) % Neutrophils # 10.9 H (1.3-7.7) k/uL Lymphocytes # 0.6 L (1.0-4.8) k/uL ABG pH (7.35-7.45) ABG pCO2 (35-45) mmHg ABG pO2 (83-108) mmHg ABG Total CO2 (19-24) mmol/L ABG O2 Saturation (94-97) % Chloride 113 H (98-107) mmol/L Carbon Dioxide 20 L (22-30) mmol/L Glucose 113 H (74-99) mg/dL POC Glucose (mg/dL) 129 H (70-110) mg/dL Calcium (8.4-10.2) mg/dL Magnesium (1.6-2.3) mg/dL AST 91 H (17-59) U/L ALT 63 H (4-49) U/L Total Protein 4.8 L (6.3-8.2) g/dL Albumin 2.8 L (3.5-5.0) g/dL Crossmatch 07/25/24 07/25/24 07/25/24 Range/Units 03:55 05:26 06:49 WBC (3.8-10.6) k/uL RBC (4.30-5.90) m/uL Hgb (13.0-17.5) gm/dL Hct (39.0-53.0) % Neutrophils # (1.3-7.7) k/uL Lymphocytes # (1.0-4.8) k/uL ABG pH (7.35-7.45) ABG pCO2 (35-45) mmHg ABG pO2 (83-108) mmHg ABG Total CO2 (19-24) mmol/L ABG O2 Saturation (94-97) % Chloride (98-107) mmol/L Carbon Dioxide (22-30) mmol/L Glucose (74-99) mg/dL POC Glucose (mg/dL) 127 H 126 H 128 H (70-110) mg/dL Calcium (8.4-10.2) mg/dL Magnesium (1.6-2.3) mg/dL AST (17-59) U/L ALT (4-49) U/L Total Protein (6.3-8.2) g/dL Albumin (3.5-5.0) g/dL Crossmatch 07/25/24 Range/Units 08:17 WBC (3.8-10.6) k/uL RBC (4.30-5.90) m/uL Hgb (13.0-17.5) gm/dL Hct (39.0-53.0) % Neutrophils # (1.3-7.7) k/uL Lymphocytes # (1.0-4.8) k/uL ABG pH (7.35-7.45) ABG pCO2 (35-45) mmHg ABG pO2 (83-108) mmHg ABG Total CO2 (19-24) mmol/L ABG O2 Saturation (94-97) % Chloride (98-107) mmol/L Carbon Dioxide (22-30) mmol/L Glucose (74-99) mg/dL POC Glucose (mg/dL) 178 H (70-110) mg/dL Calcium (8.4-10.2) mg/dL Magnesium (1.6-2.3) mg/dL AST (17-59) U/L ALT (4-49) U/L Total Protein (6.3-8.2) g/dL Albumin (3.5-5.0) g/dL Crossmatch - Imaging and Cardiology Chest x-ray: report reviewed, image reviewed Assessment and Plan Assessment: Triple-vessel coronary artery disease, status post 5 vessel coronary artery bypass grafting surgery Non-STEMI this admission Chest pain on admission Bilateral carotid artery stenosis 50 to 69% per carotid duplex study History of hypertension Hyperlipidemia, treated, cholesterol 161, LDL 97 Previous tobacco dependence, preoperative FEV1 76% of predicted value Daily wine usage Prostate cancer, pending radiation therapy Postoperative acute blood loss anemia, expected given hemodilution and cardiopulmonary bypass Plan: Continue to maximize medical therapy with aspirin, statin, Plavix, and beta- eliud. Will increase beta-eliud therapy as tolerated. Discontinue IV nitroglycerin drip. Start amlodipine 2.5 mg p.o. daily with hold parameters for radial artery spasm prophylaxis. Encourage incentive spirometry use 10 times every hour while awake. Bronchodilators per pulmonology. Increase activity, ambulate as tolerated. PT/OT/cardiac rehab consulted. Will monitor daily labs and chest x-rays. Electrolyte replacement per protocol. GI/DVT prophylaxis. Insulin management per internal medicine, patient is not diabetic, preoperative hemoglobin A1c 5.7%. Patient should remain on IV continuous insulin for 48 hours, then transition to subcutaneous insulin per protocol Pain control per current medication regimen. Will add Toradol. Discontinue Cooks, connect Cordis to continuous CVP monitoring. Continue chest tubes for another 24 hours, monitor output. Continue Doyle catheter for another 24 hours, continue to record strict accurate intake and output. Daily weights. Keep atrial and ventricular epicardial pacemaker wires in place and connected to backup bedside pacemaker generator on a VVI of 50. More recommendations to follow based on patient's clinical course. Time with Patient: Greater than 30
[2024-07-25] MEDS: KETOROLAC 15 MG/ML 1 ML VIAL IVP SCH (08:42)
[2024-07-25] MEDS: amLODIPine 2.5 MG TAB PO SCH (08:44)
[2024-07-25] MEDS: ATORVASTATIN 40 MG TAB PO SCH (08:44)
[2024-07-25] MEDS: METOPROLOL TARTRATE 12.5 MG TAB PO SCH (08:44)
[2024-07-25] MEDS: CLOPIDOGREL 75 MG TAB PO SCH (08:44)
[2024-07-25] MEDS: ASPIRIN 325 MG TAB PO SCH (08:44)
[2024-07-25] MEDS: PANTOPRAZOLE 40 MG/10 ML VIAL IVP SCH (08:44)
[2024-07-25] MEDS ORDERED: bisacodyL 10 MG SUPP RECTAL PRN (09:00)
[2024-07-25 09:50] LABS: Glucose,Whole Blood 175 mg/dL (70-110)
[2024-07-25 10:57] LABS: Glucose,Whole Blood 151 mg/dL (70-110)
[2024-07-25] MEDS: ALBUMIN HUMAN 5% 250 ML in EMPTY BAG 1 BAG IVPB PRN (11:00)
--- NOTE | 2024-07-25 11:18 | P.PN ---
Subjective Progress Note Date: 07/25/24 Patient was seen this morning. He was sitting up in the chair. He had no acute complaints. Physical exam General examination - Alert and Oriented 3 in NAD Heart - + S1S2 no murmurs Lungs -bilateral chest tubes, heart hugger in place Abdomen soft NT ND +ve BS Extremities - No edema PROCESS PLANNER - Moving all 4 extremities spontaneously Psych - Calm and cooperative Assessment and plan Acute blood loss Hemoglobin this morning is stable at 10.2 Acute hypoxic respiratory failure Patient now on room air and he was extubated on 07/24/2024 Resolved Non-ST elevation SC Continue with ASA 325 mg PO QD. Lipitor 80 mg PO QHS Plavix 75 mg PO QD. Metoprolol 12.5 mg PO BID. Telemetry monitoring. Cardiology and CT surgery on board. Leukocytosis likely reactive Trending down Pulmonary nodules Patient will need repeat CT chest in 6 months Hypertension Controlled Continue with amlodipine 2.5 mg p.o. daily IV hydralazine 10 mg every 4 hours as needed Metoprolol 12.5 mg p.o. twice daily Hyperlipidemia Continue statin DVT prophylaxis: Subcu heparin Objective - Vital Signs Vital signs: Vital Signs Temp 99.3 F 07/25/24 08:00 Pulse 74 07/25/24 10:00 Resp 18 07/25/24 10:00 BP 144/82 07/24/24 06:48 Pulse Ox 93 L 07/25/24 10:00 FiO2 21 07/25/24 08:11 Intake & Output 07/24/24 07/25/24 07/25/24 18:59 06:59 18:59 Intake Total 541.429 8423.978 447.747 Output Total 1855 720 80 Balance -2258.899 2822.978 367.747 Weight 94.7 kg Intake: IV 618 1498 165 ACETAMINOPHEN IV (For NPO 100 500 ) 1,000 mg In Empty Bag 1 bag @ 400 mls/hr IVPB Q6H KRYS Rx#:[id number] CO/CI 120 240 Pressure Bag 45 108 15 Sodium Chloride 0.9% 1, 250 600 100 000 ml @ 50 mls/hr IV . Q20H KRYS Rx#:[id number] ceFAZolin 2 gm In Sodium 50 50 50 Chloride 0.9% 50 ml @ 100 mls/hr IVPB ONCE ONE Rx# :[id number] Intake, IV Titration 44.502 1.978 42.747 Amount Clevidipine Butyrate 25 19.067 mg In Empty Bag 1 bag @ 1 MG/HR 2 mls/hr IV .Q24H KRYS Rx#:[id number] Insulin Regular 100 unit 1.801 1.978 16.572 In Sodium Chloride 0.9% 100 ml @ Per Protocol IV .Q0M KRYS Rx#:[id number] Nitroglycerin-D5w Pmx 50 26.175 mg In Dextrose/Water 1 250ml.bag @ 5 MCG/MIN 1.5 mls/hr IV .Q24H KRYS Rx#: [id number] propofoL 1,000 mg In 23.634 Empty Bag 1 bag @ Titrate IV .Q0M KRYS Rx#: [id number] Oral 800 240 Output: Chest Tube Drainage 230 220 50 Left Pleural 115 60 10 Mediastinal 115 160 40 Drainage 15 Left Forearm 15 Urine 1125 485 30 Estimated Blood Loss 500 Other: Voiding Method Indwelling Catheter Indwelling Catheter Indwelling Catheter ABP, PAP, CO, CI - Last Documented Arterial Blood Pressure 105/49 Pulmonary Artery Pressure 44/19 Cardiac Output 5 Cardiac Index 2.4 - Labs CBC & Chem 7: 07/25/24 03:55 07/25/24 03:55 Labs: Abnormal Lab Results - Last 24 Hours (Table) 07/23/24 07/24/24 07/24/24 Range/Units 06:47 15:15 15:15 WBC 11.8 H (3.8-10.6) k/uL RBC 3.37 L (4.30-5.90) m/uL Hgb 10.1 L (13.0-17.5) gm/dL Hct 31.1 L (39.0-53.0) % Neutrophils # 9.9 H (1.3-7.7) k/uL Lymphocytes # (1.0-4.8) k/uL ABG pH (7.35-7.45) ABG pCO2 (35-45) mmHg ABG pO2 (83-108) mmHg ABG Total CO2 (19-24) mmol/L ABG O2 Saturation (94-97) % Chloride 115 H (98-107) mmol/L Carbon Dioxide (22-30) mmol/L Glucose 104 H (74-99) mg/dL POC Glucose (mg/dL) (70-110) mg/dL Calcium 8.1 L (8.4-10.2) mg/dL Magnesium 2.5 H (1.6-2.3) mg/dL AST 90 H (17-59) U/L ALT 58 H (4-49) U/L Total Protein 4.4 L (6.3-8.2) g/dL Albumin 2.5 L (3.5-5.0) g/dL Crossmatch See Detail 07/24/24 07/24/24 07/24/24 Range/Units 15:42 15:43 16:55 WBC 13.9 H (3.8-10.6) k/uL RBC 3.69 L (4.30-5.90) m/uL Hgb 11.4 L (13.0-17.5) gm/dL Hct 33.8 L (39.0-53.0) % Neutrophils # 12.3 H (1.3-7.7) k/uL Lymphocytes # (1.0-4.8) k/uL ABG pH 7.32 L (7.35-7.45) ABG pCO2 47 H (35-45) mmHg ABG pO2 141 H (83-108) mmHg ABG Total CO2 25 H (19-24) mmol/L ABG O2 Saturation 99.3 H (94-97) % Chloride (98-107) mmol/L Carbon Dioxide (22-30) mmol/L Glucose (74-99) mg/dL POC Glucose (mg/dL) 123 H (70-110) mg/dL Calcium (8.4-10.2) mg/dL Magnesium (1.6-2.3) mg/dL AST (17-59) U/L ALT (4-49) U/L Total Protein (6.3-8.2) g/dL Albumin (3.5-5.0) g/dL Crossmatch 07/24/24 07/24/24 07/24/24 Range/Units 16:57 18:01 18:24 WBC (3.8-10.6) k/uL RBC (4.30-5.90) m/uL Hgb (13.0-17.5) gm/dL Hct (39.0-53.0) % Neutrophils # (1.3-7.7) k/uL Lymphocytes # (1.0-4.8) k/uL ABG pH (7.35-7.45) ABG pCO2 (35-45) mmHg ABG pO2 115 H (83-108) mmHg ABG Total CO2 (19-24) mmol/L ABG O2 Saturation 99.0 H (94-97) % Chloride (98-107) mmol/L Carbon Dioxide (22-30) mmol/L Glucose (74-99) mg/dL POC Glucose (mg/dL) 132 H 135 H (70-110) mg/dL Calcium (8.4-10.2) mg/dL Magnesium (1.6-2.3) mg/dL AST (17-59) U/L ALT (4-49) U/L Total Protein (6.3-8.2) g/dL Albumin (3.5-5.0) g/dL Crossmatch 07/24/24 07/24/24 07/24/24 Range/Units 18:54 19:55 19:58 WBC 13.5 H (3.8-10.6) k/uL RBC 3.52 L (4.30-5.90) m/uL Hgb 10.7 L (13.0-17.5) gm/dL Hct 32.6 L (39.0-53.0) % Neutrophils # 12.5 H (1.3-7.7) k/uL Lymphocytes # 0.5 L (1.0-4.8) k/uL ABG pH (7.35-7.45) ABG pCO2 (35-45) mmHg ABG pO2 (83-108) mmHg ABG Total CO2 (19-24) mmol/L ABG O2 Saturation (94-97) % Chloride (98-107) mmol/L Carbon Dioxide (22-30) mmol/L Glucose (74-99) mg/dL POC Glucose (mg/dL) 122 H 127 H (70-110) mg/dL Calcium (8.4-10.2) mg/dL Magnesium (1.6-2.3) mg/dL AST (17-59) U/L ALT (4-49) U/L Total Protein (6.3-8.2) g/dL Albumin (3.5-5.0) g/dL Crossmatch 07/24/24 07/24/24 07/24/24 Range/Units 20:52 21:56 22:55 WBC (3.8-10.6) k/uL RBC (4.30-5.90) m/uL Hgb (13.0-17.5) gm/dL Hct (39.0-53.0) % Neutrophils # (1.3-7.7) k/uL Lymphocytes # (1.0-4.8) k/uL ABG pH (7.35-7.45) ABG pCO2 (35-45) mmHg ABG pO2 (83-108) mmHg ABG Total CO2 (19-24) mmol/L ABG O2 Saturation (94-97) % Chloride (98-107) mmol/L Carbon Dioxide (22-30) mmol/L Glucose (74-99) mg/dL POC Glucose (mg/dL) 121 H 134 H 132 H (70-110) mg/dL Calcium (8.4-10.2) mg/dL Magnesium (1.6-2.3) mg/dL AST (17-59) U/L ALT (4-49) U/L Total Protein (6.3-8.2) g/dL Albumin (3.5-5.0) g/dL Crossmatch 07/25/24 07/25/24 07/25/24 Range/Units 00:01 00:56 01:56 WBC (3.8-10.6) k/uL RBC (4.30-5.90) m/uL Hgb (13.0-17.5) gm/dL Hct (39.0-53.0) % Neutrophils # (1.3-7.7) k/uL Lymphocytes # (1.0-4.8) k/uL ABG pH (7.35-7.45) ABG pCO2 (35-45) mmHg ABG pO2 (83-108) mmHg ABG Total CO2 (19-24) mmol/L ABG O2 Saturation (94-97) % Chloride (98-107) mmol/L Carbon Dioxide (22-30) mmol/L Glucose (74-99) mg/dL POC Glucose (mg/dL) 137 H 133 H 131 H (70-110) mg/dL Calcium (8.4-10.2) mg/dL Magnesium (1.6-2.3) mg/dL AST (17-59) U/L ALT (4-49) U/L Total Protein (6.3-8.2) g/dL Albumin (3.5-5.0) g/dL Crossmatch 07/25/24 07/25/24 07/25/24 Range/Units 02:56 03:55 03:55 WBC 11.9 H (3.8-10.6) k/uL RBC 3.31 L (4.30-5.90) m/uL Hgb 10.2 L (13.0-17.5) gm/dL Hct 30.4 L (39.0-53.0) % Neutrophils # 10.9 H (1.3-7.7) k/uL Lymphocytes # 0.6 L (1.0-4.8) k/uL ABG pH (7.35-7.45) ABG pCO2 (35-45) mmHg ABG pO2 (83-108) mmHg ABG Total CO2 (19-24) mmol/L ABG O2 Saturation (94-97) % Chloride 113 H (98-107) mmol/L Carbon Dioxide 20 L (22-30) mmol/L Glucose 113 H (74-99) mg/dL POC Glucose (mg/dL) 129 H (70-110) mg/dL Calcium (8.4-10.2) mg/dL Magnesium (1.6-2.3) mg/dL AST 91 H (17-59) U/L ALT 63 H (4-49) U/L Total Protein 4.8 L (6.3-8.2) g/dL Albumin 2.8 L (3.5-5.0) g/dL Crossmatch 07/25/24 07/25/24 07/25/24 Range/Units 03:55 05:26 06:49 WBC (3.8-10.6) k/uL RBC (4.30-5.90) m/uL Hgb (13.0-17.5) gm/dL Hct (39.0-53.0) % Neutrophils # (1.3-7.7) k/uL Lymphocytes # (1.0-4.8) k/uL ABG pH (7.35-7.45) ABG pCO2 (35-45) mmHg ABG pO2 (83-108) mmHg ABG Total CO2 (19-24) mmol/L ABG O2 Saturation (94-97) % Chloride (98-107) mmol/L Carbon Dioxide (22-30) mmol/L Glucose (74-99) mg/dL POC Glucose (mg/dL) 127 H 126 H 128 H (70-110) mg/dL Calcium (8.4-10.2) mg/dL Magnesium (1.6-2.3) mg/dL AST (17-59) U/L ALT (4-49) U/L Total Protein (6.3-8.2) g/dL Albumin (3.5-5.0) g/dL Crossmatch 07/25/24 07/25/24 07/25/24 Range/Units 08:17 09:47 10:55 WBC (3.8-10.6) k/uL RBC (4.30-5.90) m/uL Hgb (13.0-17.5) gm/dL Hct (39.0-53.0) % Neutrophils # (1.3-7.7) k/uL Lymphocytes # (1.0-4.8) k/uL ABG pH (7.35-7.45) ABG pCO2 (35-45) mmHg ABG pO2 (83-108) mmHg ABG Total CO2 (19-24) mmol/L ABG O2 Saturation (94-97) % Chloride (98-107) mmol/L Carbon Dioxide (22-30) mmol/L Glucose (74-99) mg/dL POC Glucose (mg/dL) 178 H 175 H 151 H (70-110) mg/dL Calcium (8.4-10.2) mg/dL Magnesium (1.6-2.3) mg/dL AST (17-59) U/L ALT (4-49) U/L Total Protein (6.3-8.2) g/dL Albumin (3.5-5.0) g/dL Crossmatch
[2024-07-25 11:50] VITALS: BMI 29.1
[2024-07-25 12:04] LABS: Glucose,Whole Blood 147 mg/dL (70-110)
[2024-07-25 13:42] LABS: Glucose,Whole Blood 146 mg/dL (70-110)
[2024-07-25 14:56] LABS: Glucose,Whole Blood 155 mg/dL (70-110)
--- NOTE | 2024-07-25 15:19 | P.PN ---
Subjective Progress Note Date: 07/25/24 Principal diagnosis: Triple-vessel coronary artery disease /status post CABG postoperative day #1 This is a 64-year-old male patient with known history of hypertension hyperlipi demia prostate cancer and remote history of smoking, came into the hospital because of chest pain and the patient was found to have elevated troponins and he ruled in for non-ST segment elevation myocardial infarction. Subsequent cardiac catheterization showed 90% LAD, 70% first obtuse marginal branch, subtotally occluded PLV, 70% proximal RCA and 60 to 70% mid RCA. Following that, patient was seen by cardiothoracic surgery and the patient is being considered for bypass surgery. In fact, the patient will be taken for bypass tomorrow. CAT scan of the chest was done on 07/20/2024 and showed some scattered bilateral pulmonary nodules that needs to be further monitored on outpatient basis. These are nonspecific findings. No other acute abnormalities have been noted. Echocardiogram done on 07/20/2024 preserved LV function without any significant abnormalities. The white cell count is at 7.1 with a hemoglobin 12.4 and a platelet count of 276. Electrolytes are all within normal limits. The patient is currently on room air oxygen. Is ambulating. Bedside spirometry was done and his FEV1 is in order of 76% of predicted. Patient was evaluated today 07/24/2024, patient underwent CABG, for triple-vessel coronary artery disease, brought back to the ICU intubated and mechanically vent ilated, and I am seeing him on follow-up. Patient is on assist-control rate of 12 tidal volume 500 FiO2 100% and PEEP of 5 ABG showed a pO2 of 141 pCO2 47 pH of 7.32 hence his FiO2 was cut down and his rate was increased to 14. Patient has cardiac output of 5.6, cardiac index of 2.7, patient is on multiple drips including Cleviprex at 8 mg/h, nitro at 5 mcg /min, and he is on propofol at 30 mcg/kg/min chest x-ray postoperatively showed nasogastric tube in distal esophagus, endotracheal tube above the adwoa, and no acute process noted.Cannot rule out pneumonia WBC 13.9 hemoglobin is 11.4 Patient is sedated, on propofol Patient was evaluated today on 07/25/2024, patient isPOD #1 coronary artery bypass grafting x 5 vessels (left internal mammary artery to the left anterior descending coronary artery, radial artery to the obtuse marginal coronary artery, saphenous vein graft to the diagonal coronary artery, saphenous vein graft to the posterior descending coronary artery, saphenous vein graft to the posterior lateral branch of the right coronary artery), endoscopic harvest left radial artery, patient is in the ICU, extubated last night at 6:36 PM, presently on room air, O2 sats 93%, patient is already ambulating with assistance, not requiring any inotropes or pressors, he is only on insulin drip. His cardiac output is 4.3 with a cardiac index of 2.0. Pressure 32/29 CVP of 6. Chest x- ray is showing minimal bibasilar atelectasis left more so than right, patient is achieving over 1500 cc with incentive spirometry, overall his postoperative course is uneventful Objective - Vital Signs Vital signs: Vital Signs Temp 98.2 F 07/25/24 12:00 Pulse 71 07/25/24 15:00 Resp 16 07/25/24 15:00 BP 144/82 07/24/24 06:48 Pulse Ox 94 L 07/25/24 15:00 FiO2 21 07/25/24 08:11 Intake & Output 07/24/24 07/25/24 07/25/24 18:59 06:59 18:59 Intake Total 992.335 7432.978 1257.913 Output Total 1855 720 340 Balance -4703.789 2542.978 917.913 Weight 94.7 kg 94.7 kg Intake: IV 618 1498 601 ACETAMINOPHEN IV (For NPO 100 500 100 ) 1,000 mg In Empty Bag 1 bag @ 400 mls/hr IVPB Q6H [facility] Rx#:[id number] CO/CI 120 240 Pressure Bag 45 108 51 Sodium Chloride 0.9% 1, 250 600 400 000 ml @ 50 mls/hr IV . Q20H [facility] Rx#:[id number] ceFAZolin 2 gm In Sodium 50 50 50 Chloride 0.9% 50 ml @ 100 mls/hr IVPB ONCE ONE Rx# :[id number] Intake, IV Titration 44.502 1.978 296.913 Amount Albumin Human 5% 250 ml 250 In Empty Bag 1 bag @ 250 mls/hr IVPB Q1HR PRN Rx#: [id number] Clevidipine Butyrate 25 19.067 mg In Empty Bag 1 bag @ 1 MG/HR 2 mls/hr IV .Q24H [facility] Rx#:[id number] Insulin Regular 100 unit 1.801 1.978 20.738 In Sodium Chloride 0.9% 100 ml @ Per Protocol IV .Q0M [facility] Rx#:[id number] Nitroglycerin-D5w Pmx 50 26.175 mg In Dextrose/Water 1 250ml.bag @ 5 MCG/MIN 1.5 mls/hr IV .Q24H [facility] Rx#: [id number] propofoL 1,000 mg In 23.634 Empty Bag 1 bag @ Titrate IV .Q0M [facility] Rx#: [id number] Oral 800 360 Output: Chest Tube Drainage 230 220 190 Left Pleural 115 60 70 Mediastinal 115 160 120 Drainage 15 10 Left Forearm 15 10 Urine 1125 485 140 Estimated Blood Loss 500 Other: Voiding Method Indwelling Catheter Indwelling Catheter Indwelling Catheter ABP, PAP, CO, CI - Last Documented Arterial Blood Pressure 125/52 Pulmonary Artery Pressure 44/19 Cardiac Output 5 Cardiac Index 2.4 - Exam General:: revealed a 64-year-old white male in no distress, on room air HEENT: Neck is supple, no JVD, no lymphadenopathy. RESPIRATORY: Good breath sound bilaterally no crackles rhonchi or wheezes CARDIOVASCULAR: Regular rhythm and rate. S1 and S2 present, negative for S3, gallop or murmur. GASTROINTESTINAL: Soft nontender No rebound no guarding INTEGUMENTARY: Skin is warm and dry with no evidence of clubbing or cyanosis. NEUROLOGIC: Alert oriented x 3 no gross focal deficit MUSKULOSKELETAL: No deformities noted, no limitation range of motion PSYCHIATRIC: Normal mood affect and normal mental status examination - Labs CBC & Chem 7: 07/25/24 03:55 07/25/24 03:55 Labs: Abnormal Lab Results - Last 24 Hours (Table) 07/23/24 07/24/24 07/24/24 Range/Units 06:47 15:15 15:15 WBC 11.8 H (3.8-10.6) k/uL RBC 3.37 L (4.30-5.90) m/uL Hgb 10.1 L (13.0-17.5) gm/dL Hct 31.1 L (39.0-53.0) % Neutrophils # 9.9 H (1.3-7.7) k/uL Lymphocytes # (1.0-4.8) k/uL ABG pH (7.35-7.45) ABG pCO2 (35-45) mmHg ABG pO2 (83-108) mmHg ABG Total CO2 (19-24) mmol/L ABG O2 Saturation (94-97) % Chloride 115 H (98-107) mmol/L Carbon Dioxide (22-30) mmol/L Glucose 104 H (74-99) mg/dL POC Glucose (mg/dL) (70-110) mg/dL Calcium 8.1 L (8.4-10.2) mg/dL Magnesium 2.5 H (1.6-2.3) mg/dL AST 90 H (17-59) U/L ALT 58 H (4-49) U/L Total Protein 4.4 L (6.3-8.2) g/dL Albumin 2.5 L (3.5-5.0) g/dL Crossmatch See Detail 07/24/24 07/24/24 07/24/24 Range/Units 15:42 15:43 16:55 WBC 13.9 H (3.8-10.6) k/uL RBC 3.69 L (4.30-5.90) m/uL Hgb 11.4 L (13.0-17.5) gm/dL Hct 33.8 L (39.0-53.0) % Neutrophils # 12.3 H (1.3-7.7) k/uL Lymphocytes # (1.0-4.8) k/uL ABG pH 7.32 L (7.35-7.45) ABG pCO2 47 H (35-45) mmHg ABG pO2 141 H (83-108) mmHg ABG Total CO2 25 H (19-24) mmol/L ABG O2 Saturation 99.3 H (94-97) % Chloride (98-107) mmol/L Carbon Dioxide (22-30) mmol/L Glucose (74-99) mg/dL POC Glucose (mg/dL) 123 H (70-110) mg/dL Calcium (8.4-10.2) mg/dL Magnesium (1.6-2.3) mg/dL AST (17-59) U/L ALT (4-49) U/L Total Protein (6.3-8.2) g/dL Albumin (3.5-5.0) g/dL Crossmatch 07/24/24 07/24/24 07/24/24 Range/Units 16:57 18:01 18:24 WBC (3.8-10.6) k/uL RBC (4.30-5.90) m/uL Hgb (13.0-17.5) gm/dL Hct (39.0-53.0) % Neutrophils # (1.3-7.7) k/uL Lymphocytes # (1.0-4.8) k/uL ABG pH (7.35-7.45) ABG pCO2 (35-45) mmHg ABG pO2 115 H (83-108) mmHg ABG Total CO2 (19-24) mmol/L ABG O2 Saturation 99.0 H (94-97) % Chloride (98-107) mmol/L Carbon Dioxide (22-30) mmol/L Glucose (74-99) mg/dL POC Glucose (mg/dL) 132 H 135 H (70-110) mg/dL Calcium (8.4-10.2) mg/dL Magnesium (1.6-2.3) mg/dL AST (17-59) U/L ALT (4-49) U/L Total Protein (6.3-8.2) g/dL Albumin (3.5-5.0) g/dL Crossmatch 07/24/24 07/24/24 07/24/24 Range/Units 18:54 19:55 19:58 WBC 13.5 H (3.8-10.6) k/uL RBC 3.52 L (4.30-5.90) m/uL Hgb 10.7 L (13.0-17.5) gm/dL Hct 32.6 L (39.0-53.0) % Neutrophils # 12.5 H (1.3-7.7) k/uL Lymphocytes # 0.5 L (1.0-4.8) k/uL ABG pH (7.35-7.45) ABG pCO2 (35-45) mmHg ABG pO2 (83-108) mmHg ABG Total CO2 (19-24) mmol/L ABG O2 Saturation (94-97) % Chloride (98-107) mmol/L Carbon Dioxide (22-30) mmol/L Glucose (74-99) mg/dL POC Glucose (mg/dL) 122 H 127 H (70-110) mg/dL Calcium (8.4-10.2) mg/dL Magnesium (1.6-2.3) mg/dL AST (17-59) U/L ALT (4-49) U/L Total Protein (6.3-8.2) g/dL Albumin (3.5-5.0) g/dL Crossmatch 07/24/24 07/24/24 07/24/24 Range/Units 20:52 21:56 22:55 WBC (3.8-10.6) k/uL RBC (4.30-5.90) m/uL Hgb (13.0-17.5) gm/dL Hct (39.0-53.0) % Neutrophils # (1.3-7.7) k/uL Lymphocytes # (1.0-4.8) k/uL ABG pH (7.35-7.45) ABG pCO2 (35-45) mmHg ABG pO2 (83-108) mmHg ABG Total CO2 (19-24) mmol/L ABG O2 Saturation (94-97) % Chloride (98-107) mmol/L Carbon Dioxide (22-30) mmol/L Glucose (74-99) mg/dL POC Glucose (mg/dL) 121 H 134 H 132 H (70-110) mg/dL Calcium (8.4-10.2) mg/dL Magnesium (1.6-2.3) mg/dL AST (17-59) U/L ALT (4-49) U/L Total Protein (6.3-8.2) g/dL Albumin (3.5-5.0) g/dL Crossmatch 07/25/24 07/25/24 07/25/24 Range/Units 00:01 00:56 01:56 WBC (3.8-10.6) k/uL RBC (4.30-5.90) m/uL Hgb (13.0-17.5) gm/dL Hct (39.0-53.0) % Neutrophils # (1.3-7.7) k/uL Lymphocytes # (1.0-4.8) k/uL ABG pH (7.35-7.45) ABG pCO2 (35-45) mmHg ABG pO2 (83-108) mmHg ABG Total CO2 (19-24) mmol/L ABG O2 Saturation (94-97) % Chloride (98-107) mmol/L Carbon Dioxide (22-30) mmol/L Glucose (74-99) mg/dL POC Glucose (mg/dL) 137 H 133 H 131 H (70-110) mg/dL Calcium (8.4-10.2) mg/dL Magnesium (1.6-2.3) mg/dL AST (17-59) U/L ALT (4-49) U/L Total Protein (6.3-8.2) g/dL Albumin (3.5-5.0) g/dL Crossmatch 07/25/24 07/25/24 07/25/24 Range/Units 02:56 03:55 03:55 WBC 11.9 H (3.8-10.6) k/uL RBC 3.31 L (4.30-5.90) m/uL Hgb 10.2 L (13.0-17.5) gm/dL Hct 30.4 L (39.0-53.0) % Neutrophils # 10.9 H (1.3-7.7) k/uL Lymphocytes # 0.6 L (1.0-4.8) k/uL ABG pH (7.35-7.45) ABG pCO2 (35-45) mmHg ABG pO2 (83-108) mmHg ABG Total CO2 (19-24) mmol/L ABG O2 Saturation (94-97) % Chloride 113 H (98-107) mmol/L Carbon Dioxide 20 L (22-30) mmol/L Glucose 113 H (74-99) mg/dL POC Glucose (mg/dL) 129 H (70-110) mg/dL Calcium (8.4-10.2) mg/dL Magnesium (1.6-2.3) mg/dL AST 91 H (17-59) U/L ALT 63 H (4-49) U/L Total Protein 4.8 L (6.3-8.2) g/dL Albumin 2.8 L (3.5-5.0) g/dL Crossmatch 07/25/24 07/25/24 07/25/24 Range/Units 03:55 05:26 06:49 WBC (3.8-10.6) k/uL RBC (4.30-5.90) m/uL Hgb (13.0-17.5) gm/dL Hct (39.0-53.0) % Neutrophils # (1.3-7.7) k/uL Lymphocytes # (1.0-4.8) k/uL ABG pH (7.35-7.45) ABG pCO2 (35-45) mmHg ABG pO2 (83-108) mmHg ABG Total CO2 (19-24) mmol/L ABG O2 Saturation (94-97) % Chloride (98-107) mmol/L Carbon Dioxide (22-30) mmol/L Glucose (74-99) mg/dL POC Glucose (mg/dL) 127 H 126 H 128 H (70-110) mg/dL Calcium (8.4-10.2) mg/dL Magnesium (1.6-2.3) mg/dL AST (17-59) U/L ALT (4-49) U/L Total Protein (6.3-8.2) g/dL Albumin (3.5-5.0) g/dL Crossmatch 07/25/24 07/25/24 07/25/24 Range/Units 08:17 09:47 10:55 WBC (3.8-10.6) k/uL RBC (4.30-5.90) m/uL Hgb (13.0-17.5) gm/dL Hct (39.0-53.0) % Neutrophils # (1.3-7.7) k/uL Lymphocytes # (1.0-4.8) k/uL ABG pH (7.35-7.45) ABG pCO2 (35-45) mmHg ABG pO2 (83-108) mmHg ABG Total CO2 (19-24) mmol/L ABG O2 Saturation (94-97) % Chloride (98-107) mmol/L Carbon Dioxide (22-30) mmol/L Glucose (74-99) mg/dL POC Glucose (mg/dL) 178 H 175 H 151 H (70-110) mg/dL Calcium (8.4-10.2) mg/dL Magnesium (1.6-2.3) mg/dL AST (17-59) U/L ALT (4-49) U/L Total Protein (6.3-8.2) g/dL Albumin (3.5-5.0) g/dL Crossmatch 07/25/24 07/25/24 07/25/24 Range/Units 12:03 13:40 14:55 WBC (3.8-10.6) k/uL RBC (4.30-5.90) m/uL Hgb (13.0-17.5) gm/dL Hct (39.0-53.0) % Neutrophils # (1.3-7.7) k/uL Lymphocytes # (1.0-4.8) k/uL ABG pH (7.35-7.45) ABG pCO2 (35-45) mmHg ABG pO2 (83-108) mmHg ABG Total CO2 (19-24) mmol/L ABG O2 Saturation (94-97) % Chloride (98-107) mmol/L Carbon Dioxide (22-30) mmol/L Glucose (74-99) mg/dL POC Glucose (mg/dL) 147 H 146 H 155 H (70-110) mg/dL Calcium (8.4-10.2) mg/dL Magnesium (1.6-2.3) mg/dL AST (17-59) U/L ALT (4-49) U/L Total Protein (6.3-8.2) g/dL Albumin (3.5-5.0) g/dL Crossmatch Assessment and Plan Assessment: Impression: POD #1 coronary artery bypass grafting x 5 vessels (left internal mammary artery to the left anterior descending coronary artery, radial artery to the obtuse marginal coronary artery, saphenous vein graft to the diagonal coronary artery, saphenous vein graft to the posterior descending coronary artery, saphenous vein graft to the posterior lateral branch of the right coronary artery), Acute non-ST elevation myocardial infarction on this admission Benign essential hypertension Dyslipidemia Ex-smoker, preoperative FEV1 of 76% History of prostate cancer pending radiation therapy recommendation: Continue maximal medical therapy with beta-blockers Plavix statin and aspirin Continue incentive spirometry Continue ambulation Continue insulin and address accordingly Continue GI and DVT prophylaxis Continue pain control/management Discontinue unnecessary catheters in the next 24 hours Continue daily x-rays of the chest and daily labs Will continue to follow Time with Patient: Less than 30
[2024-07-25] MEDS ORDERED: ONDANSETRON 4 MG/2 ML VIAL IVP PRN (15:37)
[2024-07-25 16:21] LABS: Glucose,Whole Blood 152 mg/dL (70-110)
--- NOTE | 2024-07-25 16:32 | P.PN ---
Subjective This is a 64-year-old male with no previous cardiac history and does not follow with a respiratory tech. Patient has a past medical history of hypertension hyperlipidemia. He states he developed chest pain and soreness in the left arm which he never had before. It started during the night it went away initially and then came back. No shortness of breath, no sweats, no dizziness. No palpitations. He states he is normally very active he does not have any symptoms of chest pain or dyspnea on exertion. He has no pain at the time of this evaluation. He denies any lower extremity edema no fever no cough no wheezing. He does have a history of smoking but quit many years ago. Blood pressure 127/84, heart rate 54, pulse ox 97% on room air. EKG: Sinus rhythm, 51 bpm, no acute ST-T wave changes. Chest x-ray: No consolidation Laboratory studies: CBC unremarkable. Potassium 4.1, creatinine 0.87. Troponins 2.53, 1.13, 0.386.Triglycerides 66, cholesterol 161, LDL 96, HDL 51 Home cardiac medications: Amlodipine/benazepril 10-40 mg 1 at bedtime, aspirin 81 mg daily, labetalol 300 mg every 12 hours, pravastatin 40 mg daily. 07/21 Patient is seen today in follow-up. Yesterday he underwent cardiac catheterization which revealed severe triple-vessel coronary artery disease with slow flow in the PLV that could be the culprit lesion. Codominant system, elevated LVEDP. Patient was seen by cardiothoracic surgery with plan for CABG on Wednesday. Patient has been maintained on heparin drip. Medication changes made yesterday by cardiothoracic surgery and relationship to amlodipine, lisinopril were both discontinued and patient started on hydralazine. Blood pressure 169/81, heart rate 63, pulse ox 96% on room air. Repeat CBC unremarkable. 07/22/2024 Patient examined this morning at the bedside. Patient's family is present. Patient currently denies chest pain or pressure. He denies shortness of breath. He is about to take a shower at the time of examination. He remains on IV heparin. Blood pressure slightly elevated with recent readings of 146/72 and 168/84. 07/23/2024 Patient examined this morning the bedside. Patient's family is present. He currently denies chest pain or pressure. He denies shortness of breath. He remains on IV heparin. Blood pressure this morning 151/71. His hydralazine was increased yesterday. He is anticipating surgery tomorrow. 07/25 Patient underwent CABG with 5 vessels [place] to LAD, radial to OM, SVG to diagonal, SVG to PDA and SVG to posterior lateral 07/24/2024. He has been doing well. He denies any chest pain or pressure. No significant shortness breath. He received IV albumin 250 mL this morning. CVP 6 and PA pressures 32/9 with a cardiac index 2.0 as morning and Forreston-Konrad catheter was discontinued. Has an appetite and remains in sinus rhythm. PHYSICAL EXAM: VITAL SIGNS: Reviewed. GENERAL: Well-developed in no acute distress. NECK: Supple. No JVD or thyromegaly LUNGS: Respirations even and unlabored. Lungs essentially clear to auscultation bilaterally. HEART: Regular rate and rhythm. S1 and S2 heard. Systolic murmur noted EXTREMITIES: Normal range of motion. No clubbing or cyanosis. Peripheral pulses intact. No lower extremity edema ASSESSMENT: Non-STEMI, status post cardiac catheterization revealing triple-vessel disease CAD s/p CABG x 5 07/24 Hypertension Hyperlipidemia Daily alcohol use Prostate cancer Former nicotine dependence PLAN: Continue current cardiac medications Patient recovering well from CABG. Continue with aspirin, Lipitor, Lasix, amiodarone drip, metoprolol. Objective - Vital Signs Vital signs: Vital Signs Temp 97.7 F 07/25/24 16:00 Pulse 80 07/25/24 16:27 Resp 18 07/25/24 16:00 BP 144/82 07/24/24 06:48 Pulse Ox 94 L 07/25/24 16:00 FiO2 21 07/25/24 08:11 Intake & Output 07/24/24 07/25/24 07/25/24 18:59 06:59 18:59 Intake Total 217.458 7314.978 1263.300 Output Total 1855 720 340 Balance -4608.430 3825.978 923.300 Weight 94.7 kg 94.7 kg Intake: IV 618 1498 601 ACETAMINOPHEN IV (For NPO 100 500 100 ) 1,000 mg In Empty Bag 1 bag @ 400 mls/hr IVPB Q6H [facility] Rx#:[id number] CO/CI 120 240 Pressure Bag 45 108 51 Sodium Chloride 0.9% 1, 250 600 400 000 ml @ 50 mls/hr IV . Q20H [facility] Rx#:[id number] ceFAZolin 2 gm In Sodium 50 50 50 Chloride 0.9% 50 ml @ 100 mls/hr IVPB ONCE ONE Rx# :[id number] Intake, IV Titration 44.502 1.978 302.300 Amount Albumin Human 5% 250 ml 250 In Empty Bag 1 bag @ 250 mls/hr IVPB Q1HR PRN Rx#: [id number] Clevidipine Butyrate 25 19.067 mg In Empty Bag 1 bag @ 1 MG/HR 2 mls/hr IV .Q24H [facility] Rx#:[id number] Insulin Regular 100 unit 1.801 1.978 26.125 In Sodium Chloride 0.9% 100 ml @ Per Protocol IV .Q0M [facility] Rx#:[id number] Nitroglycerin-D5w Pmx 50 26.175 mg In Dextrose/Water 1 250ml.bag @ 5 MCG/MIN 1.5 mls/hr IV .Q24H [facility] Rx#: [id number] propofoL 1,000 mg In 23.634 Empty Bag 1 bag @ Titrate IV .Q0M [facility] Rx#: [id number] Oral 800 360 Output: Chest Tube Drainage 230 220 190 Left Pleural 115 60 70 Mediastinal 115 160 120 Drainage 15 10 Left Forearm 15 10 Urine 1125 485 140 Estimated Blood Loss 500 Other: Voiding Method Indwelling Catheter Indwelling Catheter Indwelling Catheter ABP, PAP, CO, CI - Last Documented Arterial Blood Pressure 103/54 Pulmonary Artery Pressure 44/19 Cardiac Output 5 Cardiac Index 2.4 - Labs CBC & Chem 7: 07/25/24 03:55 07/25/24 03:55 Labs: Abnormal Lab Results - Last 24 Hours (Table) 07/23/24 07/24/24 07/24/24 Range/Units 06:47 16:55 16:57 WBC 13.9 H (3.8-10.6) k/uL RBC 3.69 L (4.30-5.90) m/uL Hgb 11.4 L (13.0-17.5) gm/dL Hct 33.8 L (39.0-53.0) % Neutrophils # 12.3 H (1.3-7.7) k/uL Lymphocytes # (1.0-4.8) k/uL ABG pO2 (83-108) mmHg ABG O2 Saturation (94-97) % Chloride (98-107) mmol/L Carbon Dioxide (22-30) mmol/L Glucose (74-99) mg/dL POC Glucose (mg/dL) 132 H (70-110) mg/dL AST (17-59) U/L ALT (4-49) U/L Total Protein (6.3-8.2) g/dL Albumin (3.5-5.0) g/dL Crossmatch See Detail 07/24/24 07/24/24 07/24/24 Range/Units 18:01 18:24 18:54 WBC (3.8-10.6) k/uL RBC (4.30-5.90) m/uL Hgb (13.0-17.5) gm/dL Hct (39.0-53.0) % Neutrophils # (1.3-7.7) k/uL Lymphocytes # (1.0-4.8) k/uL ABG pO2 115 H (83-108) mmHg ABG O2 Saturation 99.0 H (94-97) % Chloride (98-107) mmol/L Carbon Dioxide (22-30) mmol/L Glucose (74-99) mg/dL POC Glucose (mg/dL) 135 H 122 H (70-110) mg/dL AST (17-59) U/L ALT (4-49) U/L Total Protein (6.3-8.2) g/dL Albumin (3.5-5.0) g/dL Crossmatch 07/24/24 07/24/24 07/24/24 Range/Units 19:55 19:58 20:52 WBC 13.5 H (3.8-10.6) k/uL RBC 3.52 L (4.30-5.90) m/uL Hgb 10.7 L (13.0-17.5) gm/dL Hct 32.6 L (39.0-53.0) % Neutrophils # 12.5 H (1.3-7.7) k/uL Lymphocytes # 0.5 L (1.0-4.8) k/uL ABG pO2 (83-108) mmHg ABG O2 Saturation (94-97) % Chloride (98-107) mmol/L Carbon Dioxide (22-30) mmol/L Glucose (74-99) mg/dL POC Glucose (mg/dL) 127 H 121 H (70-110) mg/dL AST (17-59) U/L ALT (4-49) U/L Total Protein (6.3-8.2) g/dL Albumin (3.5-5.0) g/dL Crossmatch 07/24/24 07/24/24 07/25/24 Range/Units 21:56 22:55 00:01 WBC (3.8-10.6) k/uL RBC (4.30-5.90) m/uL Hgb (13.0-17.5) gm/dL Hct (39.0-53.0) % Neutrophils # (1.3-7.7) k/uL Lymphocytes # (1.0-4.8) k/uL ABG pO2 (83-108) mmHg ABG O2 Saturation (94-97) % Chloride (98-107) mmol/L Carbon Dioxide (22-30) mmol/L Glucose (74-99) mg/dL POC Glucose (mg/dL) 134 H 132 H 137 H (70-110) mg/dL AST (17-59) U/L ALT (4-49) U/L Total Protein (6.3-8.2) g/dL Albumin (3.5-5.0) g/dL Crossmatch 07/25/24 07/25/24 07/25/24 Range/Units 00:56 01:56 02:56 WBC (3.8-10.6) k/uL RBC (4.30-5.90) m/uL Hgb (13.0-17.5) gm/dL Hct (39.0-53.0) % Neutrophils # (1.3-7.7) k/uL Lymphocytes # (1.0-4.8) k/uL ABG pO2 (83-108) mmHg ABG O2 Saturation (94-97) % Chloride (98-107) mmol/L Carbon Dioxide (22-30) mmol/L Glucose (74-99) mg/dL POC Glucose (mg/dL) 133 H 131 H 129 H (70-110) mg/dL AST (17-59) U/L ALT (4-49) U/L Total Protein (6.3-8.2) g/dL Albumin (3.5-5.0) g/dL Crossmatch 07/25/24 07/25/24 07/25/24 Range/Units 03:55 03:55 03:55 WBC 11.9 H (3.8-10.6) k/uL RBC 3.31 L (4.30-5.90) m/uL Hgb 10.2 L (13.0-17.5) gm/dL Hct 30.4 L (39.0-53.0) % Neutrophils # 10.9 H (1.3-7.7) k/uL Lymphocytes # 0.6 L (1.0-4.8) k/uL ABG pO2 (83-108) mmHg ABG O2 Saturation (94-97) % Chloride 113 H (98-107) mmol/L Carbon Dioxide 20 L (22-30) mmol/L Glucose 113 H (74-99) mg/dL POC Glucose (mg/dL) 127 H (70-110) mg/dL AST 91 H (17-59) U/L ALT 63 H (4-49) U/L Total Protein 4.8 L (6.3-8.2) g/dL Albumin 2.8 L (3.5-5.0) g/dL Crossmatch 07/25/24 07/25/24 07/25/24 Range/Units 05:26 06:49 08:17 WBC (3.8-10.6) k/uL RBC (4.30-5.90) m/uL Hgb (13.0-17.5) gm/dL Hct (39.0-53.0) % Neutrophils # (1.3-7.7) k/uL Lymphocytes # (1.0-4.8) k/uL ABG pO2 (83-108) mmHg ABG O2 Saturation (94-97) % Chloride (98-107) mmol/L Carbon Dioxide (22-30) mmol/L Glucose (74-99) mg/dL POC Glucose (mg/dL) 126 H 128 H 178 H (70-110) mg/dL AST (17-59) U/L ALT (4-49) U/L Total Protein (6.3-8.2) g/dL Albumin (3.5-5.0) g/dL Crossmatch 07/25/24 07/25/24 07/25/24 Range/Units 09:47 10:55 12:03 WBC (3.8-10.6) k/uL RBC (4.30-5.90) m/uL Hgb (13.0-17.5) gm/dL Hct (39.0-53.0) % Neutrophils # (1.3-7.7) k/uL Lymphocytes # (1.0-4.8) k/uL ABG pO2 (83-108) mmHg ABG O2 Saturation (94-97) % Chloride (98-107) mmol/L Carbon Dioxide (22-30) mmol/L Glucose (74-99) mg/dL POC Glucose (mg/dL) 175 H 151 H 147 H (70-110) mg/dL AST (17-59) U/L ALT (4-49) U/L Total Protein (6.3-8.2) g/dL Albumin (3.5-5.0) g/dL Crossmatch 07/25/24 07/25/24 07/25/24 Range/Units 13:40 14:55 16:19 WBC (3.8-10.6) k/uL RBC (4.30-5.90) m/uL Hgb (13.0-17.5) gm/dL Hct (39.0-53.0) % Neutrophils # (1.3-7.7) k/uL Lymphocytes # (1.0-4.8) k/uL ABG pO2 (83-108) mmHg ABG O2 Saturation (94-97) % Chloride (98-107) mmol/L Carbon Dioxide (22-30) mmol/L Glucose (74-99) mg/dL POC Glucose (mg/dL) 146 H 155 H 152 H (70-110) mg/dL AST (17-59) U/L ALT (4-49) U/L Total Protein (6.3-8.2) g/dL Albumin (3.5-5.0) g/dL Crossmatch
[2024-07-25 18:16] LABS: Glucose,Whole Blood 167 mg/dL (70-110)
[2024-07-25 19:06] LABS: Glucose,Whole Blood 149 mg/dL (70-110)
[2024-07-25 20:00] LABS: Glucose,Whole Blood 141 mg/dL (70-110)
[2024-07-25] MEDS: SENNOSIDES-DOCUSATE SODIUM 1 EACH TAB PO SCH (20:59)
[2024-07-25 22:58] LABS: Glucose,Whole Blood 100 mg/dL (70-110)
[2024-07-26 00:04] LABS: Glucose,Whole Blood 124 mg/dL (70-110)
[2024-07-26 01:00] LABS: Glucose,Whole Blood 131 mg/dL (70-110)
[2024-07-26 02:00] LABS: Glucose,Whole Blood 126 mg/dL (70-110)
[2024-07-26 03:00] LABS: Glucose,Whole Blood 124 mg/dL (70-110)
[2024-07-26 04:06] LABS: Glucose,Whole Blood 119 mg/dL (70-110)
[2024-07-26 04:48] LABS: Basophils % (A) 0 %; Eosinophils # (A) 0.1 k/uL (0-0.7); Eosinophils % (A) 1 %; HCT 25.7 % (39.0-53.0); Lymphocytes % (A) 10 %; MCH 30.6 pg (25.0-35.0); MCHC 33.2 g/dL (31.0-37.0); MCV 92.2 fL (80.0-100.0); Mean Platelet Volume 7.8; Monocytes # (A) 0.5 k/uL (0-1.0); Monocytes % (A) 5 %; Neutrophils # (A) 8.1 k/uL (1.3-7.7); Neutrophils % (A) 82 %; Platelet Count 189 k/uL (150-450); RBC 2.79 m/uL (4.30-5.90); RDW 13.5 % (11.5-15.5); WBC 9.8 k/uL (3.8-10.6)
[2024-07-26 05:09] LABS: HGB 8.5 gm/dL (13.0-17.5)
[2024-07-26 05:34] LABS: Ionized Calcium 4.9 mg/dL (4.5-5.3)
[2024-07-26 05:46] LABS: ALT 49 U/L (4-49); AST 101 U/L (17-59); African American GFR (CKD) 64 (>60 ml/min/1.73 sqM); Albumin 2.7 g/dL (3.5-5.0); Alkaline Phosphatase 49 U/L (38-126); Anion Gap 6 mmol/L; Blood Urea Nitrogen 27 mg/dL (9-20); Calcium 8.6 mg/dL (8.4-10.2); Carbon Dioxide 20 mmol/L (22-30); Chloride 107 mmol/L (98-107); Glucose 102 mg/dL (74-99); Non-African American GFR(CKD) 55 (>60 ml/min/1.73 sqM); Potassium 3.7 mmol/L (3.5-5.1); Sodium 133 mmol/L (137-145); Total Bilirubin 0.3 mg/dL (0.2-1.3); Total Protein 4.8 g/dL (6.3-8.2)
[2024-07-26 06:02] LABS: Glucose,Whole Blood 108 mg/dL (70-110)
[2024-07-26] MEDS: PANTOPRAZOLE 40 MG TABLET PO SCH (06:30)
[2024-07-26] MEDS: POTASSIUM CHLORIDE ER 20 MEQ TAB.ER PO SCH (06:30)
[2024-07-26 06:58] LABS: Glucose,Whole Blood 112 mg/dL (70-110)
[2024-07-26] MEDS: DEXTROSE 5% IN WATER 100 ML with AMIODARONE 150 MG IV PRN (07:33)
[2024-07-26] MEDS: AMIODARONE 360 MG in DEXTROSE 5% IN WATER 200 ML IV PRN (07:53)
--- NOTE | 2024-07-26 08:16 | P.PN ---
Subjective Progress Note Date: 07/26/24 Principal diagnosis: Triple-vessel coronary artery disease, non-STEMI this admission. History of hypertension, hyperlipidemia, previous tobacco dependence, daily wine usage, prostate cancer, pending radiation therapy POD #2 coronary artery bypass grafting x 5 vessels (left internal mammary artery to the left anterior descending coronary artery, radial artery to the obtuse mar ginal coronary artery, saphenous vein graft to the diagonal coronary artery, saphenous vein graft to the posterior descending coronary artery, saphenous vein graft to the posterior lateral branch of the right coronary artery), endoscopic harvest left radial artery, endoscopic harvest of bilateral greater saphenous veins, ligation of left atrial appendage using a 35mm ArtiClip, intraoperative epiaortic ultrasound, graft flow measurements using the Striiv system, intraoperative transesophageal echocardiogram completed by anesthesia. Acute blood loss anemia, expected given hemodilution and cardiopulmonary bypass Paroxysmal atrial fibrillation, not expected but known common occurrence after open heart surgery The patient was seen and examined this morning sitting up in in recliner in the intensive care unit in no acute distress. States pain is controlled on current medication regimen, denies shortness of breath. Just went into atrial fibrillation with heart rate 115-120, previously had been sinus rhythm since surgery. Hemodynamically stable. Chest x-ray, labs reviewed. Right internal jugular cordis, right radial arterial line, mediastinal/left pleural chest tubes all remain. Patient has been ambulatory multiple times on the hallway without difficulty. No other new concerns. Objective - Vital Signs Vital signs: Vital Signs Temp 99.8 F H 07/26/24 04:00 Pulse 98 07/26/24 07:00 Resp 17 07/26/24 07:00 BP 153/78 07/26/24 07:00 Pulse Ox 91 L 07/26/24 07:00 FiO2 21 07/25/24 08:11 Intake & Output 07/25/24 07/26/24 07/26/24 18:59 06:59 18:59 Intake Total 1435.677 676.963 36 Output Total 495 650 60 Balance 940.677 26.963 -24 Weight 94.7 kg 97.3 kg Intake: IV 769 652 36 ACETAMINOPHEN IV (For NPO 100 ) 1,000 mg In Empty Bag 1 bag @ 400 mls/hr IVPB Q6H [facility] Rx#:[id number] Pressure Bag 69 72 6 Sodium Chloride 0.9% 1, 550 580 30 000 ml @ 30 mls/hr IV . Q24H [facility] Rx#:[id number] ceFAZolin 2 gm In Sodium 50 Chloride 0.9% 50 ml @ 100 mls/hr IVPB ONCE ONE Rx# :[id number] Intake, IV Titration 306.677 24.963 Amount Albumin Human 5% 250 ml 250 In Empty Bag 1 bag @ 250 mls/hr IVPB Q1HR PRN Rx#: [id number] Insulin Regular 100 unit 30.502 24.963 In Sodium Chloride 0.9% 100 ml @ Per Protocol IV .Q0M [facility] Rx#:[id number] Nitroglycerin-D5w Pmx 50 26.175 mg In Dextrose/Water 1 250ml.bag @ 5 MCG/MIN 1.5 mls/hr IV .Q24H [facility] Rx#: [id number] Oral 360 Output: Chest Tube Drainage 240 210 20 Left Pleural 80 90 10 Mediastinal 160 120 10 Drainage 10 Left Forearm 10 Urine 245 440 40 Other: Voiding Method Indwelling Catheter Indwelling Catheter ABP, PAP, CO, CI - Last Documented Arterial Blood Pressure 139/56 Pulmonary Artery Pressure 44/19 Cardiac Output 5 Cardiac Index 2.4 - Exam CONSTITUTIONAL: Appears comfortable, cooperative, no acute distress RESPIRATORY: Lungs sounds diminished bilaterally. Respirations even, nonlabored. Currently on 2 L nasal cannula with oxygen saturation 94%. Able to achieve 1500 mL on incentive spirometry. Strong nonproductive cough. CARDIOVASCULAR: S1, S2 present. Irregular rate and rhythm, atrial fibrillation on telemetry. Sternum stable. Palpable peripheral pulses bilaterally. No edema present. No calf pain or tenderness noted. Heart hugger in place with patient demonstrating appropriate use. Antiembolism stockings, SCDs present. GASTROINTESTINAL: Abdomen soft, nontender, nondistended. Active bowel sounds present 4 quadrants. Tolerating diet. Denies flatus GENITOURINARY: Doyle present draining clear, yellow urine. Output overnight 20-35 mL per hour, 685 mL in the last 24 hours INTEGUMENTARY: Skin is warm and dry with evidence of good perfusion. Anterior chest incision well approximated and covered with dry intact dressing. Bilateral lower extremity EVH sites as well as left radial artery harvest site well approximated without redness or drainage. NEUROLOGIC: Cranial nerves II through XII intact MUSKULOSKELETAL: Able to move all extremities, strength equal bilaterally, gait normal PSYCHIATRIC: Alert and oriented to person place and time, appropriate affect, intact judgment and insight INVASIVE LINES AND TUBES: Mediastinal/left pleural chest tubes present and connected to wall suction, no air leaks present. Mediastinal tube with 100 mL serosanguineous drainage overnight, 300 mL in the last 24 hours. Left pleural chest tube with 90 mL serosanguineous drainage overnight, 200 mL in the last 24 hours. A/V epicardial pacemaker wires present, connected to generator, VVI mode with backup rate 50 bpm. Right internal jugular cordis, right radial arterial line present - Allied health notes Allied health notes reviewed: nursing - Labs CBC & Chem 7: 07/26/24 04:03 07/26/24 04:03 Labs: Abnormal Lab Results - Last 24 Hours (Table) 07/25/24 07/25/24 07/25/24 Range/Units 08:17 09:47 10:55 RBC (4.30-5.90) m/uL Hgb (13.0-17.5) gm/dL Hct (39.0-53.0) % Neutrophils # (1.3-7.7) k/uL Sodium (137-145) mmol/L Carbon Dioxide (22-30) mmol/L BUN (9-20) mg/dL Creatinine (0.66-1.25) mg/dL Glucose (74-99) mg/dL POC Glucose (mg/dL) 178 H 175 H 151 H (70-110) mg/dL AST (17-59) U/L Total Protein (6.3-8.2) g/dL Albumin (3.5-5.0) g/dL 07/25/24 07/25/24 07/25/24 Range/Units 12:03 13:40 14:55 RBC (4.30-5.90) m/uL Hgb (13.0-17.5) gm/dL Hct (39.0-53.0) % Neutrophils # (1.3-7.7) k/uL Sodium (137-145) mmol/L Carbon Dioxide (22-30) mmol/L BUN (9-20) mg/dL Creatinine (0.66-1.25) mg/dL Glucose (74-99) mg/dL POC Glucose (mg/dL) 147 H 146 H 155 H (70-110) mg/dL AST (17-59) U/L Total Protein (6.3-8.2) g/dL Albumin (3.5-5.0) g/dL 07/25/24 07/25/24 07/25/24 Range/Units 16:19 18:03 19:04 RBC (4.30-5.90) m/uL Hgb (13.0-17.5) gm/dL Hct (39.0-53.0) % Neutrophils # (1.3-7.7) k/uL Sodium (137-145) mmol/L Carbon Dioxide (22-30) mmol/L BUN (9-20) mg/dL Creatinine (0.66-1.25) mg/dL Glucose (74-99) mg/dL POC Glucose (mg/dL) 152 H 167 H 149 H (70-110) mg/dL AST (17-59) U/L Total Protein (6.3-8.2) g/dL Albumin (3.5-5.0) g/dL 07/25/24 07/26/24 07/26/24 Range/Units 19:58 00:02 00:58 RBC (4.30-5.90) m/uL Hgb (13.0-17.5) gm/dL Hct (39.0-53.0) % Neutrophils # (1.3-7.7) k/uL Sodium (137-145) mmol/L Carbon Dioxide (22-30) mmol/L BUN (9-20) mg/dL Creatinine (0.66-1.25) mg/dL Glucose (74-99) mg/dL POC Glucose (mg/dL) 141 H 124 H 131 H (70-110) mg/dL AST (17-59) U/L Total Protein (6.3-8.2) g/dL Albumin (3.5-5.0) g/dL 07/26/24 07/26/24 07/26/24 Range/Units 01:58 02:59 04:03 RBC 2.79 L (4.30-5.90) m/uL Hgb 8.5 L D (13.0-17.5) gm/dL Hct 25.7 L (39.0-53.0) % Neutrophils # 8.1 H (1.3-7.7) k/uL Sodium (137-145) mmol/L Carbon Dioxide (22-30) mmol/L BUN (9-20) mg/dL Creatinine (0.66-1.25) mg/dL Glucose (74-99) mg/dL POC Glucose (mg/dL) 126 H 124 H (70-110) mg/dL AST (17-59) U/L Total Protein (6.3-8.2) g/dL Albumin (3.5-5.0) g/dL 07/26/24 07/26/24 07/26/24 Range/Units 04:03 04:04 06:55 RBC (4.30-5.90) m/uL Hgb (13.0-17.5) gm/dL Hct (39.0-53.0) % Neutrophils # (1.3-7.7) k/uL Sodium 133 L (137-145) mmol/L Carbon Dioxide 20 L (22-30) mmol/L BUN 27 H (9-20) mg/dL Creatinine 1.35 H (0.66-1.25) mg/dL Glucose 102 H (74-99) mg/dL POC Glucose (mg/dL) 119 H 112 H (70-110) mg/dL AST 101 H (17-59) U/L Total Protein 4.8 L (6.3-8.2) g/dL Albumin 2.7 L (3.5-5.0) g/dL - Imaging and Cardiology Chest x-ray: image reviewed Assessment and Plan Assessment: Triple-vessel coronary artery disease, non-STEMI this admission, status post 5 vessel CABG Chest pain on admission Acute blood loss anemia, expected Paroxysmal atrial fibrillation, status post ligation of the left atrial appendage Bilateral carotid artery stenosis 50 to 69% History of hypertension Hyperlipidemia, treated, cholesterol 161, LDL 97 Previous tobacco dependence, FEV1 76% of predicted Daily wine usage Prostate cancer, pending radiation therapy Plan: Continue to maximize medical therapy with aspirin, statin, Plavix, and beta- eliud. Will increase beta-eliud therapy as tolerated, increased to 25 mg twice daily today Continue amlodipine for radial artery spasm prophylaxis, increased to 5 mg daily at noon with hold parameters Will bolus amiodarone, start drip, will transition to oral. No anticoagulation necessary at this point Wean oxygen as tolerated. Encourage incentive spirometry use 10 times every hour while awake. Bronchodilators per pulmonology Increase activity, ambulate as tolerated. PT/OT/cardiac rehab following Will monitor daily labs and chest x-rays. Electrolyte replacement per protocol. GI/DVT prophylaxis. Insulin management per internal medicine, patient is not diabetic, preoperative hemoglobin A1c 5.7% Pain control per current medication regimen Discontinue Cordis, arterial line Continue chest tubes for another 24 hours, monitor output. Will monitor output of the mediastinal chest tube and potentially remove later this afternoon Discontinue Doyle catheter, may bladder scan and straight cath for greater than 300 mL residual Continue to record strict accurate intake and output Daily weights. Keep atrial and ventricular epicardial pacemaker wires in place and connected to backup bedside pacemaker generator on a VVI of [address] transfer orders for 3 S. cardiac stepdown unit this afternoon, may transfer when bed available More recommendations to follow based on patient's clinical course.
--- NOTE | 2024-07-26 08:18 | P.PN ---
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 Patient has a past medical history of hypertension hyperlipidemia. He states he developed chest pain and soreness in the left arm which he never had before. It started during the night it went away initially and then came back. No shortness of breath, no sweats, no dizziness. No palpitations. He states he is normally very active he does not have any symptoms of chest pain or dyspnea on exertion. He has no pain at the time of this evaluation. He denies any lower extremity edema no fever no cough no wheezing. He does have a history of smoking but quit many years ago. Blood pressure 127/84, heart rate 54, pulse ox 97% on room air. EKG: Sinus rhythm, 51 bpm, no acute ST-T wave changes. Chest x-ray: No consolidation Laboratory studies: CBC unremarkable. Potassium 4.1, creatinine 0.87. Troponins 2.53, 1.13, 0.386.Triglycerides 66, cholesterol 161, LDL 96, HDL 51 Home cardiac medications: Amlodipine/benazepril 10-40 mg 1 at bedtime, aspirin 81 mg daily, labetalol 300 mg every 12 hours, pravastatin 40 mg daily. 07/21 Patient is seen today in follow-up. Yesterday he underwent cardiac catheterization which revealed severe triple-vessel coronary artery disease with slow flow in the PLV that could be the culprit lesion. Codominant system, elevated LVEDP. Patient was seen by cardiothoracic surgery with plan for CABG on Wednesday. Patient has been maintained on heparin drip. Medication changes made yesterday by cardiothoracic surgery and relationship to amlodipine, lisinopril were both discontinued and patient started on hydralazine. Blood pressure 169/81, heart rate 63, pulse ox 96% on room air. Repeat CBC unremarkable. 07/22/2024 Patient examined this morning at the bedside. Patient's family is present. Patient currently denies chest pain or pressure. He denies shortness of breath. He is about to take a shower at the time of examination. He remains on IV heparin. Blood pressure slightly elevated with recent readings of 146/72 and 168/84. 07/23/2024 Patient examined this morning the bedside. Patient's family is present. He currently denies chest pain or pressure. He denies shortness of breath. He remains on IV heparin. Blood pressure this morning 151/71. His hydralazine was increased yesterday. He is anticipating surgery tomorrow. 07/25 Patient underwent CABG with 5 vessels [place] to LAD, radial to OM, SVG to diagonal, SVG to PDA and SVG to posterior lateral 07/24/2024. He has been doing well. He denies any chest pain or pressure. No significant shortness breath. He received IV albumin 250 mL this morning. CVP 6 and PA pressures 32/9 with a cardiac index 2.0 as morning and [place]-Konrad catheter was discontinued. Has an appetite and remains in sinus rhythm. 07/26 Patient seen and examined. Patient denies any chest pain or pressure. Mild shortness breath. He did go in A. fib with relatively controlled heart rates in the 90s to 100s this morning. He has since converted with amiodarone bolus. PHYSICAL EXAM: VITAL SIGNS: Reviewed. GENERAL: Well-developed in no acute distress. NECK: Supple. No JVD or thyromegaly LUNGS: Respirations even and unlabored. Lungs essentially clear to auscultation bilaterally. HEART: Regular rate and rhythm. S1 and S2 heard. Systolic murmur noted EXTREMITIES: Normal range of motion. No clubbing or cyanosis. Peripheral pulses intact. No lower extremity edema ASSESSMENT: Non-STEMI, status post cardiac catheterization revealing triple-vessel disease CAD s/p CABG x 5 07/24 Hypertension Hyperlipidemia Daily alcohol use Prostate cancer Former nicotine dependence Post operative Afib PLAN: Continue current cardiac medications Patient recovering well from CABG. Continue with aspirin, Lipitor, Lasix, metoprolol Episode of Afib improved with amio bolus Objective - Vital Signs Vital signs: Vital Signs Temp 99 F 07/26/24 08:00 Pulse 97 07/26/24 08:15 Resp 13 07/26/24 08:00 BP 129/71 07/26/24 08:00 Pulse Ox 98 07/26/24 08:00 FiO2 21 07/25/24 08:11 Intake & Output 07/25/24 07/26/24 07/26/24 18:59 06:59 18:59 Intake Total 1435.677 676.963 72 Output Total 495 650 130 Balance 940.677 26.963 -58 Weight 94.7 kg 97.3 kg Intake: IV 769 652 72 ACETAMINOPHEN IV (For NPO 100 ) 1,000 mg In Empty Bag 1 bag @ 400 mls/hr IVPB Q6H [facility] Rx#:[id number] Pressure Bag 69 72 12 Sodium Chloride 0.9% 1, 550 580 60 000 ml @ 30 mls/hr IV . Q24H [facility] Rx#:[id number] ceFAZolin 2 gm In Sodium 50 Chloride 0.9% 50 ml @ 100 mls/hr IVPB ONCE ONE Rx# :[id number] Intake, IV Titration 306.677 24.963 Amount Albumin Human 5% 250 ml 250 In Empty Bag 1 bag @ 250 mls/hr IVPB Q1HR [facility] Rx#: [id number] Insulin Regular 100 unit 30.502 24.963 In Sodium Chloride 0.9% 100 ml @ Per Protocol IV .Q0M [facility] Rx#:[id number] Nitroglycerin-D5w Pmx 50 26.175 mg In Dextrose/Water 1 250ml.bag @ 5 MCG/MIN 1.5 mls/hr IV .Q24H [facility] Rx#: [id number] Oral 360 Output: Chest Tube Drainage 240 210 30 Left Pleural 80 90 10 Mediastinal 160 120 20 Drainage 10 Left Forearm 10 Urine 245 440 100 Other: Voiding Method Indwelling Catheter Indwelling Catheter ABP, PAP, CO, CI - Last Documented Arterial Blood Pressure 139/56 Pulmonary Artery Pressure 44/19 Cardiac Output 5 Cardiac Index 2.4 - Labs CBC & Chem 7: 07/26/24 04:03 07/26/24 04:03 Labs: Abnormal Lab Results - Last 24 Hours (Table) 07/25/24 07/25/24 07/25/24 Range/Units 08:17 09:47 10:55 RBC (4.30-5.90) m/uL Hgb (13.0-17.5) gm/dL Hct (39.0-53.0) % Neutrophils # (1.3-7.7) k/uL Sodium (137-145) mmol/L Carbon Dioxide (22-30) mmol/L BUN (9-20) mg/dL Creatinine (0.66-1.25) mg/dL Glucose (74-99) mg/dL POC Glucose (mg/dL) 178 H 175 H 151 H (70-110) mg/dL AST (17-59) U/L Total Protein (6.3-8.2) g/dL Albumin (3.5-5.0) g/dL 07/25/24 07/25/24 07/25/24 Range/Units 12:03 13:40 14:55 RBC (4.30-5.90) m/uL Hgb (13.0-17.5) gm/dL Hct (39.0-53.0) % Neutrophils # (1.3-7.7) k/uL Sodium (137-145) mmol/L Carbon Dioxide (22-30) mmol/L BUN (9-20) mg/dL Creatinine (0.66-1.25) mg/dL Glucose (74-99) mg/dL POC Glucose (mg/dL) 147 H 146 H 155 H (70-110) mg/dL AST (17-59) U/L Total Protein (6.3-8.2) g/dL Albumin (3.5-5.0) g/dL 07/25/24 07/25/24 07/25/24 Range/Units 16:19 18:03 19:04 RBC (4.30-5.90) m/uL Hgb (13.0-17.5) gm/dL Hct (39.0-53.0) % Neutrophils # (1.3-7.7) k/uL Sodium (137-145) mmol/L Carbon Dioxide (22-30) mmol/L BUN (9-20) mg/dL Creatinine (0.66-1.25) mg/dL Glucose (74-99) mg/dL POC Glucose (mg/dL) 152 H 167 H 149 H (70-110) mg/dL AST (17-59) U/L Total Protein (6.3-8.2) g/dL Albumin (3.5-5.0) g/dL 07/25/24 07/26/24 07/26/24 Range/Units 19:58 00:02 00:58 RBC (4.30-5.90) m/uL Hgb (13.0-17.5) gm/dL Hct (39.0-53.0) % Neutrophils # (1.3-7.7) k/uL Sodium (137-145) mmol/L Carbon Dioxide (22-30) mmol/L BUN (9-20) mg/dL Creatinine (0.66-1.25) mg/dL Glucose (74-99) mg/dL POC Glucose (mg/dL) 141 H 124 H 131 H (70-110) mg/dL AST (17-59) U/L Total Protein (6.3-8.2) g/dL Albumin (3.5-5.0) g/dL 07/26/24 07/26/24 07/26/24 Range/Units 01:58 02:59 04:03 RBC 2.79 L (4.30-5.90) m/uL Hgb 8.5 L D (13.0-17.5) gm/dL Hct 25.7 L (39.0-53.0) % Neutrophils # 8.1 H (1.3-7.7) k/uL Sodium (137-145) mmol/L Carbon Dioxide (22-30) mmol/L BUN (9-20) mg/dL Creatinine (0.66-1.25) mg/dL Glucose (74-99) mg/dL POC Glucose (mg/dL) 126 H 124 H (70-110) mg/dL AST (17-59) U/L Total Protein (6.3-8.2) g/dL Albumin (3.5-5.0) g/dL 07/26/24 07/26/24 07/26/24 Range/Units 04:03 04:04 06:55 RBC (4.30-5.90) m/uL Hgb (13.0-17.5) gm/dL Hct (39.0-53.0) % Neutrophils # (1.3-7.7) k/uL Sodium 133 L (137-145) mmol/L Carbon Dioxide 20 L (22-30) mmol/L BUN 27 H (9-20) mg/dL Creatinine 1.35 H (0.66-1.25) mg/dL Glucose 102 H (74-99) mg/dL POC Glucose (mg/dL) 119 H 112 H (70-110) mg/dL AST 101 H (17-59) U/L Total Protein 4.8 L (6.3-8.2) g/dL Albumin 2.7 L (3.5-5.0) g/dL
[2024-07-26] MEDS: METOPROLOL TARTRATE 25 MG TAB PO SCH (08:47)
[2024-07-26] MEDS: MAGNESIUM HYDROXIDE 2,400 MG/30 ML CUP PO PRN (08:47)
--- NOTE | 2024-07-26 08:50 | XR ---
EXAMINATION TYPE: XR chest 1V portable DATE OF EXAM: 07/26/2024 5:28 AM CLINICAL INDICATION: Male, 64 years old with history of Post Operative Cardiac Surgery; [facility] COMPARISON: Chest radiographs from 07/25/2024 TECHNIQUE: XR chest 1V portable Frontal view of the chest. FINDINGS: Lungs/Pleura: Alonzo atelectasis and blunting of the left costophrenic angle. There is no evidence of focal consolidation, or pneumothorax. Pulmonary vascularity: Unremarkable. Heart/mediastinum: Cardiomediastinal silhouette is enlarged. Atherosclerotic calcifications are seen in the aorta. Musculoskeletal: No acute osseous pathology. Postsurgical changes with sternotomy wires, left atrial appendage occlusion device left thoracotomy t ube and mediastinal drainage tube. Mild pulmonary edema similar prior. [place]-Konrad catheter sheath vimal ins present. IMPRESSION: Postsurgical changes are stable exam. [facility], , 07/26/2024 8:48 AM
[2024-07-26] MEDS ORDERED: ACETAMINOPHEN TAB 325 MG TAB PO PRN (09:00)
[2024-07-26 09:25] LABS: Glucose,Whole Blood 187 mg/dL (70-110)
[2024-07-26 09:58] LABS: Glucose,Whole Blood 166 mg/dL (70-110)
[2024-07-26 11:39] LABS: Glucose,Whole Blood 129 mg/dL (70-110)
--- NOTE | 2024-07-26 11:39 | P.PN ---
Subjective Progress Note Date: 07/26/24 Patient states that he did 1 lap in the ICU. He states that he did relapse yesterday. Patient overall is feeling better. 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 Acute blood loss Hemoglobin this morning dropped to 8.5 Continue to monitor CBC Transfuse for hemoglobin less than 7 Acute hypoxic respiratory failure Patient now on room air and he was extubated on 07/24/2024 Patient currently on 6 L nasal cannula Wean O2 as tolerated Mild acute kidney injury Likely from surgery and acute blood loss anemia Monitor BMP Avoid nephrotoxic medications A-fib with RVR Patient converted to normal sinus rhythm after being given a bolus of amiodarone Cardiology on board Per CT surgery no need for anticoagulation at this point Metoprolol increased to 25 mg twice daily Non-ST elevation MA Continue with ASA 325 mg PO QD. Lipitor 80 mg PO QHS Plavix 75 mg PO QD. Metoprolol 12.5 mg PO BID. Telemetry monitoring. Cardiology and CT surgery on board. Leukocytosis likely reactive Resolved Pulmonary nodules Patient will need repeat CT chest in 6 months Hypertension BP meds adjusted by CT surgery Hyperlipidemia Continue statin DVT prophylaxis: Subcu heparin Objective - Vital Signs Vital signs: Vital Signs Temp 99 F 07/26/24 08:00 Pulse 78 07/26/24 11:35 Resp 14 07/26/24 11:00 BP 113/66 07/26/24 11:00 Pulse Ox 97 07/26/24 11:00 FiO2 21 07/25/24 08:11 Intake & Output 07/25/24 07/26/24 07/26/24 18:59 06:59 18:59 Intake Total 1435.677 676.963 177.064 Output Total 495 650 190 Balance 940.677 26.963 -12.936 Weight 94.7 kg 97.3 kg Intake: IV 769 652 174 ACETAMINOPHEN IV (For NPO 100 ) 1,000 mg In Empty Bag 1 bag @ 400 mls/hr IVPB Q6H [facility] Rx#:[id number] Pressure Bag 69 72 24 Sodium Chloride 0.9% 1, 550 580 150 000 ml @ 30 mls/hr IV . Q24H [facility] Rx#:[id number] ceFAZolin 2 gm In Sodium 50 Chloride 0.9% 50 ml @ 100 mls/hr IVPB ONCE ONE Rx# :[id number] Intake, IV Titration 306.677 24.963 3.064 Amount Albumin Human 5% 250 ml 250 In Empty Bag 1 bag @ 250 mls/hr IVPB Q1HR PRN Rx#: [id number] Insulin Regular 100 unit 30.502 24.963 3.064 In Sodium Chloride 0.9% 100 ml @ Per Protocol IV .Q0M [facility] Rx#:[id number] Nitroglycerin-D5w Pmx 50 26.175 mg In Dextrose/Water 1 250ml.bag @ 5 MCG/MIN 1.5 mls/hr IV .Q24H [facility] Rx#: [id number] Oral 360 Output: Chest Tube Drainage 240 210 30 Left Pleural 80 90 10 Mediastinal 160 120 20 Drainage 10 Left Forearm 10 Urine 245 440 160 Other: Voiding Method Indwelling Catheter Indwelling Catheter Indwelling Catheter ABP, PAP, CO, CI - Last Documented Arterial Blood Pressure 135/71 Pulmonary Artery Pressure 44/19 Cardiac Output 4.6 Cardiac Index 2.2 - Labs CBC & Chem 7: 07/26/24 04:03 07/26/24 04:03 Labs: Abnormal Lab Results - Last 24 Hours (Table) 07/25/24 07/25/24 07/25/24 Range/Units 12:03 13:40 14:55 RBC (4.30-5.90) m/uL Hgb (13.0-17.5) gm/dL Hct (39.0-53.0) % Neutrophils # (1.3-7.7) k/uL Sodium (137-145) mmol/L Carbon Dioxide (22-30) mmol/L BUN (9-20) mg/dL Creatinine (0.66-1.25) mg/dL Glucose (74-99) mg/dL POC Glucose (mg/dL) 147 H 146 H 155 H (70-110) mg/dL AST (17-59) U/L Total Protein (6.3-8.2) g/dL Albumin (3.5-5.0) g/dL 07/25/24 07/25/24 07/25/24 Range/Units 16:19 18:03 19:04 RBC (4.30-5.90) m/uL Hgb (13.0-17.5) gm/dL Hct (39.0-53.0) % Neutrophils # (1.3-7.7) k/uL Sodium (137-145) mmol/L Carbon Dioxide (22-30) mmol/L BUN (9-20) mg/dL Creatinine (0.66-1.25) mg/dL Glucose (74-99) mg/dL POC Glucose (mg/dL) 152 H 167 H 149 H (70-110) mg/dL AST (17-59) U/L Total Protein (6.3-8.2) g/dL Albumin (3.5-5.0) g/dL 07/25/24 07/26/24 07/26/24 Range/Units 19:58 00:02 00:58 RBC (4.30-5.90) m/uL Hgb (13.0-17.5) gm/dL Hct (39.0-53.0) % Neutrophils # (1.3-7.7) k/uL Sodium (137-145) mmol/L Carbon Dioxide (22-30) mmol/L BUN (9-20) mg/dL Creatinine (0.66-1.25) mg/dL Glucose (74-99) mg/dL POC Glucose (mg/dL) 141 H 124 H 131 H (70-110) mg/dL AST (17-59) U/L Total Protein (6.3-8.2) g/dL Albumin (3.5-5.0) g/dL 07/26/24 07/26/24 07/26/24 Range/Units 01:58 02:59 04:03 RBC 2.79 L (4.30-5.90) m/uL Hgb 8.5 L D (13.0-17.5) gm/dL Hct 25.7 L (39.0-53.0) % Neutrophils # 8.1 H (1.3-7.7) k/uL Sodium (137-145) mmol/L Carbon Dioxide (22-30) mmol/L BUN (9-20) mg/dL Creatinine (0.66-1.25) mg/dL Glucose (74-99) mg/dL POC Glucose (mg/dL) 126 H 124 H (70-110) mg/dL AST (17-59) U/L Total Protein (6.3-8.2) g/dL Albumin (3.5-5.0) g/dL 07/26/24 07/26/24 07/26/24 Range/Units 04:03 04:04 06:55 RBC (4.30-5.90) m/uL Hgb (13.0-17.5) gm/dL Hct (39.0-53.0) % Neutrophils # (1.3-7.7) k/uL Sodium 133 L (137-145) mmol/L Carbon Dioxide 20 L (22-30) mmol/L BUN 27 H (9-20) mg/dL Creatinine 1.35 H (0.66-1.25) mg/dL Glucose 102 H (74-99) mg/dL POC Glucose (mg/dL) 119 H 112 H (70-110) mg/dL AST 101 H (17-59) U/L Total Protein 4.8 L (6.3-8.2) g/dL Albumin 2.7 L (3.5-5.0) g/dL 07/26/24 07/26/24 Range/Units 09:22 09:56 RBC (4.30-5.90) m/uL Hgb (13.0-17.5) gm/dL Hct (39.0-53.0) % Neutrophils # (1.3-7.7) k/uL Sodium (137-145) mmol/L Carbon Dioxide (22-30) mmol/L BUN (9-20) mg/dL Creatinine (0.66-1.25) mg/dL Glucose (74-99) mg/dL POC Glucose (mg/dL) 187 H 166 H (70-110) mg/dL AST (17-59) U/L Total Protein (6.3-8.2) g/dL Albumin (3.5-5.0) g/dL
[2024-07-26] MEDS: INSULIN ASPART (NovoLOG) 100 UNIT/ML VIAL SQ SCH (11:54)
[2024-07-26] MEDS: amLODIPine 5 MG TAB PO SCH (12:55)
[2024-07-26 14:18] LABS: Allen Test Performed? Yes
[2024-07-26] MEDS: AMIODARONE 450 MG in DEXTROSE 5% IN WATER 250 ML IV PRN (14:27)
[2024-07-26 14:28] LABS: Allen Test Performed? Yes
[2024-07-26 14:29] LABS: ABG Base Excess -1.9 mmol/L; ABG HCO3 23 mmol/L (21-25); ABG Oxygen Saturation 99.1 % (94-97); ABG PCO2 36 mmHg (35-45); ABG PO2 333 mmHg (83-108); ABG TCO2 21 mmol/L (19-24)
[2024-07-26 14:30] LABS: ABG Glucose Whole Blood 91 mg/dL (75-99); ABG Lactic Acid Whole Blood 0.4 mmol/L (0.5-1.6); ABG Potassium Whole Blood 3.3 mmol/L (3.4-4.5); ABG Sodium Whole Blood 142 mmol/L (135-146)
[2024-07-26 14:31] LABS: ABG Hematocrit 35 % (34.0-46.0); ABG Ionized Calcium 4.9 mg/dL (4.5-5.3)
[2024-07-26 14:33] LABS: Allen Test Performed? Yes
[2024-07-26 14:34] LABS: ABG Base Excess -3.3 mmol/L; ABG HCO3 23 mmol/L (21-25); ABG PCO2 44 mmHg (35-45); ABG PH 7.32 (7.35-7.45); ABG PO2 120 mmHg (83-108); ABG Sodium Whole Blood 141 mmol/L (135-146); ABG TCO2 22 mmol/L (19-24)
[2024-07-26 14:35] LABS: ABG Glucose Whole Blood 100 mg/dL (75-99); ABG Hematocrit 31 % (34.0-46.0); ABG Ionized Calcium 4.8 mg/dL (4.5-5.3); ABG Lactic Acid Whole Blood 0.4 mmol/L (0.5-1.6); ABG Potassium Whole Blood 3.6 mmol/L (3.4-4.5)
[2024-07-26 14:36] LABS: ABG PCO2 34 mmHg (35-45); ABG PH 7.47 (7.35-7.45); ABG PO2 >420 mmHg (83-108); Allen Test Performed? Yes
[2024-07-26 14:37] LABS: ABG HCO3 24 mmol/L (21-25)
[2024-07-26 14:38] LABS: ABG Base Excess 24.4 mmol/L; ABG Glucose Whole Blood 90 mg/dL (75-99); ABG Lactic Acid Whole Blood 0.4 mmol/L (0.5-1.6); ABG Oxygen Saturation >99.4 % (94-97); ABG Potassium Whole Blood 4.6 mmol/L (3.4-4.5); ABG Sodium Whole Blood 142 mmol/L (135-146)
[2024-07-26 14:39] LABS: ABG Hematocrit 23 % (34.0-46.0)
[2024-07-26 14:40] LABS: Allen Test Performed? Yes
[2024-07-26 14:40] LABS: ABG Ionized Calcium 4.1 mg/dL (4.5-5.3)
[2024-07-26 14:41] LABS: ABG Base Excess 0.3 mmol/L; ABG Glucose Whole Blood 106 mg/dL (75-99); ABG HCO3 24 mmol/L (21-25); ABG Lactic Acid Whole Blood 0.5 mmol/L (0.5-1.6); ABG Oxygen Saturation >99.4 % (94-97); ABG PCO2 33 mmHg (35-45); ABG PH 7.47 (7.35-7.45); ABG PO2 >420 mmHg (83-108); ABG Potassium Whole Blood 4.2 mmol/L (3.4-4.5); ABG Sodium Whole Blood 141 mmol/L (135-146)
[2024-07-26 14:42] LABS: ABG Hematocrit 24 % (34.0-46.0); ABG Ionized Calcium 4.2 mg/dL (4.5-5.3)
[2024-07-26 14:45] LABS: ABG HCO3 24 mmol/L (21-25); ABG PCO2 37 mmHg (35-45); ABG PH 7.41 (7.35-7.45); ABG PO2 >420 mmHg (83-108); Allen Test Performed? Yes
[2024-07-26 14:46] LABS: ABG Base Excess -0.9 mmol/L; ABG Glucose Whole Blood 114 mg/dL (75-99); ABG Hematocrit 26 % (34.0-46.0); ABG Ionized Calcium 4.3 mg/dL (4.5-5.3); ABG Lactic Acid Whole Blood 0.6 mmol/L (0.5-1.6); ABG Oxygen Saturation >99.4 % (94-97); ABG Potassium Whole Blood 4.4 mmol/L (3.4-4.5); ABG Sodium Whole Blood 142 mmol/L (135-146)
[2024-07-26 14:47] LABS: ABG PCO2 38 mmHg (35-45); ABG PH 7.41 (7.35-7.45); ABG PO2 >420 mmHg (83-108); Allen Test Performed? Yes
[2024-07-26 14:48] LABS: ABG Base Excess -0.5 mmol/L; ABG Glucose Whole Blood 111 mg/dL (75-99); ABG HCO3 24 mmol/L (21-25); ABG Lactic Acid Whole Blood 0.5 mmol/L (0.5-1.6); ABG Oxygen Saturation 99.3 % (94-97); ABG Potassium Whole Blood 4.3 mmol/L (3.4-4.5); ABG Sodium Whole Blood 142 mmol/L (135-146); ABG TCO2 23 mmol/L (19-24)
[2024-07-26 14:49] LABS: ABG Hematocrit 24 % (34.0-46.0); ABG Ionized Calcium 4.4 mg/dL (4.5-5.3)
[2024-07-26 14:50] LABS: ABG Base Excess -0.6 mmol/L; ABG HCO3 24 mmol/L (21-25); ABG Oxygen Saturation >99.4 % (94-97); ABG PCO2 37 mmHg (35-45); ABG PH 7.42 (7.35-7.45); ABG PO2 >420 mmHg (83-108); ABG Sodium Whole Blood 142 mmol/L (135-146); Allen Test Performed? Yes
[2024-07-26 14:51] LABS: ABG Glucose Whole Blood 109 mg/dL (75-99); ABG Hematocrit 22 % (34.0-46.0); ABG Ionized Calcium 4.3 mg/dL (4.5-5.3); ABG Lactic Acid Whole Blood 0.6 mmol/L (0.5-1.6); ABG Potassium Whole Blood 4.2 mmol/L (3.4-4.5)
[2024-07-26 14:57] LABS: ABG Base Excess -2.2 mmol/L; ABG HCO3 23 mmol/L (21-25); ABG PCO2 41 mmHg (35-45); ABG PH 7.36 (7.35-7.45); ABG PO2 419 mmHg (83-108)
[2024-07-26 14:58] LABS: ABG Glucose Whole Blood 107 mg/dL (75-99); ABG Hematocrit 28 % (34.0-46.0); ABG Ionized Calcium 4.6 mg/dL (4.5-5.3); ABG Lactic Acid Whole Blood 0.6 mmol/L (0.5-1.6); ABG Oxygen Saturation >99.4 % (94-97); ABG Potassium Whole Blood 3.9 mmol/L (3.4-4.5); ABG Sodium Whole Blood 143 mmol/L (135-146)
--- NOTE | 2024-07-26 16:22 | P.PN ---
Subjective Progress Note Date: 07/26/24 Principal diagnosis: Triple-vessel coronary artery disease /status post CABG postoperative day #2 This is a 64-year-old male patient with known history of hypertension hyperlipi demia prostate cancer and remote history of smoking, came into the hospital because of chest pain and the patient was found to have elevated troponins and he ruled in for non-ST segment elevation myocardial infarction. Subsequent cardiac catheterization showed 90% LAD, 70% first obtuse marginal branch, subtotally occluded PLV, 70% proximal RCA and 60 to 70% mid RCA. Following that, patient was seen by cardiothoracic surgery and the patient is being considered for bypass surgery. In fact, the patient will be taken for bypass tomorrow. CAT scan of the chest was done on 07/20/2024 and showed some scattered bilateral pulmonary nodules that needs to be further monitored on outpatient basis. These are nonspecific findings. No other acute abnormalities have been noted. Echocardiogram done on 07/20/2024 preserved LV function without any significant abnormalities. The white cell count is at 7.1 with a hemoglobin 12.4 and a platelet count of 276. Electrolytes are all within normal limits. The patient is currently on room air oxygen. Is ambulating. Bedside spirometry was done and his FEV1 is in order of 76% of predicted. Patient was evaluated today 07/24/2024, patient underwent CABG, for triple-vessel coronary artery disease, brought back to the ICU intubated and mechanically vent ilated, and I am seeing him on follow-up. Patient is on assist-control rate of 12 tidal volume 500 FiO2 100% and PEEP of 5 ABG showed a pO2 of 141 pCO2 47 pH of 7.32 hence his FiO2 was cut down and his rate was increased to 14. Patient has cardiac output of 5.6, cardiac index of 2.7, patient is on multiple drips including Cleviprex at 8 mg/h, nitro at 5 mcg /min, and he is on propofol at 30 mcg/kg/min chest x-ray postoperatively showed nasogastric tube in distal esophagus, endotracheal tube above the adwoa, and no acute process noted.Cannot rule out pneumonia WBC 13.9 hemoglobin is 11.4 Patient is sedated, on propofol Patient was evaluated today on 07/25/2024, patient isPOD #1 coronary artery bypass grafting x 5 vessels (left internal mammary artery to the left anterior descending coronary artery, radial artery to the obtuse marginal coronary artery, saphenous vein graft to the diagonal coronary artery, saphenous vein graft to the posterior descending coronary artery, saphenous vein graft to the posterior lateral branch of the right coronary artery), endoscopic harvest left radial artery, patient is in the ICU, extubated last night at 6:36 PM, presently on room air, O2 sats 93%, patient is already ambulating with assistance, not requiring any inotropes or pressors, he is only on insulin drip. His cardiac output is 4.3 with a cardiac index of 2.0. Pressure 32/29 CVP of 6. Chest x- ray is showing minimal bibasilar atelectasis left more so than right, patient is achieving over 1500 cc with incentive spirometry, overall his postoperative course is uneventful Patient was evaluated today on 07/26/2024, he is now postoperative day #2.coronary artery bypass grafting x 5 vessels (left internal mammary artery to the left anterior descending coronary artery, radial artery to the obtuse marginal coronary artery, saphenous vein graft to the diagonal coronary artery, saphenous vein graft to the posterior descending coronary artery, saphenous vein graft to the posterior lateral branch of the right coronary artery), patient is on room air, not in any distress, however he developed atrial fibrillation with RVR and he required amiodarone bolus and placed on amiodarone drip at 1 mg/min. Patient denies any shortness of breath denies any chest pain, continues to have chest tubes in place and continues to have right sided Cordis. He is achieving over 1500 cc on his incentive spirometry. Patient is already ambulating with assistance in the hallway. He is hemodynamically stable, not requiring any inotropes or any pressors. Chest x-ray showed minimal as expected left basilar atelectasis, no acute processes noted Objective - Vital Signs Vital signs: Vital Signs Temp 97.9 F 07/26/24 12:00 Pulse 79 07/26/24 15:40 Resp 16 07/26/24 14:00 BP 136/73 07/26/24 14:00 Pulse Ox 92 L 07/26/24 14:00 FiO2 21 07/25/24 08:11 Intake & Output 07/25/24 07/26/24 07/26/24 18:59 06:59 18:59 Intake Total 1435.677 676.963 230.064 Output Total 495 650 340 Balance 940.677 26.963 -109.936 Weight 94.7 kg 97.3 kg Intake: IV 769 652 227 ACETAMINOPHEN IV (For NPO 100 ) 1,000 mg In Empty Bag 1 bag @ 400 mls/hr IVPB Q6H [facility] Rx#:[id number] Pressure Bag 69 72 27 Sodium Chloride 0.9% 1, 550 580 200 000 ml @ 30 mls/hr IV . Q24H [facility] Rx#:[id number] ceFAZolin 2 gm In Sodium 50 Chloride 0.9% 50 ml @ 100 mls/hr IVPB ONCE ONE Rx# :[id number] Intake, IV Titration 306.677 24.963 3.064 Amount Albumin Human 5% 250 ml 250 In Empty Bag 1 bag @ 250 mls/hr IVPB Q1HR PRN Rx#: [id number] Insulin Regular 100 unit 30.502 24.963 3.064 In Sodium Chloride 0.9% 100 ml @ Per Protocol IV .Q0M [facility] Rx#:[id number] Nitroglycerin-D5w Pmx 50 26.175 mg In Dextrose/Water 1 250ml.bag @ 5 MCG/MIN 1.5 mls/hr IV .Q24H [facility] Rx#: [id number] Oral 360 Output: Chest Tube Drainage 240 210 80 Left Pleural 80 90 30 Mediastinal 160 120 50 Drainage 10 Left Forearm 10 Urine 245 440 260 Other: Voiding Method Indwelling Catheter Indwelling Catheter Indwelling Catheter # Voids 1 ABP, PAP, CO, CI - Last Documented Arterial Blood Pressure 135/71 Pulmonary Artery Pressure 44/19 Cardiac Output 4.6 Cardiac Index 2.2 - Exam General:: revealed a 64-year-old white male in no distress, on room air HEENT: Neck is supple, no JVD, no lymphadenopathy. RESPIRATORY: Good breath sound bilaterally no crackles rhonchi or wheezes CARDIOVASCULAR: Regular rhythm and rate. S1 and S2 present, negative for S3, gallop or murmur. GASTROINTESTINAL: Soft nontender No rebound no guarding INTEGUMENTARY: Skin is warm and dry with no evidence of clubbing or cyanosis. NEUROLOGIC: Alert oriented x 3 no gross focal deficit MUSKULOSKELETAL: No deformities noted, no limitation range of motion PSYCHIATRIC: Normal mood affect and normal mental status examination - Labs CBC & Chem 7: 10/02/24 04:03 07/26/24 04:03 Labs: Abnormal Lab Results - Last 24 Hours (Table) 07/24/24 07/24/24 07/24/24 Range/Units 08:28 08:28 08:28 RBC (4.30-5.90) m/uL Hgb (13.0-17.5) gm/dL Hct (39.0-53.0) % Neutrophils # (1.3-7.7) k/uL ABG pH (7.35-7.45) ABG pCO2 (35-45) mmHg ABG pO2 419 H >420 H 333 H (83-108) mmHg ABG O2 Saturation >99.4 H >99.4 H 99.1 H (94-97) % ABG Hematocrit 28 L 26 L (34.0-46.0) % ABG Potassium 3.3 L (3.4-4.5) mmol/L ABG Ionized Calcium 4.3 L (4.5-5.3) mg/dL ABG Glucose 107 H 114 H (75-99) mg/dL ABG Lactic Acid 0.4 L (0.5-1.6) mmol/L Hemoglobin 9.2 L 8.4 L 11.3 L (13.0-17.5) gm/dL Sodium (137-145) mmol/L Carbon Dioxide (22-30) mmol/L BUN (9-20) mg/dL Creatinine (0.66-1.25) mg/dL Glucose (74-99) mg/dL POC Glucose (mg/dL) (70-110) mg/dL AST (17-59) U/L Total Protein (6.3-8.2) g/dL Albumin (3.5-5.0) g/dL Arterial Blood Potassium 3.3 L (3.4-4.5) mmol/L Arterial Blood Glucose 107 H 114 H (75-99) mg/dL 07/24/24 07/24/24 07/24/24 Range/Units 10:00 11:04 11:42 RBC (4.30-5.90) m/uL Hgb (13.0-17.5) gm/dL Hct (39.0-53.0) % Neutrophils # (1.3-7.7) k/uL ABG pH 7.32 L 7.47 H 7.47 H (7.35-7.45) ABG pCO2 34 L 33 L (35-45) mmHg ABG pO2 120 H >420 H >420 H (83-108) mmHg ABG O2 Saturation 98.0 H >99.4 H >99.4 H (94-97) % ABG Hematocrit 31 L 23 L 24 L (34.0-46.0) % ABG Potassium 4.6 H (3.4-4.5) mmol/L ABG Ionized Calcium 4.1 L 4.2 L (4.5-5.3) mg/dL ABG Glucose 100 H 106 H (75-99) mg/dL ABG Lactic Acid 0.4 L 0.4 L (0.5-1.6) mmol/L Hemoglobin 10.0 L 7.6 L 7.7 L (13.0-17.5) gm/dL Sodium (137-145) mmol/L Carbon Dioxide (22-30) mmol/L BUN (9-20) mg/dL Creatinine (0.66-1.25) mg/dL Glucose (74-99) mg/dL POC Glucose (mg/dL) (70-110) mg/dL AST (17-59) U/L Total Protein (6.3-8.2) g/dL Albumin (3.5-5.0) g/dL Arterial Blood Potassium 4.6 H (3.4-4.5) mmol/L Arterial Blood Glucose 100 H 106 H (75-99) mg/dL 07/24/24 07/24/24 07/25/24 Range/Units 12:53 13:17 16:19 RBC (4.30-5.90) m/uL Hgb (13.0-17.5) gm/dL Hct (39.0-53.0) % Neutrophils # (1.3-7.7) k/uL ABG pH (7.35-7.45) ABG pCO2 (35-45) mmHg ABG pO2 >420 H >420 H (83-108) mmHg ABG O2 Saturation 99.3 H >99.4 H (94-97) % ABG Hematocrit 24 L 22 L (34.0-46.0) % ABG Potassium (3.4-4.5) mmol/L ABG Ionized Calcium 4.4 L 4.3 L (4.5-5.3) mg/dL ABG Glucose 111 H 109 H (75-99) mg/dL ABG Lactic Acid (0.5-1.6) mmol/L Hemoglobin 7.9 L 7.3 L (13.0-17.5) gm/dL Sodium (137-145) mmol/L Carbon Dioxide (22-30) mmol/L BUN (9-20) mg/dL Creatinine (0.66-1.25) mg/dL Glucose (74-99) mg/dL POC Glucose (mg/dL) 152 H (70-110) mg/dL AST (17-59) U/L Total Protein (6.3-8.2) g/dL Albumin (3.5-5.0) g/dL Arterial Blood Potassium (3.4-4.5) mmol/L Arterial Blood Glucose 111 H 109 H (75-99) mg/dL 07/25/24 07/25/24 07/25/24 Range/Units 18:03 19:04 19:58 RBC (4.30-5.90) m/uL Hgb (13.0-17.5) gm/dL Hct (39.0-53.0) % Neutrophils # (1.3-7.7) k/uL ABG pH (7.35-7.45) ABG pCO2 (35-45) mmHg ABG pO2 (83-108) mmHg ABG O2 Saturation (94-97) % ABG Hematocrit (34.0-46.0) % ABG Potassium (3.4-4.5) mmol/L ABG Ionized Calcium (4.5-5.3) mg/dL ABG Glucose (75-99) mg/dL ABG Lactic Acid (0.5-1.6) mmol/L Hemoglobin (13.0-17.5) gm/dL Sodium (137-145) mmol/L Carbon Dioxide (22-30) mmol/L BUN (9-20) mg/dL Creatinine (0.66-1.25) mg/dL Glucose (74-99) mg/dL POC Glucose (mg/dL) 167 H 149 H 141 H (70-110) mg/dL AST (17-59) U/L Total Protein (6.3-8.2) g/dL Albumin (3.5-5.0) g/dL Arterial Blood Potassium (3.4-4.5) mmol/L Arterial Blood Glucose (75-99) mg/dL 07/26/24 07/26/24 07/26/24 Range/Units 00:02 00:58 01:58 RBC (4.30-5.90) m/uL Hgb (13.0-17.5) gm/dL Hct (39.0-53.0) % Neutrophils # (1.3-7.7) k/uL ABG pH (7.35-7.45) ABG pCO2 (35-45) mmHg ABG pO2 (83-108) mmHg ABG O2 Saturation (94-97) % ABG Hematocrit (34.0-46.0) % ABG Potassium (3.4-4.5) mmol/L ABG Ionized Calcium (4.5-5.3) mg/dL ABG Glucose (75-99) mg/dL ABG Lactic Acid (0.5-1.6) mmol/L Hemoglobin (13.0-17.5) gm/dL Sodium (137-145) mmol/L Carbon Dioxide (22-30) mmol/L BUN (9-20) mg/dL Creatinine (0.66-1.25) mg/dL Glucose (74-99) mg/dL POC Glucose (mg/dL) 124 H 131 H 126 H (70-110) mg/dL AST (17-59) U/L Total Protein (6.3-8.2) g/dL Albumin (3.5-5.0) g/dL Arterial Blood Potassium (3.4-4.5) mmol/L Arterial Blood Glucose (75-99) mg/dL 07/26/24 07/26/24 07/26/24 Range/Units 02:59 04:03 04:03 RBC 2.79 L (4.30-5.90) m/uL Hgb 8.5 L D (13.0-17.5) gm/dL Hct 25.7 L (39.0-53.0) % Neutrophils # 8.1 H (1.3-7.7) k/uL ABG pH (7.35-7.45) ABG pCO2 (35-45) mmHg ABG pO2 (83-108) mmHg ABG O2 Saturation (94-97) % ABG Hematocrit (34.0-46.0) % ABG Potassium (3.4-4.5) mmol/L ABG Ionized Calcium (4.5-5.3) mg/dL ABG Glucose (75-99) mg/dL ABG Lactic Acid (0.5-1.6) mmol/L Hemoglobin (13.0-17.5) gm/dL Sodium 133 L (137-145) mmol/L Carbon Dioxide 20 L (22-30) mmol/L BUN 27 H (9-20) mg/dL Creatinine 1.35 H (0.66-1.25) mg/dL Glucose 102 H (74-99) mg/dL POC Glucose (mg/dL) 124 H (70-110) mg/dL AST 101 H (17-59) U/L Total Protein 4.8 L (6.3-8.2) g/dL Albumin 2.7 L (3.5-5.0) g/dL Arterial Blood Potassium (3.4-4.5) mmol/L Arterial Blood Glucose (75-99) mg/dL 07/26/24 07/26/24 07/26/24 Range/Units 04:04 06:55 09:22 RBC (4.30-5.90) m/uL Hgb (13.0-17.5) gm/dL Hct (39.0-53.0) % Neutrophils # (1.3-7.7) k/uL ABG pH (7.35-7.45) ABG pCO2 (35-45) mmHg ABG pO2 (83-108) mmHg ABG O2 Saturation (94-97) % ABG Hematocrit (34.0-46.0) % ABG Potassium (3.4-4.5) mmol/L ABG Ionized Calcium (4.5-5.3) mg/dL ABG Glucose (75-99) mg/dL ABG Lactic Acid (0.5-1.6) mmol/L Hemoglobin (13.0-17.5) gm/dL Sodium (137-145) mmol/L Carbon Dioxide (22-30) mmol/L BUN (9-20) mg/dL Creatinine (0.66-1.25) mg/dL Glucose (74-99) mg/dL POC Glucose (mg/dL) 119 H 112 H 187 H (70-110) mg/dL AST (17-59) U/L Total Protein (6.3-8.2) g/dL Albumin (3.5-5.0) g/dL Arterial Blood Potassium (3.4-4.5) mmol/L Arterial Blood Glucose (75-99) mg/dL 07/26/24 07/26/24 Range/Units 09:56 11:37 RBC (4.30-5.90) m/uL Hgb (13.0-17.5) gm/dL Hct (39.0-53.0) % Neutrophils # (1.3-7.7) k/uL ABG pH (7.35-7.45) ABG pCO2 (35-45) mmHg ABG pO2 (83-108) mmHg ABG O2 Saturation (94-97) % ABG Hematocrit (34.0-46.0) % ABG Potassium (3.4-4.5) mmol/L ABG Ionized Calcium (4.5-5.3) mg/dL ABG Glucose (75-99) mg/dL ABG Lactic Acid (0.5-1.6) mmol/L Hemoglobin (13.0-17.5) gm/dL Sodium (137-145) mmol/L Carbon Dioxide (22-30) mmol/L BUN (9-20) mg/dL Creatinine (0.66-1.25) mg/dL Glucose (74-99) mg/dL POC Glucose (mg/dL) 166 H 129 H (70-110) mg/dL AST (17-59) U/L Total Protein (6.3-8.2) g/dL Albumin (3.5-5.0) g/dL Arterial Blood Potassium (3.4-4.5) mmol/L Arterial Blood Glucose (75-99) mg/dL Assessment and Plan Assessment: Impression: POD #2 coronary artery bypass grafting x 5 vessels (left internal mammary artery to the left anterior descending coronary artery, radial artery to the obtuse marginal coronary artery, saphenous vein graft to the diagonal coronary artery, saphenous vein graft to the posterior descending coronary artery, saphenous vein graft to the posterior lateral branch of the right coronary artery), Acute non-ST elevation myocardial infarction on this admission Postoperative atrial fibrillation with RVR, expected patient is on amiodarone drip as per protocol. Benign essential hypertension Dyslipidemia Ex-smoker, preoperative FEV1 of 76% History of prostate cancer pending radiation therapy Postoperative atelectasis, expected patient is achieving over 500 cc on his incentive spirometry recommendation: Continue maximal medical therapy with beta-blockers Plavix statin and aspirin Continue amiodarone as per protocol Continue incentive spirometry Continue ambulation Continue GI and DVT prophylaxis Continue pain control/management Discontinue unnecessary catheters in the next 24 hours Continue daily x-rays of the chest and daily labs Will continue to follow Time with Patient: Less than 30
[2024-07-26 19:58] LABS: Glucose,Whole Blood 141 mg/dL (70-110)
[2024-07-26] MEDS: AMIODARONE 200 MG TAB PO SCH (21:44)
[2024-07-26] MEDS: MD COMMUNICATION TO PHARMACY 1 EACH MISC PO ONE ×4 (22:29→22:30)
[2024-07-26] MEDS: ALBUMIN HUMAN 25% 50 ML in EMPTY BAG 1 BAG IVPB ONE (22:30)
[2024-07-26] MEDS: ALBUMIN HUMAN 5% 500 ML in EMPTY BAG 1 BAG IVPB ONE ×6 (22:31→22:32)
[2024-07-26] MEDS: CLEVIDIPINE BUTYRATE 25 MG in EMPTY BAG 1 BAG IV SCH (22:31)
[2024-07-26] MEDS: CHLORHEXIDINE GLUCONATE 15 ML CUP MUCOUS MEM ONE (22:31)
[2024-07-26] MEDS: DILTIAZEM 125 MG in SODIUM CHLORIDE 0.9% 100 ML IV SCH (22:31)
[2024-07-26] MEDS: CALCIUM CHLORIDE 100 MG/ML 10 ML SYRINGE IVP ONE (22:33)
[2024-07-26] MEDS: ceFAZolin 1,000 MG in SODIUM CHLORIDE 0.9% IRRIGATIO 1,000 ML IRRIGATION ONE (22:33)
[2024-07-26] MEDS: ELECTROLYTE-A SOLUTION 1,000 ML with POTASSIUM CHLORIDE 40 MEQ, MAGNESIUM SULFATE 16 ME... IV ONE (22:33)
[2024-07-26] MEDS: ELECTROLYTE-A SOLUTION 1,000 ML with POTASSIUM CHLORIDE 100 MEQ, MAGNESIUM SULFATE 16 M... IV ONE (22:33)
[2024-07-26] MEDS: HEPARIN SODIUM,PORCINE (1 ML) 5,000 UNIT in SODIUM CHLORIDE 0.9% 500 ML 500 ML IV ONE (22:38)
[2024-07-26] MEDS: HEPARIN SODIUM 1,000 UN/ML (10ML VL) IV ONE (22:38)
[2024-07-26] MEDS: MAGNESIUM SULFATE 16.24 MEQ in EMPTY SYRINGE 1 SYR IV ONE (22:39)
[2024-07-26] MEDS: NITROGLYCERIN-D5W PMX 50 MG in DEXTROSE/WATER 1 250ML.BAG IV SCH (22:39)
[2024-07-26] MEDS: MANNITOL 25% 12.5 GM/50 ML VIAL IV ONE ×2 (22:39)
[2024-07-26] MEDS: NITROGLYCERIN-D5W PMX 25 MG/250 ML BTL IV ONE (22:39)
[2024-07-26] MEDS: PHENYLEPHRINE 40 MG in SODIUM CHLORIDE 0.9% 250 ML IV ONE (22:40)
[2024-07-26] MEDS: SODIUM BICARB 8.4% 50 ML SYR (1 MEQ/ML) IV ONE (22:40)
[2024-07-26] MEDS: PROTAMINE SULFATE 10 MG/ML 25 ML VIAL IV ONE (22:40)
[2024-07-26] MEDS: TRANEXAMIC ACID 2,000 MG in SODIUM CHLORIDE 0.9% 80 ML IV ONE (22:40)
[2024-07-26] MEDS: PHENYLEPHRINE 10 MG/ML VIAL IV ONE (22:40)
[2024-07-26] MEDS: PAPAVERINE 360 MG in SODIUM CHLORIDE 0.9% 90 ML IV ONE (22:40)
[2024-07-26] MEDS: PROTAMINE SULFATE 250 MG in EMPTY BAG 1 BAG IV ONE (22:40)
[2024-07-27 06:30] LABS: Glucose,Whole Blood 123 mg/dL (70-110)
[2024-07-27 06:31] LABS: Basophils % (A) 0 %; Eosinophils # (A) 0.1 k/uL (0-0.7); Eosinophils % (A) 2 %; HCT 28.8 % (39.0-53.0); HGB 9.3 gm/dL (13.0-17.5); Lymphocytes % (A) 12 %; MCH 29.8 pg (25.0-35.0); MCHC 32.2 g/dL (31.0-37.0); MCV 92.5 fL (80.0-100.0); Mean Platelet Volume 8.1; Monocytes # (A) 0.5 k/uL (0-1.0); Monocytes % (A) 6 %; Neutrophils # (A) 6.4 k/uL (1.3-7.7); Neutrophils % (A) 79 %; Platelet Count 240 k/uL (150-450); RBC 3.12 m/uL (4.30-5.90); RDW 13.5 % (11.5-15.5); WBC 8.2 k/uL (3.8-10.6)
[2024-07-27 06:50] LABS: ALT 40 U/L (4-49); AST 94 U/L (17-59); African American GFR (CKD) >90 (>60 ml/min/1.73 sqM); Albumin 2.9 g/dL (3.5-5.0); Alkaline Phosphatase 56 U/L (38-126); Anion Gap 6 mmol/L; Blood Urea Nitrogen 18 mg/dL (9-20); Calcium 8.6 mg/dL (8.4-10.2); Carbon Dioxide 21 mmol/L (22-30); Chloride 108 mmol/L (98-107); Glucose 112 mg/dL (74-99); Non-African American GFR(CKD) >90 (>60 ml/min/1.73 sqM); Potassium 3.9 mmol/L (3.5-5.1); Sodium 135 mmol/L (137-145); Total Bilirubin 0.6 mg/dL (0.2-1.3); Total Protein 5.1 g/dL (6.3-8.2)
--- NOTE | 2024-07-27 07:57 | P.PN ---
Subjective Progress Note Date: 07/27/24 Principal diagnosis: Triple-vessel coronary artery disease, non-STEMI this admission. History of hypertension, hyperlipidemia, previous tobacco dependence, daily wine usage, prostate cancer, pending radiation therapy POD #3 coronary artery bypass grafting x 5 vessels (left internal mammary artery to the left anterior descending coronary artery, radial artery to the obtuse mar ginal coronary artery, saphenous vein graft to the diagonal coronary artery, saphenous vein graft to the posterior descending coronary artery, saphenous vein graft to the posterior lateral branch of the right coronary artery), endoscopic harvest left radial artery, endoscopic harvest of bilateral greater saphenous veins, ligation of left atrial appendage using a 35mm ArtiClip, intraoperative epiaortic ultrasound, graft flow measurements using the [place] system, intraoperative transesophageal echocardiogram completed by anesthesia. Acute blood loss anemia, expected given hemodilution and cardiopulmonary bypass Paroxysmal atrial fibrillation, not expected but known common occurrence after open heart surgery, currently sinus The patient was seen and examined this morning sitting up in in recliner on the cardiac stepdown unit in no acute distress. States pain is controlled on current medication regimen, denies shortness of breath. Had brief atrial fibrillation yesterday with conversion to sinus rhythm after second amnio bolus. Currently sinus rhythm, hemodynamically stable. Currently on 2 L nasal cannula with oxygen saturation in the mid to low 90s, able to achieve 1500 mL on his incentive spirometry. Chest x-ray, labs reviewed. Left pleural chest tube remains. Patient has been ambulatory multiple times on the hallway without difficulty. No other new concerns. Objective - Vital Signs Vital signs: Vital Signs Temp 98.2 F 07/27/24 07:43 Pulse 75 07/27/24 07:43 Resp 16 07/27/24 07:43 BP 143/80 07/27/24 07:43 Pulse Ox 96 07/27/24 07:43 FiO2 21 07/25/24 08:11 Intake & Output 07/26/24 07/27/24 07/27/24 18:59 06:59 18:59 Intake Total 230.064 260.005 Output Total 340 580 Balance -109.936 -319.995 Weight 97.2 kg Intake: IV 227 20 Invasive Line 2 10 Invasive Line 6 10 Pressure Bag 27 Sodium Chloride 0.9% 1, 200 000 ml @ 30 mls/hr IV . Q[facility]H [facility] Rx#:[id number] Intake, IV Titration 3.064 240.005 Amount Amiodarone 450 mg In 240.005 Dextrose 5% in Water 250 ml @ 0.5 MG/MIN 16.667 mls/hr IV .Q15H PRN Rx#: [id number] Insulin Regular 100 unit 3.064 In Sodium Chloride 0.9% 100 ml @ Per Protocol IV .Q0M [facility] Rx#:[id number] Output: Chest Tube Drainage 80 230 Left Pleural 30 Mediastinal 50 230 Urine 260 350 Other: Voiding Method Indwelling Catheter Toilet Urinal # Voids 1 1 # Bowel Movements 1 1 ABP, PAP, CO, CI - Last Documented Arterial Blood Pressure 135/71 Pulmonary Artery Pressure 44/19 Cardiac Output 4.6 Cardiac Index 2.2 - Exam CONSTITUTIONAL: Appears comfortable, cooperative, no acute distress RESPIRATORY: Lungs sounds diminished bilaterally. Respirations even, nonlabored. Currently on 2 L nasal cannula with oxygen saturation 93%. Able to achieve 1500 mL on incentive spirometry. Strong nonproductive cough. CARDIOVASCULAR: S1, S2 present. Regular rate and rhythm, sinus rhythm on telemetry. Sternum stable. Palpable peripheral pulses bilaterally. No edema present. No calf pain or tenderness noted. Heart hugger in place with patient demonstrating appropriate use. Antiembolism stockings, SCDs present. GASTROINTESTINAL: Abdomen soft, nontender, nondistended. Active bowel sounds present 4 quadrants. Tolerating diet. Positive bowel movement 10/2 GENITOURINARY: Continues to void, measured urine output 610 mL in the last 24 hours +2 voids which were not measured INTEGUMENTARY: Skin is warm and dry with evidence of good perfusion. Anterior chest incision well approximated and covered with dry intact dressing. Bilateral lower extremity EVH sites as well as left radial artery harvest site well approximated without redness or drainage. NEUROLOGIC: Cranial nerves II through XII intact MUSKULOSKELETAL: Able to move all extremities, strength equal bilaterally, gait normal PSYCHIATRIC: Alert and oriented to person place and time, appropriate affect, intact judgment and insight INVASIVE LINES AND TUBES: Left pleural chest tube present and connected to wall suction, no air leaks present, 180 mL serosanguineous drainage overnight, 250 mL in the last 24 hours. A/V epicardial pacemaker wires present, grounded - Allied health notes Allied health notes reviewed: nursing - Labs CBC & Chem 7: 07/27/24 06:02 07/27/24 06:02 Labs: Abnormal Lab Results - Last 24 Hours (Table) 07/24/24 07/24/24 07/24/24 Range/Units 08:28 08:28 08:28 RBC (4.30-5.90) m/uL Hgb (13.0-17.5) gm/dL Hct (39.0-53.0) % ABG pH (7.35-7.45) ABG pCO2 (35-45) mmHg ABG pO2 419 H >420 H 333 H (83-108) mmHg ABG O2 Saturation >99.4 H >99.4 H 99.1 H (94-97) % ABG Hematocrit 28 L 26 L (34.0-46.0) % ABG Potassium 3.3 L (3.4-4.5) mmol/L ABG Ionized Calcium 4.3 L (4.5-5.3) mg/dL ABG Glucose 107 H 114 H (75-99) mg/dL ABG Lactic Acid 0.4 L (0.5-1.6) mmol/L Hemoglobin 9.2 L 8.4 L 11.3 L (13.0-17.5) gm/dL Sodium (137-145) mmol/L Chloride (98-107) mmol/L Carbon Dioxide (22-30) mmol/L Glucose (74-99) mg/dL POC Glucose (mg/dL) (70-110) mg/dL AST (17-59) U/L Total Protein (6.3-8.2) g/dL Albumin (3.5-5.0) g/dL Arterial Blood Potassium 3.3 L (3.4-4.5) mmol/L Arterial Blood Glucose 107 H 114 H (75-99) mg/dL 07/24/24 07/24/24 07/24/24 Range/Units 10:00 11:04 11:42 RBC (4.30-5.90) m/uL Hgb (13.0-17.5) gm/dL Hct (39.0-53.0) % ABG pH 7.32 L 7.47 H 7.47 H (7.35-7.45) ABG pCO2 34 L 33 L (35-45) mmHg ABG pO2 120 H >420 H >420 H (83-108) mmHg ABG O2 Saturation 98.0 H >99.4 H >99.4 H (94-97) % ABG Hematocrit 31 L 23 L 24 L (34.0-46.0) % ABG Potassium 4.6 H (3.4-4.5) mmol/L ABG Ionized Calcium 4.1 L 4.2 L (4.5-5.3) mg/dL ABG Glucose 100 H 106 H (75-99) mg/dL ABG Lactic Acid 0.4 L 0.4 L (0.5-1.6) mmol/L Hemoglobin 10.0 L 7.6 L 7.7 L (13.0-17.5) gm/dL Sodium (137-145) mmol/L Chloride (98-107) mmol/L Carbon Dioxide (22-30) mmol/L Glucose (74-99) mg/dL POC Glucose (mg/dL) (70-110) mg/dL AST (17-59) U/L Total Protein (6.3-8.2) g/dL Albumin (3.5-5.0) g/dL Arterial Blood Potassium 4.6 H (3.4-4.5) mmol/L Arterial Blood Glucose 100 H 106 H (75-99) mg/dL 07/24/24 07/24/24 07/26/24 Range/Units 12:53 13:17 09:22 RBC (4.30-5.90) m/uL Hgb (13.0-17.5) gm/dL Hct (39.0-53.0) % ABG pH (7.35-7.45) ABG pCO2 (35-45) mmHg ABG pO2 >420 H >420 H (83-108) mmHg ABG O2 Saturation 99.3 H >99.4 H (94-97) % ABG Hematocrit 24 L 22 L (34.0-46.0) % ABG Potassium (3.4-4.5) mmol/L ABG Ionized Calcium 4.4 L 4.3 L (4.5-5.3) mg/dL ABG Glucose 111 H 109 H (75-99) mg/dL ABG Lactic Acid (0.5-1.6) mmol/L Hemoglobin 7.9 L 7.3 L (13.0-17.5) gm/dL Sodium (137-145) mmol/L Chloride (98-107) mmol/L Carbon Dioxide (22-30) mmol/L Glucose (74-99) mg/dL POC Glucose (mg/dL) 187 H (70-110) mg/dL AST (17-59) U/L Total Protein (6.3-8.2) g/dL Albumin (3.5-5.0) g/dL Arterial Blood Potassium (3.4-4.5) mmol/L Arterial Blood Glucose 111 H 109 H (75-99) mg/dL 07/26/24 07/26/24 07/26/24 Range/Units 09:56 11:37 19:57 RBC (4.30-5.90) m/uL Hgb (13.0-17.5) gm/dL Hct (39.0-53.0) % ABG pH (7.35-7.45) ABG pCO2 (35-45) mmHg ABG pO2 (83-108) mmHg ABG O2 Saturation (94-97) % ABG Hematocrit (34.0-46.0) % ABG Potassium (3.4-4.5) mmol/L ABG Ionized Calcium (4.5-5.3) mg/dL ABG Glucose (75-99) mg/dL ABG Lactic Acid (0.5-1.6) mmol/L Hemoglobin (13.0-17.5) gm/dL Sodium (137-145) mmol/L Chloride (98-107) mmol/L Carbon Dioxide (22-30) mmol/L Glucose (74-99) mg/dL POC Glucose (mg/dL) 166 H 129 H 141 H (70-110) mg/dL AST (17-59) U/L Total Protein (6.3-8.2) g/dL Albumin (3.5-5.0) g/dL Arterial Blood Potassium (3.4-4.5) mmol/L Arterial Blood Glucose (75-99) mg/dL 07/27/24 07/27/24 07/27/24 Range/Units 06:00 06:02 06:02 RBC 3.12 L (4.30-5.90) m/uL Hgb 9.3 L (13.0-17.5) gm/dL Hct 28.8 L (39.0-53.0) % ABG pH (7.35-7.45) ABG pCO2 (35-45) mmHg ABG pO2 (83-108) mmHg ABG O2 Saturation (94-97) % ABG Hematocrit (34.0-46.0) % ABG Potassium (3.4-4.5) mmol/L ABG Ionized Calcium (4.5-5.3) mg/dL ABG Glucose (75-99) mg/dL ABG Lactic Acid (0.5-1.6) mmol/L Hemoglobin (13.0-17.5) gm/dL Sodium 135 L (137-145) mmol/L Chloride 108 H (98-107) mmol/L Carbon Dioxide 21 L (22-30) mmol/L Glucose 112 H (74-99) mg/dL POC Glucose (mg/dL) 123 H (70-110) mg/dL AST 94 H (17-59) U/L Total Protein 5.1 L (6.3-8.2) g/dL Albumin 2.9 L (3.5-5.0) g/dL Arterial Blood Potassium (3.4-4.5) mmol/L Arterial Blood Glucose (75-99) mg/dL - Imaging and Cardiology Chest x-ray: image reviewed Assessment and Plan Assessment: Triple-vessel coronary artery disease, non-STEMI this admission, status post 5 vessel CABG Chest pain on admission Acute blood loss anemia, expected Paroxysmal atrial fibrillation, status post ligation of the left atrial appendage Bilateral carotid artery stenosis 50 to 69% History of hypertension Hyperlipidemia, treated, cholesterol 161, LDL 97 Previous tobacco dependence, FEV1 76% of predicted Daily wine usage Prostate cancer, pending radiation therapy Plan: Continue to maximize medical therapy with aspirin, statin, Plavix, and beta- eliud. Will increase beta-eliud therapy as tolerated, increased to 25 mg TID today Continue amlodipine for radial artery spasm prophylaxis, increased to 10 mg daily at noon with hold parameters Continue amiodarone, will transition to oral. No anticoagulation necessary Wean oxygen as tolerated. Encourage incentive spirometry use 10 times every hour while awake. Bronchodilators per pulmonology Increase activity, ambulate as tolerated. PT/OT/cardiac rehab following Will monitor daily labs and chest x-rays. Electrolyte replacement per protocol. GI/DVT prophylaxis. Insulin management per internal medicine, patient is not diabetic, preoperative hemoglobin A1c 5.7% Pain control per current medication regimen Will discontinue epicardial wires, patient to remain on bedrest for 1 hours post wire removal Will discontinue left pleural chest tube today Continue to record strict accurate intake and output Daily weights Discharge planning in progress, likely will discharge to home with home care in the next 24 to 48 hours More recommendations to follow based on patient's clinical course.
[2024-07-27] MEDS: METOPROLOL TARTRATE 25 MG TAB PO SCH (08:25)
--- NOTE | 2024-07-27 08:37 | XR ---
EXAMINATION TYPE: XR chest 1V portable DATE OF EXAM: 07/27/2024 6:45 AM CLINICAL INDICATION: Male, 64 years old with history of post cardiac surgery; [facility] COMPARISON: Chest radiograph from one day prior. TECHNIQUE: XR chest 1V portable Frontal view of the chest. FINDINGS: Lungs/Pleura: Left midlung streaky atelectasis. There is no evidence of pleural effusion, focal conso lidation, or pneumothorax. Pulmonary vascularity: Pulmonary vascular congestion. Heart/mediastinum: Cardiomediastinal silhouette is enlarged. Atherosclerotic calcifications are seen in the aorta. Left atrial appendage occlusion device is present. Musculoskeletal: No acute osseous pathology. Other findings: None Lines/Tubes: Left thoracotomy tube is present without evidence of pneumothorax. IMPRESSION: Cardiomegaly and mild pulmonary edema, similar to prior. [facility], , 07/27/2024 8:35 AM
--- NOTE | 2024-07-27 11:46 | P.PN ---
Subjective HISTORY OF PRESENT ILLNESS: This is a 64-year-old male with no previous cardiac history and does not follow with a transactional attorney. Patient has a past medical history of hypertension hyperlipidemia. He states he developed chest pain and soreness in the left arm which he never had before. It started during the night it went away initially and then came back. No shortness of breath, no sweats, no dizziness. No palpitations. He states he is normally very active he does not have any symptoms of chest pain or dyspnea on exertion. He has no pain at the time of this evaluation. He denies any lower extremity edema no fever no cough no wheezing. He does have a history of smoking but quit many years ago. Blood pressure 127/84, heart rate 54, pulse ox 97% on room air. EKG: Sinus rhythm, 51 bpm, no acute ST-T wave changes. Chest x-ray: No consolidation Laboratory studies: CBC unremarkable. Potassium 4.1, creatinine 0.87. Troponins 2.53, 1.13, 0.386.Triglycerides 66, cholesterol 161, LDL 96, HDL 51 Home cardiac medications: Amlodipine/benazepril 10-40 mg 1 at bedtime, aspirin 81 mg daily, labetalol 300 mg every 12 hours, pravastatin 40 mg daily. 07/21 Patient is seen today in follow-up. Yesterday he underwent cardiac catheterization which revealed severe triple-vessel coronary artery disease with slow flow in the PLV that could be the culprit lesion. Codominant system, elevated LVEDP. Patient was seen by cardiothoracic surgery with plan for CABG on Wednesday. Patient has been maintained on heparin drip. Medication changes made yesterday by cardiothoracic surgery and relationship to amlodipine, shahzad nopril were both discontinued and patient started on hydralazine. Blood pressure 169/81, heart rate 63, pulse ox 96% on room air. Repeat CBC unremarkable. 07/22/2024 Patient examined this morning at the bedside. Patient's family is present. Patient currently denies chest pain or pressure. He denies shortness of breath. He is about to take a shower at the time of examination. He remains on IV heparin. Blood pressure slightly elevated with recent readings of 146/72 and 168/84. 07/23/2024 Patient examined this morning the bedside. Patient's family is present. He currently denies chest pain or pressure. He denies shortness of breath. He remains on IV heparin. Blood pressure this morning 151/71. His hydralazine was increased yesterday. He is anticipating surgery tomorrow. 07/25 Patient underwent CABG with 5 vessels [place] to LAD, radial to OM, SVG to diagonal, SVG to PDA and SVG to posterior lateral 07/24/2024. He has been doing well. He denies any chest pain or pressure. No significant shortness breath. He received IV albumin 250 mL this morning. CVP 6 and PA pressures 32/9 with a cardiac index 2.0 as morning and [place] catheter was discontinued. Has an appetite and remains in sinus rhythm. 07/26 Patient seen and examined. Patient denies any chest pain or pressure. Mild shortness breath. He did go in A. fib with relatively controlled heart rates in the 90s to 100s this morning. He has since converted with amiodarone bolus. 07/27/2024 Patient examined this morning at the bedside. Patient currently denies chest pain or pressure. He denies shortness of breath. Telemetry this morning reveals sinus mechanism. Patient's chest tube was discontinued this morning. Vital signs are stable. Blood pressure this morning 143/80. PHYSICAL EXAM: VITAL SIGNS: Reviewed. GENERAL: Well-developed in no acute distress. NECK: Supple. No JVD or thyromegaly LUNGS: Respirations even and unlabored. Lungs essentially clear to auscultation bilaterally. HEART: Regular rate and rhythm. S1 and S2 heard. Systolic murmur noted EXTREMITIES: Normal range of motion. No clubbing or cyanosis. Peripheral pulses intact. No lower extremity edema ASSESSMENT: Non-STEMI, status post cardiac catheterization revealing triple-vessel disease Coronary artery disease, status post CABG x 5 vessels, 07/24/2024 Hypertension Hyperlipidemia Daily alcohol use Prostate cancer Former nicotine dependence Postoperative paroxysmal atrial fibrillation PLAN: Continue postoperative management per CT surgery Continue current cardiac medications Increase activity as tolerated Encourage use of incentive spirometer Continue telemetry monitoring Anticipate discharge home in the next 24 to 48 hours Further recommendations pending patient course Nurse practitioner note has been reviewed by physician. Signing provider agrees with the documented findings, assessment, and plan of care documented by [employer] as a scribe. Objective - Vital Signs Vital signs: Vital Signs Temp 98.2 F 07/27/24 07:43 Pulse 80 07/27/24 08:45 Resp 16 07/27/24 07:43 BP 143/80 07/27/24 07:43 Pulse Ox 96 07/27/24 07:43 FiO2 21 07/25/24 08:11 Intake & Output 07/26/24 07/27/24 07/27/24 18:59 06:59 18:59 Intake Total 230.064 260.005 360 Output Total 340 580 605 Balance -109.936 -319.995 -245 Weight 97.2 kg Intake: IV 227 20 Invasive Line 2 10 Invasive Line 6 10 Pressure Bag 27 Sodium Chloride 0.9% 1, 200 000 ml @ 30 mls/hr IV . Q24H [facility] Rx#:[id number] Intake, IV Titration 3.064 240.005 Amount Amiodarone 450 mg In 240.005 Dextrose 5% in Water 250 ml @ 0.5 MG/MIN 16.667 mls/hr IV .Q15H [facility]N Rx#: [id number] Insulin Regular 100 unit 3.064 In Sodium Chloride 0.9% 100 ml @ Per Protocol IV .Q0M [facility] Rx#:[id number] Oral 360 Output: Chest Tube Drainage 80 230 5 Left Pleural 30 5 Mediastinal 50 230 Urine 260 350 600 Other: Voiding Method Indwelling Catheter Toilet Urinal # Voids 1 1 # Bowel Movements 1 1 ABP, PAP, CO, CI - Last Documented Arterial Blood Pressure 135/71 Pulmonary Artery Pressure 44/19 Cardiac Output 4.6 Cardiac Index 2.2 - Labs CBC & Chem 7: 07/27/24 06:02 07/27/24 06:02 Labs: Abnormal Lab Results - Last 24 Hours (Table) 07/24/24 07/24/24 07/24/24 Range/Units 08:28 08:28 08:28 RBC (4.30-5.90) m/uL Hgb (13.0-17.5) gm/dL Hct (39.0-53.0) % ABG pH (7.35-7.45) ABG pCO2 (35-45) mmHg ABG pO2 419 H >420 H 333 H (83-108) mmHg ABG O2 Saturation >99.4 H >99.4 H 99.1 H (94-97) % ABG Hematocrit 28 L 26 L (34.0-46.0) % ABG Potassium 3.3 L (3.4-4.5) mmol/L ABG Ionized Calcium 4.3 L (4.5-5.3) mg/dL ABG Glucose 107 H 114 H (75-99) mg/dL ABG Lactic Acid 0.4 L (0.5-1.6) mmol/L Hemoglobin 9.2 L 8.4 L 11.3 L (13.0-17.5) gm/dL Sodium (137-145) mmol/L Chloride (98-107) mmol/L Carbon Dioxide (22-30) mmol/L Glucose (74-99) mg/dL POC Glucose (mg/dL) (70-110) mg/dL AST (17-59) U/L Total Protein (6.3-8.2) g/dL Albumin (3.5-5.0) g/dL Arterial Blood Potassium 3.3 L (3.4-4.5) mmol/L Arterial Blood Glucose 107 H 114 H (75-99) mg/dL 07/24/24 07/24/24 07/24/24 Range/Units 10:00 11:04 11:42 RBC (4.30-5.90) m/uL Hgb (13.0-17.5) gm/dL Hct (39.0-53.0) % ABG pH 7.32 L 7.47 H 7.47 H (7.35-7.45) ABG pCO2 34 L 33 L (35-45) mmHg ABG pO2 120 H >420 H >420 H (83-108) mmHg ABG O2 Saturation 98.0 H >99.4 H >99.4 H (94-97) % ABG Hematocrit 31 L 23 L 24 L (34.0-46.0) % ABG Potassium 4.6 H (3.4-4.5) mmol/L ABG Ionized Calcium 4.1 L 4.2 L (4.5-5.3) mg/dL ABG Glucose 100 H 106 H (75-99) mg/dL ABG Lactic Acid 0.4 L 0.4 L (0.5-1.6) mmol/L Hemoglobin 10.0 L 7.6 L 7.7 L (13.0-17.5) gm/dL Sodium (137-145) mmol/L Chloride (98-107) mmol/L Carbon Dioxide (22-30) mmol/L Glucose (74-99) mg/dL POC Glucose (mg/dL) (70-110) mg/dL AST (17-59) U/L Total Protein (6.3-8.2) g/dL Albumin (3.5-5.0) g/dL Arterial Blood Potassium 4.6 H (3.4-4.5) mmol/L Arterial Blood Glucose 100 H 106 H (75-99) mg/dL 07/24/24 07/24/24 07/26/24 Range/Units 12:53 13:17 09:22 RBC (4.30-5.90) m/uL Hgb (13.0-17.5) gm/dL Hct (39.0-53.0) % ABG pH (7.35-7.45) ABG pCO2 (35-45) mmHg ABG pO2 >420 H >420 H (83-108) mmHg ABG O2 Saturation 99.3 H >99.4 H (94-97) % ABG Hematocrit 24 L 22 L (34.0-46.0) % ABG Potassium (3.4-4.5) mmol/L ABG Ionized Calcium 4.4 L 4.3 L (4.5-5.3) mg/dL ABG Glucose 111 H 109 H (75-99) mg/dL ABG Lactic Acid (0.5-1.6) mmol/L Hemoglobin 7.9 L 7.3 L (13.0-17.5) gm/dL Sodium (137-145) mmol/L Chloride (98-107) mmol/L Carbon Dioxide (22-30) mmol/L Glucose (74-99) mg/dL POC Glucose (mg/dL) 187 H (70-110) mg/dL AST (17-59) U/L Total Protein (6.3-8.2) g/dL Albumin (3.5-5.0) g/dL Arterial Blood Potassium (3.4-4.5) mmol/L Arterial Blood Glucose 111 H 109 H (75-99) mg/dL 07/26/24 07/26/24 07/26/24 Range/Units 09:56 11:37 19:57 RBC (4.30-5.90) m/uL Hgb (13.0-17.5) gm/dL Hct (39.0-53.0) % ABG pH (7.35-7.45) ABG pCO2 (35-45) mmHg ABG pO2 (83-108) mmHg ABG O2 Saturation (94-97) % ABG Hematocrit (34.0-46.0) % ABG Potassium (3.4-4.5) mmol/L ABG Ionized Calcium (4.5-5.3) mg/dL ABG Glucose (75-99) mg/dL ABG Lactic Acid (0.5-1.6) mmol/L Hemoglobin (13.0-17.5) gm/dL Sodium (137-145) mmol/L Chloride (98-107) mmol/L Carbon Dioxide (22-30) mmol/L Glucose (74-99) mg/dL POC Glucose (mg/dL) 166 H 129 H 141 H (70-110) mg/dL AST (17-59) U/L Total Protein (6.3-8.2) g/dL Albumin (3.5-5.0) g/dL Arterial Blood Potassium (3.4-4.5) mmol/L Arterial Blood Glucose (75-99) mg/dL 07/27/24 07/27/24 07/27/24 Range/Units 06:00 06:02 06:02 RBC 3.12 L (4.30-5.90) m/uL Hgb 9.3 L (13.0-17.5) gm/dL Hct 28.8 L (39.0-53.0) % ABG pH (7.35-7.45) ABG pCO2 (35-45) mmHg ABG pO2 (83-108) mmHg ABG O2 Saturation (94-97) % ABG Hematocrit (34.0-46.0) % ABG Potassium (3.4-4.5) mmol/L ABG Ionized Calcium (4.5-5.3) mg/dL ABG Glucose (75-99) mg/dL ABG Lactic Acid (0.5-1.6) mmol/L Hemoglobin (13.0-17.5) gm/dL Sodium 135 L (137-145) mmol/L Chloride 108 H (98-107) mmol/L Carbon Dioxide 21 L (22-30) mmol/L Glucose 112 H (74-99) mg/dL POC Glucose (mg/dL) 123 H (70-110) mg/dL AST 94 H (17-59) U/L Total Protein 5.1 L (6.3-8.2) g/dL Albumin 2.9 L (3.5-5.0) g/dL Arterial Blood Potassium (3.4-4.5) mmol/L Arterial Blood Glucose (75-99) mg/dL
[2024-07-27 11:52] LABS: Glucose,Whole Blood 127 mg/dL (70-110)
[2024-07-27] MEDS: amLODIPine 10 MG TAB PO SCH (11:58)
[2024-07-27] MEDS: FUROSEMIDE 10 MG/ML 2 ML VIAL IV ONE (11:58)
--- NOTE | 2024-07-27 12:21 | P.PN ---
Subjective Progress Note Date: 07/27/24 Patient states that he did 1 lap in the ICU. He states that he did relapse yesterday. Patient overall is feeling better. Physical exam General examination - Alert and Oriented 3 in NAD Heart - + S1S2 no murmurs Lungs -bilateral chest tubes, heart hugger in place Abdomen soft NT ND +ve BS Extremities - No edema ENROUTE CONTROLLER - Moving all 4 extremities spontaneously Psych - Calm and cooperative Assessment and plan Hyperglycemia Continue with sliding scale insulin Patient is not diabetic Suspect patient has mildly elevated blood glucose due to surgery Blood glucose level has been between 112 and 187. Hemoglobin A1c 5.7 before surgery. Patient would not need any diabetic meds on discharge Acute blood loss Hemoglobin this morning is 9.3 which is improving Transfuse for hemoglobin less than 7 Acute hypoxic respiratory failure Patient now on room air and he was extubated on 07/24/2024 Patient currently on 6 L nasal cannula Wean O2 as tolerated Mild acute kidney injury Likely from surgery and acute blood loss anemia Creatinine this morning is 0.85 Resolved A-fib with RVR Per CT surgery no need for anticoagulation at this point Metoprolol increased to 25 mg twice daily Cardiology also on board Non-ST elevation NM Continue with ASA 325 mg PO QD. Lipitor 80 mg PO QHS Plavix 75 mg PO QD. Metopro lol 12.5 mg PO BID. Telemetry monitoring. Cardiology and CT surgery on board. Leukocytosis likely reactive Resolved Pulmonary nodules Patient will need repeat CT chest in 6 months Hypertension BP meds adjusted by CT surgery Hyperlipidemia Continue statin DVT prophylaxis: Subcu heparin Objective - Vital Signs Vital signs: Vital Signs Temp 98.3 F 07/27/24 11:16 Pulse 76 07/27/24 11:58 Resp 18 07/27/24 11:16 BP 134/77 07/27/24 11:16 Pulse Ox 96 07/27/24 11:16 FiO2 21 07/25/24 08:11 Intake & Output 07/26/24 07/27/24 07/27/24 18:59 06:59 18:59 Intake Total 230.064 260.005 370 Output Total 340 580 605 Balance -109.936 -319.995 -235 Weight 97.2 kg Intake: IV 227 20 10 Invasive Line 2 10 Invasive Line 6 10 10 Pressure Bag 27 Sodium Chloride 0.9% 1, 200 000 ml @ 30 mls/hr IV . Q24H [facility] Rx#:[id number] Intake, IV Titration 3.064 240.005 Amount Amiodarone 450 mg In 240.005 Dextrose 5% in Water 250 ml @ 0.5 MG/MIN 16.667 mls/hr IV .Q15H [facility]N Rx#: [id number] Insulin Regular 100 unit 3.064 In Sodium Chloride 0.9% 100 ml @ Per Protocol IV .Q0M [facility] Rx#:[id number] Oral 360 Output: Chest Tube Drainage 80 230 5 Left Pleural 30 5 Mediastinal 50 230 Urine 260 350 600 Other: Voiding Method Indwelling Catheter Toilet Toilet Urinal Urinal # Voids 1 1 # Bowel Movements 1 1 ABP, PAP, CO, CI - Last Documented Arterial Blood Pressure 135/71 Pulmonary Artery Pressure 44/19 Cardiac Output 4.6 Cardiac Index 2.2 - Labs CBC & Chem 7: 07/27/24 06:02 07/27/24 06:02 Labs: Abnormal Lab Results - Last 24 Hours (Table) 07/24/24 07/24/24 07/24/24 Range/Units 08:28 08:28 08:28 RBC (4.30-5.90) m/uL Hgb (13.0-17.5) gm/dL Hct (39.0-53.0) % ABG pH (7.35-7.45) ABG pCO2 (35-45) mmHg ABG pO2 419 H >420 H 333 H (83-108) mmHg ABG O2 Saturation >99.4 H >99.4 H 99.1 H (94-97) % ABG Hematocrit 28 L 26 L (34.0-46.0) % ABG Potassium 3.3 L (3.4-4.5) mmol/L ABG Ionized Calcium 4.3 L (4.5-5.3) mg/dL ABG Glucose 107 H 114 H (75-99) mg/dL ABG Lactic Acid 0.4 L (0.5-1.6) mmol/L Hemoglobin 9.2 L 8.4 L 11.3 L (13.0-17.5) gm/dL Sodium (137-145) mmol/L Chloride (98-107) mmol/L Carbon Dioxide (22-30) mmol/L Glucose (74-99) mg/dL POC Glucose (mg/dL) (70-110) mg/dL AST (17-59) U/L Total Protein (6.3-8.2) g/dL Albumin (3.5-5.0) g/dL Arterial Blood Potassium 3.3 L (3.4-4.5) mmol/L Arterial Blood Glucose 107 H 114 H (75-99) mg/dL 07/24/24 07/24/24 07/24/24 Range/Units 10:00 11:04 11:42 RBC (4.30-5.90) m/uL Hgb (13.0-17.5) gm/dL Hct (39.0-53.0) % ABG pH 7.32 L 7.47 H 7.47 H (7.35-7.45) ABG pCO2 34 L 33 L (35-45) mmHg ABG pO2 120 H >420 H >420 H (83-108) mmHg ABG O2 Saturation 98.0 H >99.4 H >99.4 H (94-97) % ABG Hematocrit 31 L 23 L 24 L (34.0-46.0) % ABG Potassium 4.6 H (3.4-4.5) mmol/L ABG Ionized Calcium 4.1 L 4.2 L (4.5-5.3) mg/dL ABG Glucose 100 H 106 H (75-99) mg/dL ABG Lactic Acid 0.4 L 0.4 L (0.5-1.6) mmol/L Hemoglobin 10.0 L 7.6 L 7.7 L (13.0-17.5) gm/dL Sodium (137-145) mmol/L Chloride (98-107) mmol/L Carbon Dioxide (22-30) mmol/L Glucose (74-99) mg/dL POC Glucose (mg/dL) (70-110) mg/dL AST (17-59) U/L Total Protein (6.3-8.2) g/dL Albumin (3.5-5.0) g/dL Arterial Blood Potassium 4.6 H (3.4-4.5) mmol/L Arterial Blood Glucose 100 H 106 H (75-99) mg/dL 07/24/24 07/24/24 07/26/24 Range/Units 12:53 13:17 19:57 RBC (4.30-5.90) m/uL Hgb (13.0-17.5) gm/dL Hct (39.0-53.0) % ABG pH (7.35-7.45) ABG pCO2 (35-45) mmHg ABG pO2 >420 H >420 H (83-108) mmHg ABG O2 Saturation 99.3 H >99.4 H (94-97) % ABG Hematocrit 24 L 22 L (34.0-46.0) % ABG Potassium (3.4-4.5) mmol/L ABG Ionized Calcium 4.4 L 4.3 L (4.5-5.3) mg/dL ABG Glucose 111 H 109 H (75-99) mg/dL ABG Lactic Acid (0.5-1.6) mmol/L Hemoglobin 7.9 L 7.3 L (13.0-17.5) gm/dL Sodium (137-145) mmol/L Chloride (98-107) mmol/L Carbon Dioxide (22-30) mmol/L Glucose (74-99) mg/dL POC Glucose (mg/dL) 141 H (70-110) mg/dL AST (17-59) U/L Total Protein (6.3-8.2) g/dL Albumin (3.5-5.0) g/dL Arterial Blood Potassium (3.4-4.5) mmol/L Arterial Blood Glucose 111 H 109 H (75-99) mg/dL 07/27/24 07/27/24 07/27/24 Range/Units 06:00 06:02 06:02 RBC 3.12 L (4.30-5.90) m/uL Hgb 9.3 L (13.0-17.5) gm/dL Hct 28.8 L (39.0-53.0) % ABG pH (7.35-7.45) ABG pCO2 (35-45) mmHg ABG pO2 (83-108) mmHg ABG O2 Saturation (94-97) % ABG Hematocrit (34.0-46.0) % ABG Potassium (3.4-4.5) mmol/L ABG Ionized Calcium (4.5-5.3) mg/dL ABG Glucose (75-99) mg/dL ABG Lactic Acid (0.5-1.6) mmol/L Hemoglobin (13.0-17.5) gm/dL Sodium 135 L (137-145) mmol/L Chloride 108 H (98-107) mmol/L Carbon Dioxide 21 L (22-30) mmol/L Glucose 112 H (74-99) mg/dL POC Glucose (mg/dL) 123 H (70-110) mg/dL AST 94 H (17-59) U/L Total Protein 5.1 L (6.3-8.2) g/dL Albumin 2.9 L (3.5-5.0) g/dL Arterial Blood Potassium (3.4-4.5) mmol/L Arterial Blood Glucose (75-99) mg/dL 07/27/24 Range/Units 11:51 RBC (4.30-5.90) m/uL Hgb (13.0-17.5) gm/dL Hct (39.0-53.0) % ABG pH (7.35-7.45) ABG pCO2 (35-45) mmHg ABG pO2 (83-108) mmHg ABG O2 Saturation (94-97) % ABG Hematocrit (34.0-46.0) % ABG Potassium (3.4-4.5) mmol/L ABG Ionized Calcium (4.5-5.3) mg/dL ABG Glucose (75-99) mg/dL ABG Lactic Acid (0.5-1.6) mmol/L Hemoglobin (13.0-17.5) gm/dL Sodium (137-145) mmol/L Chloride (98-107) mmol/L Carbon Dioxide (22-30) mmol/L Glucose (74-99) mg/dL POC Glucose (mg/dL) 127 H (70-110) mg/dL AST (17-59) U/L Total Protein (6.3-8.2) g/dL Albumin (3.5-5.0) g/dL Arterial Blood Potassium (3.4-4.5) mmol/L Arterial Blood Glucose (75-99) mg/dL
--- NOTE | 2024-07-27 13:33 | P.PN ---
Subjective Progress Note Date: 07/27/24 This is a 64-year-old male patient with known history of hypertension hyperlipidemia prostate cancer and remote history of smoking, came into the hospital because of chest pain and the patient was found to have elevated troponins and he ruled in for non-ST segment elevation myocardial infarction. Subsequent cardiac catheterization showed 90% LAD, 70% first obtuse marginal branch, subtotally occluded PLV, 70% proximal RCA and 60 to 70% mid RCA. Following that, patient was seen by cardiothoracic surgery and the patient is being considered for bypass surgery. In fact, the patient will be taken for b ypass tomorrow. CAT scan of the chest was done on 07/20/2024 and showed some scattered bilateral pulmonary nodules that needs to be further monitored on outpatient basis. These are nonspecific findings. No other acute abnormalities have been noted. Echocardiogram done on 07/20/2024 preserved LV function without any significant abnormalities. The white cell count is at 7.1 with a hemoglobin 12.4 and a platelet count of 276. Electrolytes are all within normal limits. The patient is currently on room air oxygen. Is ambulating. Bedside spirometry was done and his FEV1 is in order of 76% of predicted. Patient was evaluated today 07/24/2024, patient underwent CABG, for triple-vessel coronary artery disease, brought back to the ICU intubated and mechanically ventilated, and I am seeing him on follow-up. Patient is on assist-control rate of 12 tidal volume 500 FiO2 100% and PEEP of 5 ABG showed a pO2 of 141 pCO2 47 pH of 7.32 hence his FiO2 was cut down and his rate was increased to 14. Patient has cardiac output of 5.6, cardiac index of 2.7, patient is on multiple drips including Cleviprex at 8 mg/h, nitro at 5 mcg /min, and he is on propofol at 30 mcg/kg/min chest x-ray postoperatively showed nasogastric tube in distal esophagus, endotracheal tube above the adwoa, and no acute process noted.Cannot rule out pneumonia WBC 13.9 hemoglobin is 11.4 Patient is sedated, on propofol Patient was evaluated today on 07/25/2024, patient isPOD #1 coronary artery bypass grafting x 5 vessels (left internal mammary artery to the left anterior descending coronary artery, radial artery to the obtuse marginal coronary artery, saphenous vein graft to the diagonal coronary artery, saphenous vein graft to the posterior descending coronary artery, saphenous vein graft to the posterior lateral branch of the right coronary artery), endoscopic harvest left radial artery, patient is in the ICU, extubated last night at 6:36 PM, presently on room air, O2 sats 93%, patient is already ambulating with assistance, not requiring any inotropes or pressors, he is only on insulin drip. His cardiac output is 4.3 with a cardiac index of 2.0. Pressure 32/29 CVP of 6. Chest x- ray is showing minimal bibasilar atelectasis left more so than right, patient is achieving over 1500 cc with incentive spirometry, overall his postoperative course is uneventful Patient was evaluated today on 07/26/2024, he is now postoperative day #2.coronary artery bypass grafting x 5 vessels (left internal mammary artery to the left anterior descending coronary artery, radial artery to the obtuse marginal coronary artery, saphenous vein graft to the diagonal coronary artery, saphenous vein graft to the posterior descending coronary artery, saphenous vein graft to the posterior lateral branch of the right coronary artery), patient is on room air, not in any distress, however he developed atrial fibrillation with RVR and he required amiodarone bolus and placed on amiodarone drip at 1 mg/min. Patient denies any shortness of breath denies any chest pain, continues to have chest tubes in place and continues to have right sided Cordis. He is achieving over 1500 cc on his incentive spirometry. Patient is already ambulating with assistance in the hallway. He is hemodynamically stable, not requiring any inotropes or any pressors. Chest x-ray showed minimal as expected left basilar atelectasis, no acute processes noted. The patient is seen today July 27, 2024 in follow-up on the [facility]. Postoperative day #3. He is awake and alert in no acute distress. He is sitting up in a chair at the bedside. He is maintaining good O2 saturation in the 90s on room air. Denies any shortness of breath, cough or congestion. His pain is well-managed. He is working well with the incentive spirometer. Chest x-ray reveals cardiomegaly with mild pulmonary edema. White count 8.2. Hemoglobin 9.3. Platelets 240. Sodium 135. Potassium 3.9. Bicarb 21. BUN 18. Creatinine 0.85. Glucose 123. He is continued on bronchodilators. Heparin for DVT prophylaxis. Objective - Vital Signs Vital signs: Vital Signs Temp 98.3 F 07/27/24 11:16 Pulse 76 07/27/24 11:58 Resp 18 07/27/24 11:16 BP 134/77 07/27/24 11:16 Pulse Ox 96 07/27/24 11:16 FiO2 21 07/25/24 08:11 Intake & Output 07/26/24 07/27/24 07/27/24 18:59 06:59 18:59 Intake Total 230.064 260.005 370 Output Total 340 580 605 Balance -109.936 -319.995 -235 Weight 97.2 kg Intake: IV 227 20 10 Invasive Line 2 10 Invasive Line 6 10 10 Pressure Bag 27 Sodium Chloride 0.9% 1, 200 000 ml @ 30 mls/hr IV . Q24H [facility] Rx#:[id number] Intake, IV Titration 3.064 240.005 Amount Amiodarone 450 mg In 240.005 Dextrose 5% in Water 250 ml @ 0.5 MG/MIN 16.667 mls/hr IV .Q15H [facility] Rx#: [id number] Insulin Regular 100 unit 3.064 In Sodium Chloride 0.9% 100 ml @ Per Protocol IV .Q0M [facility] Rx#:[id number] Oral 360 Output: Chest Tube Drainage 80 230 5 Left Pleural 30 5 Mediastinal 50 230 Urine 260 350 600 Other: Voiding Method Indwelling Catheter Toilet Toilet Urinal Urinal # Voids 1 1 # Bowel Movements 1 1 ABP, PAP, CO, CI - Last Documented Arterial Blood Pressure 135/71 Pulmonary Artery Pressure 44/19 Cardiac Output 4.6 Cardiac Index 2.2 - Exam GENERAL EXAM: Alert, active, pleasant 64-year-old male, on room air, fairly comfortable in no apparent distress. HEAD: Normocephalic. EYES: Normal reaction of pupils, equal size. NOSE: Clear with pink turbinates. THROAT: No erythema or exudates. NECK: No masses, no JVD. CHEST: No chest wall deformity. Sternum stable. Heart hugger in place. LUNGS: Equal air entry with no crackles, wheeze, rhonchi or dullness. CVS: S1 and S2 normal with no audible murmur, regular rhythm. ABDOMEN: No hepatosplenomegaly, normal bowel sounds, no guarding or rigidity. SPINE: No scoliosis or deformity SKIN: No rashes CENTRAL NERVOUS SYSTEM: No focal deficits, tone is normal in all 4 extremities. EXTREMITIES: There is no peripheral edema. No clubbing, no cyanosis. Peripheral pulses are intact. - Labs CBC & Chem 7: 07/27/24 06:02 07/27/24 06:02 Labs: Abnormal Lab Results - Last 24 Hours (Table) 07/24/24 07/24/24 07/24/24 Range/Units 08:28 08:28 08:28 RBC (4.30-5.90) m/uL Hgb (13.0-17.5) gm/dL Hct (39.0-53.0) % ABG pH (7.35-7.45) ABG pCO2 (35-45) mmHg ABG pO2 419 H >420 H 333 H (83-108) mmHg ABG O2 Saturation >99.4 H >99.4 H 99.1 H (94-97) % ABG Hematocrit 28 L 26 L (34.0-46.0) % ABG Potassium 3.3 L (3.4-4.5) mmol/L ABG Ionized Calcium 4.3 L (4.5-5.3) mg/dL ABG Glucose 107 H 114 H (75-99) mg/dL ABG Lactic Acid 0.4 L (0.5-1.6) mmol/L Hemoglobin 9.2 L 8.4 L 11.3 L (13.0-17.5) gm/dL Sodium (137-145) mmol/L Chloride (98-107) mmol/L Carbon Dioxide (22-30) mmol/L Glucose (74-99) mg/dL POC Glucose (mg/dL) (70-110) mg/dL AST (17-59) U/L Total Protein (6.3-8.2) g/dL Albumin (3.5-5.0) g/dL Arterial Blood Potassium 3.3 L (3.4-4.5) mmol/L Arterial Blood Glucose 107 H 114 H (75-99) mg/dL 07/24/24 07/24/24 07/24/24 Range/Units 10:00 11:04 11:42 RBC (4.30-5.90) m/uL Hgb (13.0-17.5) gm/dL Hct (39.0-53.0) % ABG pH 7.32 L 7.47 H 7.47 H (7.35-7.45) ABG pCO2 34 L 33 L (35-45) mmHg ABG pO2 120 H >420 H >420 H (83-108) mmHg ABG O2 Saturation 98.0 H >99.4 H >99.4 H (94-97) % ABG Hematocrit 31 L 23 L 24 L (34.0-46.0) % ABG Potassium 4.6 H (3.4-4.5) mmol/L ABG Ionized Calcium 4.1 L 4.2 L (4.5-5.3) mg/dL ABG Glucose 100 H 106 H (75-99) mg/dL ABG Lactic Acid 0.4 L 0.4 L (0.5-1.6) mmol/L Hemoglobin 10.0 L 7.6 L 7.7 L (13.0-17.5) gm/dL Sodium (137-145) mmol/L Chloride (98-107) mmol/L Carbon Dioxide (22-30) mmol/L Glucose (74-99) mg/dL POC Glucose (mg/dL) (70-110) mg/dL AST (17-59) U/L Total Protein (6.3-8.2) g/dL Albumin (3.5-5.0) g/dL Arterial Blood Potassium 4.6 H (3.4-4.5) mmol/L Arterial Blood Glucose 100 H 106 H (75-99) mg/dL 07/24/24 07/24/24 07/26/24 Range/Units 12:53 13:17 19:57 RBC (4.30-5.90) m/uL Hgb (13.0-17.5) gm/dL Hct (39.0-53.0) % ABG pH (7.35-7.45) ABG pCO2 (35-45) mmHg ABG pO2 >420 H >420 H (83-108) mmHg ABG O2 Saturation 99.3 H >99.4 H (94-97) % ABG Hematocrit 24 L 22 L (34.0-46.0) % ABG Potassium (3.4-4.5) mmol/L ABG Ionized Calcium 4.4 L 4.3 L (4.5-5.3) mg/dL ABG Glucose 111 H 109 H (75-99) mg/dL ABG Lactic Acid (0.5-1.6) mmol/L Hemoglobin 7.9 L 7.3 L (13.0-17.5) gm/dL Sodium (137-145) mmol/L Chloride (98-107) mmol/L Carbon Dioxide (22-30) mmol/L Glucose (74-99) mg/dL POC Glucose (mg/dL) 141 H (70-110) mg/dL AST (17-59) U/L Total Protein (6.3-8.2) g/dL Albumin (3.5-5.0) g/dL Arterial Blood Potassium (3.4-4.5) mmol/L Arterial Blood Glucose 111 H 109 H (75-99) mg/dL 07/27/24 07/27/24 07/27/24 Range/Units 06:00 06:02 06:02 RBC 3.12 L (4.30-5.90) m/uL Hgb 9.3 L (13.0-17.5) gm/dL Hct 28.8 L (39.0-53.0) % ABG pH (7.35-7.45) ABG pCO2 (35-45) mmHg ABG pO2 (83-108) mmHg ABG O2 Saturation (94-97) % ABG Hematocrit (34.0-46.0) % ABG Potassium (3.4-4.5) mmol/L ABG Ionized Calcium (4.5-5.3) mg/dL ABG Glucose (75-99) mg/dL ABG Lactic Acid (0.5-1.6) mmol/L Hemoglobin (13.0-17.5) gm/dL Sodium 135 L (137-145) mmol/L Chloride 108 H (98-107) mmol/L Carbon Dioxide 21 L (22-30) mmol/L Glucose 112 H (74-99) mg/dL POC Glucose (mg/dL) 123 H (70-110) mg/dL AST 94 H (17-59) U/L Total Protein 5.1 L (6.3-8.2) g/dL Albumin 2.9 L (3.5-5.0) g/dL Arterial Blood Potassium (3.4-4.5) mmol/L Arterial Blood Glucose (75-99) mg/dL 07/27/24 Range/Units 11:51 RBC (4.30-5.90) m/uL Hgb (13.0-17.5) gm/dL Hct (39.0-53.0) % ABG pH (7.35-7.45) ABG pCO2 (35-45) mmHg ABG pO2 (83-108) mmHg ABG O2 Saturation (94-97) % ABG Hematocrit (34.0-46.0) % ABG Potassium (3.4-4.5) mmol/L ABG Ionized Calcium (4.5-5.3) mg/dL ABG Glucose (75-99) mg/dL ABG Lactic Acid (0.5-1.6) mmol/L Hemoglobin (13.0-17.5) gm/dL Sodium (137-145) mmol/L Chloride (98-107) mmol/L Carbon Dioxide (22-30) mmol/L Glucose (74-99) mg/dL POC Glucose (mg/dL) 127 H (70-110) mg/dL AST (17-59) U/L Total Protein (6.3-8.2) g/dL Albumin (3.5-5.0) g/dL Arterial Blood Potassium (3.4-4.5) mmol/L Arterial Blood Glucose (75-99) mg/dL Assessment and Plan Assessment: POD #3 coronary artery bypass grafting x 5 vessels (left internal mammary artery to the left anterior descending coronary artery, radial artery to the obtuse marginal coronary artery, saphenous vein graft to the diagonal coronary artery, saphenous vein graft to the posterior descending coronary artery, saphenous vein graft to the posterior lateral branch of the right coronary artery), Acute non-ST elevation myocardial infarction on this admission Postoperative atrial fibrillation with RVR, expected patient is on amiodarone Benign essential hypertension Dyslipidemia Ex-smoker, preoperative FEV1 of 76% History of prostate cancer pending radiation therapy Postoperative atelectasis, expected patient is achieving over 1000 cc on his incentive spirometry Plan: The patient was seen and evaluated Chest x-ray, labs and medications reviewed Continue bronchodilators Heparin for DVT prophylaxis Stable and on room air Increase his activity as tolerated Continue with the incentive spirometer This patient was seen independently by the pulmonary nurse practitioner addressing pulmonary issues I have personally seen and examined the patient, performed the documentation and the assessment and plan as written. Number of minutes spent on the visit: 24.
[2024-07-27 17:11] LABS: Glucose,Whole Blood 122 mg/dL (70-110)
[2024-07-27 19:56] LABS: Glucose,Whole Blood 125 mg/dL (70-110)
[2024-07-27 22:07] VITALS: RESP 16
[2024-07-28 06:00] LABS: Glucose,Whole Blood 116 mg/dL (70-110)
[2024-07-28 07:10] LABS: HCT 27.3 % (39.0-53.0); HGB 8.8 gm/dL (13.0-17.5); MCH 30.1 pg (25.0-35.0); MCHC 32.3 g/dL (31.0-37.0); MCV 93.3 fL (80.0-100.0); Mean Platelet Volume 7.5; Platelet Count 342 k/uL (150-450); RBC 2.93 m/uL (4.30-5.90); RDW 13.6 % (11.5-15.5); WBC 9.3 k/uL (3.8-10.6)
[2024-07-28 07:24] LABS: African American GFR (CKD) >90 (>60 ml/min/1.73 sqM); Anion Gap 7 mmol/L; Blood Urea Nitrogen 14 mg/dL (9-20); Carbon Dioxide 25 mmol/L (22-30); Chloride 107 mmol/L (98-107); Glucose 104 mg/dL (74-99); Non-African American GFR(CKD) >90 (>60 ml/min/1.73 sqM); Sodium 139 mmol/L (137-145)
[2024-07-28 07:45] VITALS: TEMP 98.6
--- NOTE | 2024-07-28 08:19 | P.PN ---
Subjective Progress Note Date: 07/28/24 Principal diagnosis: Triple-vessel coronary artery disease, non-STEMI this admission. History of hypertension, hyperlipidemia, previous tobacco dependence, daily wine usage, prostate cancer, pending radiation therapy POD #4 coronary artery bypass grafting x 5 vessels (left internal mammary artery to the left anterior descending coronary artery, radial artery to the obtuse mar ginal coronary artery, saphenous vein graft to the diagonal coronary artery, saphenous vein graft to the posterior descending coronary artery, saphenous vein graft to the posterior lateral branch of the right coronary artery), endoscopic harvest left radial artery, endoscopic harvest of bilateral greater saphenous veins, ligation of left atrial appendage using a 35mm ArtiClip, intraoperative epiaortic ultrasound, graft flow measurements using the AqueSys system, intraoperative transesophageal echocardiogram completed by anesthesia. Acute blood loss anemia, expected given hemodilution and cardiopulmonary bypass Paroxysmal atrial fibrillation, not expected but known common occurrence after open heart surgery, currently sinus The patient was seen and examined this morning sitting up in in recliner on the cardiac stepdown unit in no acute distress. States pain is controlled on current medication regimen, denies shortness of breath. No further episodes of atrial fibrillation. Currently sinus rhythm, hemodynamically stable. Currently on room air with oxygen saturation in the mid 90s, able to achieve 1500 mL on his incentive spirometry. Chest x-ray, labs reviewed. Patient has been ambulatory multiple times on the hallway without difficulty. Anticipates discharge to home this afternoon, states he feels ready. No other new concerns. Objective - Vital Signs Vital signs: Vital Signs Temp 98.6 F 07/28/24 07:44 Pulse 76 07/28/24 07:52 Resp 16 07/28/24 07:44 BP 152/76 07/28/24 07:44 Pulse Ox 94 L 07/28/24 07:44 FiO2 21 07/25/24 08:11 Intake & Output 07/27/24 07/28/24 07/28/24 18:59 06:59 18:59 Intake Total 740 1080 Output Total 2004 1200 Balance -1265 -120 Weight 98 kg Intake: IV 20 Invasive Line 6 20 Oral 720 1080 Output: Chest Tube Drainage 5 Left Pleural 5 Urine 2000 1200 Other: Voiding Method Toilet Toilet Urinal Urinal # Bowel Movements 1 ABP, PAP, CO, CI - Last Documented Arterial Blood Pressure 135/71 Pulmonary Artery Pressure 44/19 Cardiac Output 4.6 Cardiac Index 2.2 - Exam CONSTITUTIONAL: Appears comfortable, cooperative, no acute distress RESPIRATORY: Lungs sounds diminished bilaterally. Respirations even, n onlabored. Currently on with oxygen saturation 94%. Able to achieve 1500 mL on incentive spirometry. Strong nonproductive cough. CARDIOVASCULAR: S1, S2 present. Regular rate and rhythm, sinus rhythm on telemetry. Sternum stable. Palpable peripheral pulses bilaterally. No edema present. No calf pain or tenderness noted. Heart hugger in place with patient demonstrating appropriate use. Antiembolism stockings, SCDs present. GASTROINTESTINAL: Abdomen soft, nontender, nondistended. Active bowel sounds present 4 quadrants. Tolerating diet. Positive bowel movement 07/27 GENITOURINARY: Continues to void, measured urine output 2800 mL in the last 24 hours INTEGUMENTARY: Skin is warm and dry with evidence of good perfusion. Anterior chest incision well approximated. Bilateral lower extremity EVH sites as well as left radial artery harvest site well approximated without redness or drainage. NEUROLOGIC: Cranial nerves II through XII intact MUSKULOSKELETAL: Able to move all extremities, strength equal bilaterally, gait normal PSYCHIATRIC: Alert and oriented to person place and time, appropriate affect, intact judgment and insight - Allied health notes Allied health notes reviewed: nursing - Labs CBC & Chem 7: 07/28/24 06:28 07/28/24 06:28 Labs: Abnormal Lab Results - Last 24 Hours (Table) 07/27/24 07/27/24 07/27/24 Range/Units 11:51 17:09 19:55 RBC (4.30-5.90) m/uL Hgb (13.0-17.5) gm/dL Hct (39.0-53.0) % Glucose (74-99) mg/dL POC Glucose (mg/dL) 127 H 122 H 125 H (70-110) mg/dL 07/28/24 07/28/24 07/28/24 Range/Units 05:59 06:28 06:28 RBC 2.93 L (4.30-5.90) m/uL Hgb 8.8 L (13.0-17.5) gm/dL Hct 27.3 L (39.0-53.0) % Glucose 104 H (74-99) mg/dL POC Glucose (mg/dL) 116 H (70-110) mg/dL - Imaging and Cardiology Chest x-ray: image reviewed Assessment and Plan Assessment: Triple-vessel coronary artery disease, non-STEMI this admission, status post 5 vessel CABG Chest pain on admission Acute blood loss anemia, expected Paroxysmal atrial fibrillation, status post ligation of the left atrial appendage Bilateral carotid artery stenosis 50 to 69% History of hypertension Hyperlipidemia, treated, cholesterol 161, LDL 97 Previous tobacco dependence, FEV1 76% of predicted Daily wine usage Prostate cancer, pending radiation therapy Plan: Continue to maximize medical therapy with aspirin, statin, Plavix, and beta- eliud. Will increase beta-eliud therapy as tolerated, increased to 50 mg BID today Continue amlodipine for radial artery spasm prophylaxis. Will add lisinopril for afterload reduction Continue amiodarone, will discharge home on tapered dose. No anticoagulation necessary Encourage incentive spirometry use 10 times every hour while awake. Bronchodilators per pulmonology Increase activity, ambulate as tolerated. PT/OT/cardiac rehab following Will monitor daily labs and chest x-rays. Electrolyte replacement per protocol. GI/DVT prophylaxis. Insulin management per internal medicine, patient is not diabetic, preoperative hemoglobin A1c 5.7% Pain control per current medication regimen Shower this morning, then daily Continue to record strict accurate intake and output Daily weights Discharge planning in progress, will discharge to home with home care this afternoon More recommendations to follow based on patient's clinical course.
[2024-07-28] MEDS: lisinopriL 10 MG TAB PO SCH (08:59)
[2024-07-28] MEDS: FUROSEMIDE 10 MG/ML 2 ML VIAL IV ONE (09:00)
[2024-07-28] MEDS: METOPROLOL TARTRATE 50 MG TAB PO SCH (09:00)
--- NOTE | 2024-07-28 09:29 | XR ---
EXAMINATION TYPE: XR chest 2V DATE OF EXAM: 07/28/2024 6:26 AM CLINICAL INDICATION: Male, 64 years old with history of post cardiac surgery; [facility] COMPARISON: Chest radiographs from 07/27/2024 TECHNIQUE: XR chest 2V Frontal view of the chest. FINDINGS: Lungs/Pleura: There is no evidence of pleural effusion, focal consolidation, or pneumothorax. Pulmonary vascularity: Pulmonary vascular congestion. Heart/mediastinum: Cardiomediastinal silhouette is unremarkable. Left atrial appendage occlusion shanika ce is present. Musculoskeletal: No acute osseous pathology. Midline sternotomy wires are noted. Other findings: None Lines/Tubes: IMPRESSION: Similar exam with post cardiac repair changes and mild pulmonary edema. [facility], , 07/28/2024 9:27 AM
--- NOTE | 2024-07-28 11:01 | P.PN ---
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 Patient has a past medical history of hypertension hyperlipidemia. He states he developed chest pain and soreness in the left arm which he never had before. It started during the night it went away initially and then came back. No shortness of breath, no sweats, no dizziness. No palpitations. He states he is normally very active he does not have any symptoms of chest pain or dyspnea on exertion. He has no pain at the time of this evaluation. He denies any lower extremity edema no fever no cough no wheezing. He does have a history of smoking but quit many years ago. Blood pressure 127/84, heart rate 54, pulse ox 97% on room air. EKG: Sinus rhythm, 51 bpm, no acute ST-T wave changes. Chest x-ray: No consolidation Laboratory studies: CBC unremarkable. Potassium 4.1, creatinine 0.87. Troponins 2.53, 1.13, 0.386.Triglycerides 66, cholesterol 161, LDL 96, HDL 51 Home cardiac medications: Amlodipine/benazepril 10-40 mg 1 at bedtime, aspirin 81 mg daily, labetalol 300 mg every 12 hours, pravastatin 40 mg daily. 07/21 Patient is seen today in follow-up. Yesterday he underwent cardiac catheterization which revealed severe triple-vessel coronary artery disease with slow flow in the PLV that could be the culprit lesion. Codominant system, elevated LVEDP. Patient was seen by cardiothoracic surgery with plan for CABG on Wednesday. Patient has been maintained on heparin drip. Medication changes made yesterday by cardiothoracic surgery and relationship to amlodipine, shahzad nopril were both discontinued and patient started on hydralazine. Blood pressure 169/81, heart rate 63, pulse ox 96% on room air. Repeat CBC unremarkable. 07/22/2024 Patient examined this morning at the bedside. Patient's family is present. Patient currently denies chest pain or pressure. He denies shortness of breath. He is about to take a shower at the time of examination. He remains on IV heparin. Blood pressure slightly elevated with recent readings of 146/72 and 168/84. 07/23/2024 Patient examined this morning the bedside. Patient's family is present. He currently denies chest pain or pressure. He denies shortness of breath. He remains on IV heparin. Blood pressure this morning 151/71. His hydralazine was increased yesterday. He is anticipating surgery tomorrow. 07/25 Patient underwent CABG with 5 vessels [place] to LAD, radial to OM, SVG to diagonal, SVG to PDA and SVG to posterior lateral 07/24/2024. He has been doing well. He denies any chest pain or pressure. No significant shortness breath. He received IV albumin 250 mL this morning. CVP 6 and PA pressures 32/9 with a cardiac index 2.0 as morning and [place] catheter was discontinued. Has an appetite and remains in sinus rhythm. 07/26 Patient seen and examined. Patient denies any chest pain or pressure. Mild shortness breath. He did go in A. fib with relatively controlled heart rates in the 90s to 100s this morning. He has since converted with amiodarone bolus. 07/27/2024 Patient examined this morning at the bedside. Patient currently denies chest pain or pressure. He denies shortness of breath. Telemetry this morning reveals sinus mechanism. Patient's chest tube was discontinued this morning. Vital signs are stable. Blood pressure this morning 143/80. 07/28/2024 Patient examined this morning at the bedside. Patient denies chest pain or pressure. He denies shortness of breath. Telemetry reveals sinus mechanism. Blood pressures are running slightly high this morning with a systolic in the 150s. He has been started on lisinopril and his beta-eliud was increased this morning per CT surgery. PHYSICAL EXAM: VITAL SIGNS: Reviewed. GENERAL: Well-developed in no acute distress. NECK: Supple. No JVD or thyromegaly LUNGS: Respirations even and unlabored. Lungs essentially clear to auscultation bilaterally. HEART: Regular rate and rhythm. S1 and S2 heard. Systolic murmur noted EXTREMITIES: Normal range of motion. No clubbing or cyanosis. Peripheral pulses intact. No lower extremity edema ASSESSMENT: Non-STEMI, status post cardiac catheterization revealing triple-vessel disease Coronary artery disease, status post CABG x 5 vessels, 07/24/2024 Hypertension Hyperlipidemia Daily alcohol use Prostate cancer Former nicotine dependence Postoperative paroxysmal atrial fibrillation PLAN: Continue postoperative management per CT surgery Agree with addition of lisinopril started by CT surgery this morning. Additionally patient's beta-eliud was increased to 50 mg twice a day. Continue current cardiac medications Increase activity as tolerated Encourage use of incentive spirometer Continue telemetry monitoring Patient is stable for discharge from a cardiac standpoint Discharge per CT surgery Further recommendations pending patient course Nurse practitioner note has been reviewed by physician. Signing provider agrees with the documented findings, assessment, and plan of care documented by MOTION PI[employer]URE EQUIPMENT SUPERVISOR as a scribe. Objective - Vital Signs Vital signs: Vital Signs Temp 98.6 F 07/28/24 07:44 Pulse 76 07/28/24 07:52 Resp 16 07/28/24 07:44 BP 152/76 07/28/24 07:44 Pulse Ox 94 L 07/28/24 07:44 FiO2 21 07/25/24 08:11 Intake & Output 07/27/24 07/28/24 07/28/24 18:59 06:59 18:59 Intake Total 740 1080 240 Output Total 2004 1200 Balance -1265 -120 240 Weight 98 kg Intake: IV 20 Invasive Line 6 20 Oral 720 1080 240 Output: Chest Tube Drainage 5 Left Pleural 5 Urine 1999 1200 Other: Voiding Method Toilet Toilet Urinal Urinal # Bowel Movements 1 ABP, PAP, CO, CI - Last Documented Arterial Blood Pressure 135/71 Pulmonary Artery Pressure 44/19 Cardiac Output 4.6 Cardiac Index 2.2 - Labs CBC & Chem 7: 07/28/24 06:28 07/28/24 06:28 Labs: Abnormal Lab Results - Last 24 Hours (Table) 07/27/24 07/27/24 07/27/24 Range/Units 11:51 17:09 19:55 RBC (4.30-5.90) m/uL Hgb (13.0-17.5) gm/dL Hct (39.0-53.0) % Glucose (74-99) mg/dL POC Glucose (mg/dL) 127 H 122 H 125 H (70-110) mg/dL 07/28/24 07/28/24 07/28/24 Range/Units 05:59 06:28 06:28 RBC 2.93 L (4.30-5.90) m/uL Hgb 8.8 L (13.0-17.5) gm/dL Hct 27.3 L (39.0-53.0) % Glucose 104 H (74-99) mg/dL POC Glucose (mg/dL) 116 H (70-110) mg/dL
--- NOTE | 2024-07-28 11:40 | P.DS ---
Providers Date of admission: 07/20/24 00:13 Expected date of discharge: 07/28/24 Attending physician: Joss Briggs Consults: 07/20/24 00:10 Consult Physician Urgent Consulting Provider: Adam Garcia Consult Reason/Comments: NSTEMI Do you want consulting provider notified?: Yes 07/20/24 12:10 Consult Physician Routine Consulting Provider: Malick Dey Consult Reason/Comments: cabg Do you want consulting provider notified?: Already Contacted 07/22/24 15:15 Consult to Anesthesia Routine Consulting Provider: Anesthesia,Services Consult Reason/Comments: Cardiac Surgery Pre-Op 07/23/24 09:00 Consult Physician Routine Consulting Provider: Odessa Ramesh Consult Reason/Comments: Pulmonary management post CABG Do you want consulting provider notified?: Yes, Notify in am 07/24/24 14:47 Consult Physician Routine Consulting Provider: Raghav Duavl Consult Reason/Comments: Medical Management Do you want consulting provider notified?: Yes Primary care physician: Ricardo Cho MD Hospital Course: FINAL DIAGNOSIS: Triple-vessel coronary artery disease, non-STEMI this admission Chest pain on admission Acute blood loss anemia, expected Paroxysmal atrial fibrillation, status post ligation of the left atrial appendage Bilateral carotid artery stenosis 50 to 69% History of hypertension Hyperlipidemia, treated, cholesterol 161, LDL 97 Previous tobacco dependence, FEV1 76% of predicted Daily wine usage Prostate cancer, pending radiation therapy PRINCIPAL PROCEDURE: Coronary artery bypass grafting x 5 vessels (left internal mammary artery to the left anterior descending coronary artery, radial artery to the obtuse marginal coronary artery, saphenous vein graft to the diagonal coronary artery, saphenous vein graft to the posterior descending coronary artery, saphenous vein graft to the posterior lateral branch of the right coronary artery) Endoscopic harvest left radial artery Endoscopic harvest of bilateral greater saphenous veins Ligation of left atrial appendage using a 35mm ArtiClip Intraoperative epiaortic ultrasound Graft flow measurements using the DATY system Intraoperative transesophageal echocardiogram completed by anesthesia HISTORY OF PRESENT ILLNESS: This is a 64-year-old gentleman who follows outpatient with Dr. Cho for internal medicine and Dr. Castillo for cardiology. He presented to [facility] emergency room with complaints of chest pain with radiation to the left arm, denied shortness of breath, nausea, diaphoresis, or any other significant symptoms. States he has never had this kind of pain before. EKG demonstrated sinus bradycardia with heart rate in the low 50s. Chest x-ray was unremarkable. Lab work was unremarkable except elevated troponin 0.386, patient was ruled in for non-STEMI and admitted for evaluation and treatment. He was taken to the Atmospheric Physics Professor by Dr. Castillo, catheterization showed proximal LAD stenosis 90%, first obtuse marginal artery stenosis 70%, PLV subtotally occluded, proximal RCA stenosis 70%, and mid RCA stenosis 60 to 70%. Due to these findings consultation was placed to Dr. Dey for surgical revascularization recommendations. He was recommended to undergo urgent surgical myocardial revascularization. The usual perioperative course was discussed in detail with the patient and his family, all risks and benefits were explained, all questions were answered, and consent was obtained to proceed with surgery. The patient was kept inpatient due to the nature of his disease process and scheduled for surgery with Dr. Briggs. HOSPITAL COURSE: The patient was brought to the preoperative area 07/24/24, prepared in the usual fashion, and subsequently taken to the operating room where Dr. Briggs performed 5 vessel CABG. Upon completion of surgery the patient was transferred to the cardiovascular intensive care unit where he was recovered and monitored hemodynamically. He was extubated, all lines, tubes, and drips were discontinued when appropriate, and he was transferred to 3 S cardiac stepdown unit for further monitoring and rehabilitation. He did have a brief episode of atrial fibrillation with conversion after initiation of amiodarone. His oxygen was titrated down, he continued to work with physical and occupational therapy, he was tolerating oral diet, his pain was controlled, and he was ready to be discharged to home with A home care on postoperative day #4. He received written and verbal instruction regarding his medications, activity restrictions, signs and symptoms requiring physician notification, and follow-up appointments. Patient Condition at Discharge: Stable Plan - Discharge Summary Discharge Rx Participant: Yes New Discharge Prescriptions: New Furosemide [Lasix] 20 mg PO DAILY #5 tab Pantoprazole [Protonix] 40 mg PO AC-BRKFST #30 tab Acetaminophen Tab [Tylenol] 650 mg PO Q4HR PRN tab PRN Reason: Fever And/ Or Pain Aspirin 325 mg PO DAILY #30 tab Amiodarone [Cordarone] 400 mg PO BID #40 tab Atorvastatin [Lipitor] 40 mg PO DAILY #30 tab Metoprolol Tartrate [Lopressor] 50 mg PO BID #60 tab Clopidogrel [Plavix] 75 mg PO DAILY #30 tab Sennosides-Docusate Sodium [Senokot-S] 2 each PO HS PRN tab PRN Reason: Constipation Changed amLODIPine BESYLATE/BENAZEPRIL [amLODIPine BESYLATE/BENAZEPRIL 10-40 mg] 1 cap PO DAILY@1200 #0 Discontinued Aspirin 81 mg PO DAILY Labetalol HCl 300 mg PO Q12H Pravastatin Sodium [Pravachol] 40 mg PO DAILY Discharge Medication List Acetaminophen Tab [Tylenol] 650 mg PO Q4HR PRN tab 07/28/24 [Rx] Amiodarone [Cordarone] 400 mg PO BID #40 tab 07/28/24 [Rx] Aspirin 325 mg PO DAILY #30 tab 07/28/24 [Rx] Atorvastatin [Lipitor] 40 mg PO DAILY #30 tab 07/28/24 [Rx] Clopidogrel [Plavix] 75 mg PO DAILY #30 tab 07/28/24 [Rx] Furosemide [Lasix] 20 mg PO DAILY #5 tab 07/28/24 [Rx] Metoprolol Tartrate [Lopressor] 50 mg PO BID #60 tab 07/28/24 [Rx] Pantoprazole [Protonix] 40 mg PO AC-BRKFST #30 tab 07/28/24 [Rx] Sennosides-Docusate Sodium [Senokot-S] 2 each PO HS PRN tab 07/28/24 [Rx] amLODIPine BESYLATE/BENAZEPRIL [amLODIPine BESYLATE/BENAZEPRIL 10-40 mg] 1 cap PO DAILY@1200 #0 07/28/24 [Rx] Follow up Appointment(s)/Referral(s): Jemma Vargas NPC [Nurse Practitioner] - 08/03/24 12:30 pm (You will be seen in the surgeon's office behind the hospital in [facility], [address]. Office phone number is ) Meir Castillo MD [STAFF PHYSICIAN] - 08/08/24 9:30 am () Rehab Mana MURILLO,Cardiac [NON-STAFF] - 4 Weeks (You will receive a phone call in approximately 4-6 weeks for evaluation for cardiac rehab) Ricardo Cho MD [Primary Care Provider] - 08/11/24 11:00 am (Will see Dr. Chang as Dr. Cho is booked until mid August) Joss Briggs MD [STAFF PHYSICIAN] - 08/25/24 9:30 am Odessa Ramesh MD [STAFF PHYSICIAN] - 08/25/24 8:30 am JULIANNA Visiting Nurse, [NON-STAFF] - 1-2 Days (You should be seen by a nurse the day after discharge, then 2-3 times per week until you start cardiac rehab. Physical and Occupational Therapy will come out at least once, they will continue to come out if necessary) Ambulatory/Diagnostic Orders: Complete Blood Count w/diff [LAB.AMB] Time Frame: 3 Days, Location: None Selected Comprehensive Metabolic Panel [LAB.AMB] Time Frame: 3 Days, Location: None Selected Activity/Diet/Wound Care/Special Instructions: DISCHARGE INSTRUCTIONS: 1. No driving for 4 weeks, or until physician gives their ok. 2. The patient should sleep in their own bed, no medical bed needed. 3. Stairs are not an issue. If the bedroom is upstairs, it is advised that the patient go up at night and down in the morning for the first week. Go slowly, using handrail and take 1 step at a time. 4. ALEJANDRINA hose are to be worn for 30 days post surgery or until physician discontinues. 5. Heart hugger is to be worn 100% of the time until physician discontinues.(except when showering) 6. No lifting, pushing, or pulling more than 10 pounds for 12 weeks. The physician will advise of any restriction changes. 7. The patient is expected to continue the prescribed walking program. 8. Continue pain control per as needed orders. 9. Continue with incentive spirometry and splinting/heart hugger until otherwise directed by the physician. 10. Must shower daily using liquid antibacterial soap 11. Routine sternal incision care. No powders, lotions, ointments on incisions. No dressings are necessary on incisions unless they are draining. Dermabond tape is to remain on sternal incision until surgeon follow-up. 12. Please call surgeon/ROOF BOLTER HELPER for temp greater than 101 F or purulent drainage from incisions. 13. You should weigh yourself daily, record and bring log with you to follow up appointments. 14. All prescriptions given by surgeon for 30 days. Refills need to be filled through materials director/primary care physician. 15. A Red armband has been placed on the patient. It should be worn for 30 days post discharge from surgery and will be removed by the cardiac surgeons. If an ER visit is necessary, please make sure the number on the Red armband is called before going to ER. 16. You have been referred to and are expected to begin Cardiac Rehab in approximately 4-6 weeks. 17. Quitting smoking is the most important step you can take to improve your health. For additional information and assistance to quit smoking, please call the [place] tobacco quit line (7-418-VIFN-NOW/ ) or online: [email or web address] HOME HEALTH SERVICES TO PROVIDE: RN SKILLED HOME CARE SERVICES FOR POST-OP SURGICAL PATIENTS WITH THE FOLLOWING: Coronary Artery Bypass Surgery (CABG), Mitral Valve Replacement/Repair ( MVR), Aortic Valve Replacement/Repair (AVR) RN TO CONTINUE EDUCATION FROM ``ROAD TO A HEALTH HEART PATIENT EDUCATION MANUAL (GIVEN TO PATIENT IN THE HOSPITAL) MEDICATION RECONCILIATION WITH EDUCATION NEEDED ON FIRST HOME VISIT EMPHASIZE IMPORTANCE OF WEARING BREAST SUPPORT/HEART HUGGER ENCOURAGE USE OF INCENTIVE SPIROMETER 10 X EVERY HOUR WHILE AWAKE ENCOURAGE UTILIZATION OF LOWER EXTREMITY COMPRESSION STOCKINGS/ALEJANDRINA HOSE and ELEVATE LEGS ABOVE LEVEL OF HEART WHILE AT REST. ENCOURAGE AMBULATION 3-5x/day INCREASING TOLERATES, WHILE AVOIDING EXTREMES IN TEMPERATURE FREQUENCY: RN TO OPEN THE PATIENT WITHIN 24 HOURS OF DISCHARGE FROM THE HOSPITAL WITH TELEHEALTH INSTALLED AT [facility], RN TO VISIT 2-3 X A WEEK FOR 4 WEEKS ESTABLISHED BY PATIENT NEEDS. LABORATORY: CBC, CMP TO BE DRAWN ON THE THIRD DAY HOME, (RAN STAT) FAX RESULTS TO [phone]. TELEHEALTH PARAMETERS: WEIGHT: NOTIFY MD OF WEIGHT GAIN OF 2 LBS IN 24 HOURS OR 5 LBS IN ONE WEEK HR: NOTIFY MD OF HR <55 BPM OR HR>100 BPM BP: NOTIFY MD IF BP <90/55 OR BP>140/100 O2 SAT: NOTIFY MD IF PO2<93% ON ROOM AIR SEND TELEHEALTH REPORT TO GRAVURE PRINTING MACHINIST AND CARDIOVASCULAR SURGEON THE FIRST WEEK OF CARE AND THEN BI-WEEKLY. PLEASE ADDITIONALLY COMMUNICATE ANY ABNORMALS AND NEW FINDINGS TO THE SURGEONS OFFICE. Discharge Disposition: HOME WITH HOME HEALTH SERVICES
[2024-07-28 11:54] VITALS: BP 130/72; PULSE 64
--- NOTE | 2024-07-28 12:24 | P.PN ---
Subjective Progress Note Date: 07/28/24 This is a 64-year-old male patient with known history of hypertension hyperlipidemia prostate cancer and remote history of smoking, came into the hospital because of chest pain and the patient was found to have elevated troponins and he ruled in for non-ST segment elevation myocardial infarction. Subsequent cardiac catheterization showed 90% LAD, 70% first obtuse marginal branch, subtotally occluded PLV, 70% proximal RCA and 60 to 70% mid RCA. Following that, patient was seen by cardiothoracic surgery and the patient is being considered for bypass surgery. In fact, the patient will be taken for b ypass tomorrow. CAT scan of the chest was done on 07/20/2024 and showed some scattered bilateral pulmonary nodules that needs to be further monitored on outpatient basis. These are nonspecific findings. No other acute abnormalities have been noted. Echocardiogram done on 07/20/2024 preserved LV function without any significant abnormalities. The white cell count is at 7.1 with a hemoglobin 12.4 and a platelet count of 276. Electrolytes are all within normal limits. The patient is currently on room air oxygen. Is ambulating. Bedside spirometry was done and his FEV1 is in order of 76% of predicted. Patient was evaluated today 07/24/2024, patient underwent CABG, for triple-vessel coronary artery disease, brought back to the ICU intubated and mechanically ventilated, and I am seeing him on follow-up. Patient is on assist-control rate of 12 tidal volume 500 FiO2 100% and PEEP of 5 ABG showed a pO2 of 141 pCO2 47 pH of 7.32 hence his FiO2 was cut down and his rate was increased to 14. Patient has cardiac output of 5.6, cardiac index of 2.7, patient is on multiple drips including Cleviprex at 8 mg/h, nitro at 5 mcg /min, and he is on propofol at 30 mcg/kg/min chest x-ray postoperatively showed nasogastric tube in distal esophagus, endotracheal tube above the adwoa, and no acute process noted.Cannot rule out pneumonia WBC 13.9 hemoglobin is 11.4 Patient is sedated, on propofol Patient was evaluated today on 07/25/2024, patient isPOD #1 coronary artery bypass grafting x 5 vessels (left internal mammary artery to the left anterior descending coronary artery, radial artery to the obtuse marginal coronary artery, saphenous vein graft to the diagonal coronary artery, saphenous vein graft to the posterior descending coronary artery, saphenous vein graft to the posterior lateral branch of the right coronary artery), endoscopic harvest left radial artery, patient is in the ICU, extubated last night at 6:36 PM, presently on room air, O2 sats 93%, patient is already ambulating with assistance, not requiring any inotropes or pressors, he is only on insulin drip. His cardiac output is 4.3 with a cardiac index of 2.0. Pressure 32/29 CVP of 6. Chest x- ray is showing minimal bibasilar atelectasis left more so than right, patient is achieving over 1500 cc with incentive spirometry, overall his postoperative course is uneventful Patient was evaluated today on 07/26/2024, he is now postoperative day #2.coronary artery bypass grafting x 5 vessels (left internal mammary artery to the left anterior descending coronary artery, radial artery to the obtuse marginal coronary artery, saphenous vein graft to the diagonal coronary artery, saphenous vein graft to the posterior descending coronary artery, saphenous vein graft to the posterior lateral branch of the right coronary artery), patient is on room air, not in any distress, however he developed atrial fibrillation with RVR and he required amiodarone bolus and placed on amiodarone drip at 1 mg/min. Patient denies any shortness of breath denies any chest pain, continues to have chest tubes in place and continues to have right sided Cordis. He is achieving over 1500 cc on his incentive spirometry. Patient is already ambulating with assistance in the hallway. He is hemodynamically stable, not requiring any inotropes or any pressors. Chest x-ray showed minimal as expected left basilar atelectasis, no acute processes noted. The patient is seen today July 27, 2024 in follow-up on the [facility]. Postoperative day #3. He is awake and alert in no acute distress. He is sitting up in a chair at the bedside. He is maintaining good O2 saturation in the 90s on room air. Denies any shortness of breath, cough or congestion. His pain is well-managed. He is working well with the incentive spirometer. Chest x-ray reveals cardiomegaly with mild pulmonary edema. White count 8.2. Hemoglobin 9.3. Platelets 240. Sodium 135. Potassium 3.9. Bicarb 21. BUN 18. Creatinine 0.85. Glucose 123. He is continued on bronchodilators. Heparin for DVT prophylaxis. The patient is seen today July 28, 2024 in follow-up on the selective care unit. Postoperative day #4. He is currently sitting up in a chair at the bedside. Awake and alert in no acute distress. Maintaining good O2 saturations in the 90s on room air. He is continued on bronchodilators. Continues to work well with the incentive spirometer. X-ray reveals similar mild pulmonary edema. White count 9.3. Hemoglobin 8.8. Platelets 342. Sodium 139. Potassium 4.0. Bicarb 25. BUN 14. Creatinine 0.85. Glucose 104. He has been up ambulating with assistance. Heparin for DVT prophylaxis. Objective - Vital Signs Vital signs: Vital Signs Temp 98.6 F 07/28/24 11:53 Pulse 64 07/28/24 11:53 Resp 16 07/28/24 11:53 BP 130/72 07/28/24 11:53 Pulse Ox 94 L 07/28/24 11:53 FiO2 21 07/25/24 08:11 Intake & Output 07/27/24 07/28/24 07/28/24 18:59 06:59 18:59 Intake Total 740 1080 240 Output Total 2004 1200 Balance -1265 -120 240 Weight 98 kg Intake: IV 20 Invasive Line 6 20 Oral 720 1080 240 Output: Chest Tube Drainage 5 Left Pleural 5 Urine 1999 1200 Other: Voiding Method Toilet Toilet Toilet Urinal Urinal Urinal # Bowel Movements 1 ABP, PAP, CO, CI - Last Documented Arterial Blood Pressure 135/71 Pulmonary Artery Pressure 44/19 Cardiac Output 4.6 Cardiac Index 2.2 - Exam GENERAL EXAM: Alert, 64-year-old male, on room air, comfortable in no apparent distress. HEAD: Normocephalic. EYES: Normal reaction of pupils, equal size. NOSE: Clear with pink turbinates. THROAT: No erythema or exudates. NECK: No masses, no JVD. CHEST: No chest wall deformity. Sternum stable. Heart hugger in place. LUNGS: Equal air entry with no crackles, wheeze, rhonchi or dullness. CVS: S1 and S2 normal with no audible murmur, regular rhythm. ABDOMEN: No hepatosplenomegaly, normal bowel sounds, no guarding or rigidity. SPINE: No scoliosis or deformity SKIN: No rashes CENTRAL NERVOUS SYSTEM: No focal deficits, tone is normal in all 4 extremities. EXTREMITIES: There is no peripheral edema. No clubbing, no cyanosis. Peripheral pulses are intact. - Labs CBC & Chem 7: 07/28/24 06:28 07/28/24 06:28 Labs: Abnormal Lab Results - Last 24 Hours (Table) 07/27/24 07/27/24 07/28/24 Range/Units 17:09 19:55 05:59 RBC (4.30-5.90) m/uL Hgb (13.0-17.5) gm/dL Hct (39.0-53.0) % Glucose (74-99) mg/dL POC Glucose (mg/dL) 122 H 125 H 116 H (70-110) mg/dL 07/28/24 07/28/24 Range/Units 06:28 06:28 RBC 2.93 L (4.30-5.90) m/uL Hgb 8.8 L (13.0-17.5) gm/dL Hct 27.3 L (39.0-53.0) % Glucose 104 H (74-99) mg/dL POC Glucose (mg/dL) (70-110) mg/dL Assessment and Plan Assessment: POD #4 coronary artery bypass grafting x 5 vessels with a left internal mammary artery to the left anterior descending coronary artery, radial artery to the obtuse marginal coronary artery, saphenous vein graft to the diagonal coronary artery, saphenous vein graft to the posterior descending coronary artery, saphenous vein graft to the posterior lateral branch of the right coronary artery Acute non-ST elevation myocardial infarction on this admission Postoperative atrial fibrillation with RVR, expected patient is on amiodarone Benign essential hypertension Dyslipidemia Ex-smoker, preoperative FEV1 of 76% History of prostate cancer pending radiation therapy Postoperative atelectasis, expected patient is achieving over 1000 cc on his incentive spirometry Plan: The patient was seen and evaluated Chest x-ray, labs and medications reviewed Stable and on room air Continue with the incentive spirometer Home once cleared by CT services Follow-up in our office in 1 week This patient was seen independently by the pulmonary nurse practitioner addressing pulmonary issues I have personally seen and examined the patient, performed the documentation and the assessment and plan as written. Number of minutes spent on the visit: 22.
== END 2024-07-28 12:22 | disposition home health service (06) | DRG 233 ==
LOC: EC 21:25 → 3SCARD 07-20 00:13 → 2SICU 07-24 06:19 → 3SCARD 07-26 17:49
PROVIDERS: ADMIT Surgery; ATTEND Surgery
PROC: 4A023N7 Measurement of Cardiac Sampling and Pressure, Left Heart, Percutaneous Approach (ICD-10-PCS; 2024-07-20)
PROC: B2111ZZ Fluoroscopy of Multiple Coronary Arteries using Low Osmolar Contrast (ICD-10-PCS; 2024-07-20)
PROC: 03BC4ZZ Excision of Left Radial Artery, Percutaneous Endoscopic Approach (ICD-10-PCS; 2024-07-24)
PROC: 06BQ4ZZ Excision of Left Saphenous Vein, Percutaneous Endoscopic Approach (ICD-10-PCS; 2024-07-24)
PROC: 06BP4ZZ Excision of Right Saphenous Vein, Percutaneous Endoscopic Approach (ICD-10-PCS; 2024-07-24)
PROC: 02L70CK Occlusion of Left Atrial Appendage with Extraluminal Device, Open Approach (ICD-10-PCS; 2024-07-24)
PROC: B24BZZZ Ultrasonography of Heart with Aorta (ICD-10-PCS; 2024-07-24)
PROC: 5A1221Z Performance of Cardiac Output, Continuous (ICD-10-PCS; 2024-07-24)
PROC: 4A0305C Measurement of Arterial Flow, Coronary, Open Approach (ICD-10-PCS; 2024-07-24)
PROC: B24BZZ4 Ultrasonography of Heart with Aorta, Transesophageal (ICD-10-PCS; 2024-07-24)
PROC: 02100A3 Bypass Coronary Artery, One Artery from Coronary Artery with Autologous Arterial Tissue, Open Approach (ICD-10-PCS; principal; 2024-07-24 08:00)
PROC: 0212093 Bypass Coronary Artery, Three Arteries from Coronary Artery with Autologous Venous Tissue, Open Approach (ICD-10-PCS; 2024-07-24 08:00)
PROC: 02100Z9 Bypass Coronary Artery, One Artery from Left Internal Mammary, Open Approach (ICD-10-PCS; 2024-07-24 08:00)
DX: I21.4 Non-ST elevation (NSTEMI) myocardial infarction (principal); J96.01 Acute respiratory failure with hypoxia; D62 Acute posthemorrhagic anemia; N17.9 Acute kidney failure, unspecified; C61 Malignant neoplasm of prostate; I65.23 Occlusion and stenosis of bilateral carotid arteries; D72.828 Other elevated white blood cell count; I11.9 Hypertensive heart disease without heart failure; E78.00 Pure hypercholesterolemia, unspecified; I25.10 Atherosclerotic heart disease of native coronary artery without angina pectoris; I48.0 Paroxysmal atrial fibrillation; E16.2 Hypoglycemia, unspecified; R73.9 Hyperglycemia, unspecified; R91.8 Other nonspecific abnormal finding of lung field; Z82.49 Family history of ischemic heart disease and other diseases of the circulatory system; Z87.891 Personal history of nicotine dependence
CPT/HCPCS: 36415; 71045; 71046; 71250; 80048; 80053; 80061; 81003; 82272; 82330; 82805; 83036; 83735; 84443; 84484; 85025; 85027; 85610; 85730; 86850; 86891; 86900; 86901; 86920; 87070; 93005; 93306; 93458; 93880; 93922; 93970; 94150; 94640; 94760; 96365; 96366; 96375; 99291

== ENCOUNTER → 2024-09-26 | Outpatient (CLI) | payer BC ==
[2024-09-26 15:06] LABS: ALT 15 U/L (10-49); AST 17 U/L (14-35); Albumin 4.3 g/dL (3.8-4.9); Albumin/Globulin Ratio 1.65 Ratio (1.60-3.17); Alkaline Phosphatase 107 U/L (41-126); BUN/Creat Ratio 14.73 Ratio (12.00-20.00); Blood Urea Nitrogen 16.2 mg/dL (9.0-27.0); Calcium 9.7 mg/dL (8.7-10.3); Carbon Dioxide 26.3 mmol/L (21.6-31.8); Chloride 109 mmol/L (96-109); Chol/HDL Ratio 2.89 Ratio; Globulin 2.6 g/dL (1.6-3.3); Glucose 104 mg/dL (70-110); LDL Cholesterol,Calculated 86.9 mg/dL (0.0-131.0); Potassium 4.8 mmol/L (3.5-5.5); Sodium 144 mmol/L (135-145); Total Bilirubin 0.3 mg/dL (0.3-1.2); Total Protein 6.9 g/dL (6.2-8.2); VLDL Calculation 14.48 mg/dL (5.00-40.00)
== END | disposition home or self-care (01) ==
LOC: LABWHC1 08:05
PROVIDERS: ATTEND Internal Medicine Interventional Cardiology
DX: E78.2 Mixed hyperlipidemia (principal)
CPT/HCPCS: 36415; 80053; 80061

== ENCOUNTER → 2025-02-16 | Outpatient (CLI) | payer MEDICARE, BC ==
[2025-02-16 11:14] LABS: ALT 21 U/L (10-49); AST 22 U/L (14-35); Chol/HDL Ratio 2.59 Ratio; LDL Cholesterol,Calculated 61.6 mg/dL (0.0-131.0)
== END | disposition home or self-care (01) ==
LOC: LABWHC1 07:01
PROVIDERS: ATTEND Nurse Practitioner Adult Health
DX: E78.2 Mixed hyperlipidemia (principal)
CPT/HCPCS: 36415; 80061; 84450; 84460

== ENCOUNTER → 2025-02-20 | Outpatient (CLI) | payer MEDICARE, BC ==
[2025-02-20 10:42] LABS: African American GFR (CKD) >90 (>60 ml/min/1.73 sqM); Blood Urea Nitrogen 18 mg/dL (9-20); Non-African American GFR(CKD) >90 (>60 ml/min/1.73 sqM)
--- NOTE | 2025-02-20 14:44 | CT ---
EXAMINATION TYPE: CT chest w con DATE OF EXAM: 02/20/2025 11:10 AM COMPARISON: 07/20/2024 . CLINICAL INDICATION: Male, 65 years old with history of R91.8 OTHER NONSPECIFIC ABNORMAL FINDING OF L SEAN F; PHH, lung nodule TECHNIQUE: CT of the chest after IV contrast. Coronal and sagittal reconstructions performed. Contrast used:100 mL of Isovue [address] DLP: 433.2 mGycm, Automated exposure control for dose reduction was used. FINDINGS: Median sternotomy with post-CABG changes. 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 Heart borderline enlarged without pericardial effusion. Ectatic aortic root at 3.8 cm and ascending aorta at 3.6 cm. Complex large vessel branching anatomy. Some scattered prominent but nonenlarged mediastinal lymph nodes measuring up to 9 mm are redemonstra omar. No progressive thoracic adenopathy seen. Strandy scarring/atelectasis within the lingula and to a lesser extent anterior right midlung. 6 mm anterior right midlung pulmonary nodule remains unchanged. 6 mm left basilar pulmonary nodule remains unchanged. 3 mm left lower lobe pulmonary nodule axial image 44 remains unchanged. 3 mm right basilar pulmonary nodule, axial image 40 is unchanged. 4 mm subpleural pulmonary nodule posterior right lower lobe, axial image 40 is unchanged. 5 mm left hilar pulmonary nodule, axial image 28 is unchanged. Scattered mild to moderate stool. There may be a tiny hiatal hernia. Bones: Multilevel moderate degenerative disc disease mid to lower thoracic spine with multiple endpla te Schmorl's nodes. Incidental 4.6 cm wide lipoma of the left lateral mid chest wall musculature. IMPRESSION: 1. Scattered 6 mm and smaller pulmonary nodules remain unchanged for 7 months. This favors a benign e tiology. Additional one-year follow-up to document more long-term stability. 2. Interval post-CABG changes. Follow up recommendations for incidental pulmonary nodules, if there are any, are per [employer] [place] [employer] [employer] or [employer]. [facility], , 02/20/2025 2:41 PM
== END | disposition home or self-care (01) ==
LOC: RADCTMAIN 10:02
PROVIDERS: ATTEND Internal Medicine Critical Care Medicine
DX: R91.8 Other nonspecific abnormal finding of lung field (principal); Z95.1 Presence of aortocoronary bypass graft
CPT/HCPCS: 82565; 84520; 71260; 36415; Q9967